=== PATIENT | male | born 1955 | race Caucasian/White ===

== ENCOUNTER 2023-02-03 10:12 | Outpatient (CLI) | payer MEDICARE, SELFPAY ==
[2023-02-03 12:16] LABS: Urine Cotinine NEGATIVE
== END 2023-02-03 10:13 | disposition home or self-care (01) ==
PROVIDERS: PCP Family Medicine; Visit Provider Neurological Surgery
DX: F17.200 Nicotine dependence, unspecified, uncomplicated (principal); Z79.899 Other long term (current) drug therapy
CPT/HCPCS: 80307

== ENCOUNTER 2023-02-27 10:11 | Outpatient (CLI) | payer MEDICARE, SELFPAY ==
[2023-02-27 12:30] LABS: Hematocrit 32.5 % (42.0-52.0); Hemoglobin 10.4 g/dL (14.0-18.0); Mean Corpuscular Volume 103.2 fl (80-100); Mean Platelet Volume 10.4 fl (7.4-10.4); Platelet Count Result 349 k/mm3 (150-375); Red Blood Count 3.15 M/mm3 (4.6-6.20); Red Cell Distribution Width 16.6 % (11.5-14.5); White Blood Count 8.5 K/mm3 (4.5-10.0)
[2023-02-27 12:37] LABS: Appearance Urine Clear (Clear); Bacteria Urine None Seen /hpf; Bilirubin Urine Negative (Negative); Blood Urine Trace (Negative); Color Urine Yellow (Yellow); Glucose Urine UA Negative (Negative); Ketones Urine Negative (Negative); Leukocyte Esterase Ur Negative LEU/UL (Negative); Nitrate Urine Negative (Negative); Non Pathogenic Casts 0-2; Protein Urine Negative (Negative); Specific Grav Ur 1.017 (1.001-1.035); Squamous Epithelial Cell Urine None seen /hpf (Few); Urobilinogen Urine 0.2 mg/dL (<2.0); WBC Urine 0-5 /hpf
[2023-02-27 12:42] LABS: Add Urine Microscopic? YES
[2023-02-27 12:44] LABS: Anion Gap 7 mmol/L (8-16); Blood Urea Nitrogen 10 mg/dL (9-20); Calcium 9.1 mg/dL (8.4-10.2); Carbon Dioxide 27 mmol/L (22-30); Chloride 102 mmol/L (98-107); Estimated Glomerular Filt Rate > 60; Glucose 97 mg/dL (65-110); Potassium 3.7 mmol/L (3.4-5.0); Sodium 136 mmol/L (137-145)
[2023-02-27 12:48] LABS: Prothrombin Time 13.1 Seconds (11.1-14.7)
[2023-02-27 12:50] LABS: Partial Thromboplastin Time 45.2 SECONDS (22.3-36.8)
== END 2023-02-27 10:12 | disposition home or self-care (01) ==
LOC: ANHSURGERY 10:19
PROVIDERS: PCP Family Medicine; Visit Provider Neurological Surgery
DX: G95.9 Disease of spinal cord, unspecified (principal); Z01.818 Encounter for other preprocedural examination
CPT/HCPCS: 36415; 80048; 81001; 85027; 85610; 85730; 86850; 86900; 86901

== ENCOUNTER 2023-03-01 10:20 | Inpatient (IN) | payer MEDICARE, SELFPAY ==
--- NOTE | 2023-02-24 14:07 | PC.NURSE ---
Report to the Outpatient Waiting Room, entrance under the green pavilion located off [facility], at [email or web address] on date __03/01/23 . Planned Procedure Time: _1030 . Time changes happen often and if your time is changed the preop area will call you the afternoon before. - You and your visitor will be asked to self-screen and do not enter if you have any COVID symptoms. - A mask is optional within the hospital at this time. Patients may have clear liquids (water, carbonated beverages, clear teas, apple juice) until 3 hours prior to surgery with a maximum of 20 ounces. - No food from midnight until time of surgery - Infants may have breast milk until 4 hours before surgery, formula 6 hours prior to surgery. - Children will be allowed to drink immediately following surgery. If applicable, please bring a bottle or sippy cup to assist with drinking. Juice, water, soda, and popsicles are readily available. For infants on formula, please bring formula the day of surgery. Pacifiers are allowed. Take the following medications with a SIP of water the morning of surgery: __GABAPENTIN DO NOT STOP ANY OF YOUR OTHER PRESCRIPTION MEDICATIONS PRIOR TO SURGERY ?EXCEPT THE FOLLOWING Medications to discontinue per physician _SPOUSE STATES HOLD ASPIRIN AND MELOXICAM LAST DOSE 02/21/[address] LAU Please no make-up, nail mongolian, hairspray, perfume, deodorant, or body powder the day of surgery. No jewelry (including any body piercings) or valuables the day of surgery, leave them at home. Please take a shower or bath the night before, or the morning of, surgery with an antibacterial soap. Wear comfortable, loose fitting clothing. Children are encouraged to wear pajamas. - Jewelry must be removed prior to entering the operating room. Rings and piercings that are not removed may be cut off. - The hospital will not accept responsibility for valuables. - Please leave all valuables, including medications, at home the day of surgery. If you are going home after surgery, a licensed class b truck driver must drive you home. - NO public transportation without another adult if you receive anesthesia. - We recommend that an adult stay with you for 24 hours following discharge. - We also recommend that you do not drive, make important decision, drink alcoholic beverages, or take any drugs that were not prescribed by your health care provider for at least 24 hours after your discharge time. For Pediatric surgeries, we recommend two adults accompany the child home. Follow any additional instructions given to you from your surgeon. If you or anyone in your household have experienced Covid symptoms in the past week, please notify your surgeon or the nurse liaison at the phone number below for possible testing. Telephone instructions given to _SPOUSE VICKI and asked if any additional questions and then verbalized understanding. Patient advised to call surgeon office or pre surgery nurse liaison [phone] if any additional questions.
[2023-02-24 14:17] VITALS: BMI 29.7
[2023-03-01] VITALS (24 sets, daily range): BP systolic 86–156; BP diastolic 45–95; PULSE 67–87; RESP 12–20; TEMP 35.6–37.3; O2SAT 94–100
--- NOTE | ~2023-03-01 | XR_ITS ---
EXAMINATION: XR fluoroscopy no charge DATE: 03/01/2023 11:34 INDICATION: Cervical decompression TECHNIQUE: 3 fluoroscopic images of the spine were obtained during procedure performed by Dr. Rea . Radiologist was not present for the imaging or procedure. The amount of fluoroscopy time used fili g this procedure was 0.4 minutes. COMPARISON: CT dated 01/27/2011 FINDINGS: Images demonstrate C3-C6 laminectomies and C3-T7 instrumented posterior spinal fusion with bilateral vertical marlin and lateral mass screw fixation. Endotracheal tube with distal tip below the level of th e thoracic inlet. IMPRESSION: 1. C3-C6 laminectomies and C3-C7 instrumented posterior spinal fusion. See procedure note for further detail. Reviewed, dictated and finalized at location A. SPECIALIST IMPRESSION: 1. C3-C6 laminectomies and C3-C7 instrumented posterior spinal fusion. See proc edure note for further detail.
[2023-03-01] MEDS: LACTATED RINGERS 1,000 ML 30 ML IV CONT ×3 (07:00→14:14)
--- NOTE | 2023-03-01 07:07 | WPDANESEPPF ---
Anes - Initial Pre Proc Eval Procedure: Operation Date: 03/01/23 07:30 Proposed Procedures p Posterior Cervical Decompression and Fusion C3-4, C6-7 - Coty Rea MD Date/Time: 03/01/23 07:07 Surgeon: Coty Rea MD Pre Op Diagnosis: Cerv Stenosis Patient Data Age: 67 Gender: M Height: 1.74 m Weight: 89.95 kg Allergies Allergy/AdvReac Type Severity Reaction Status Date / Time No Known Allergies Allergy Unknown Verified 02/24/23 13:45 Home Medications Medication Instructions Recorded Confirmed Type aspirin 81 mg tablet,delayed 81 mg PO DAILY 01/06/23 02/24/23 History release (Adult Low Dose Aspirin) cetirizine 10 mg capsule (Zyrtec) 10 mg PO DAILY PRN Allergy Symptoms 01/06/23 02/24/23 History citalopram 40 mg tablet 40 mg PO HS 01/06/23 02/24/23 History meloxicam 15 mg tablet 15 mg PO DAILY 01/06/23 02/24/23 History methocarbamol 750 mg tablet 750 mg PO TID 01/06/23 02/24/23 History rosuvastatin 5 mg tablet 5 mg PO HS 01/06/23 02/24/23 History albuterol sulfate 90 mcg/actuation 1 inh inhalation QID PRN Shortness 02/24/23 02/24/23 History aerosol inhaler Of Breath cimetidine 200 mg tablet 200 mg PO DAILY 02/24/23 02/24/23 History gabapentin 600 mg tablet 600 mg PO BID 02/24/23 02/24/23 History hydrocodone 7.5 mg-acetaminophen 1 tablet PO PRN PRN Pain 02/24/23 02/24/23 History 325 mg tablet lorazepam 0.5 mg tablet 0.5 mg PO HS 02/24/23 02/24/23 History Laboratory Tests 03/01/23 06:59 APTT Pending Patient hx anesthesia problems: none Family hx anesthesia problems: none Results Review: All pre-operative results and documents have been reviewed as part of the pre-operative evaluation. [facility] Past Medical History Medical History BMI 29.0-29.9,adult BMI 30.0-30.9,adult Hernia Surgical History Surgical History H/O rotator cuff surgery History of ankle surgery Family History Family History Father Heart disease Mother Sibling Hypertension Heart disease Breast cancer Brain tumor Social History Social History Smoking packs per day: 2 Smoking cigarettes per day: 40.0 Years smoked: 55 Smoking pack-years: 110.00 Smoking status: Former smoker Tobacco type: cigarettes Second hand tobacco smoke exposure: Yes Smoking end date: 01/27/23 Alcohol intake: current Drinks per week: 6 Substance use: never Substance use type: does not use Lack of Transportation: No Lack of Food: Never True Current Housing: I Have Housing Concerned About Future Housing: No Difficulty Paying Gas/Electric Bills: No Difficulty Paying for Meds: No Currently Unemployed: No Education: High School Diploma/GED Difficulty w/ Childcare or Family Care: No Living arrangements: with family Occupation/Education: retired Additional occupation/education comments: [employer] Gender identity (if verbalized by the patient): Male Spiritual care concerns: No Anes - Eval Final PreProcedure Day of Procedure 03/01/23 07:07 Patient weight: overweight Heart: regular rate and rhythm Lungs: decreased breath sounds Airway: Mallampati scale class II Neurological: alert and oriented Last oral intake: >/= 8 hours ASA classification: III Emergent: no Anesthetic plan: proceed Anesthesia type and monitoring: general ETT and standard monitoring Results Review: All pre-operative results and documents have been reviewed as part of the pre-operative evaluation. Informed Consent: The patient's anesthetic plan and its attendant risks and benefits were discussed with the patient/family/POA. Questions were solicited and answers provided to the satisfaction of the patient/family/POA.
--- NOTE | 2023-03-01 07:18 | WPDHPUPDATE1 ---
History and Physical Update Update Date/Time: 03/01/23 07:18 History and Physical has been reviewed, including an updated exam of the patient. There are NO changes in the patient's condition. Risks, benefits, and alternatives have been discussed and questions answered. Patient agrees to proceed with procedure.
[2023-03-01 07:29] LABS: Partial Thromboplastin Time 41.6 SECONDS (22.3-36.8)
--- NOTE | 2023-03-01 07:35 | SUR.PREOP ---
PTT WAS ELEVATED, DR LAU AWARE, ALSO SCRATCHES WERE FOUND ON HIS LEFT LEG. PT HAD SCRATCHED HIMSELF. DR LAU AWARE, OK TO PROCEDE.
[2023-03-01] MEDS: ceFAZolin 2 GM/D5W 50 ML 2 GM/50 ML BAG IVPB ×2 (07:39→16:42)
[2023-03-01] MEDS: CLINDAMYCIN 900 MG/D5W 50 ML 900 MG/50 ML PIGGYBACK 50 MG IVPB (08:51)
[2023-03-01] MEDS: VANCOMYCIN HCL 1,000 MG VIAL 1000 MG TOPICAL (09:15)
[2023-03-01] MEDS: BUPIVACAINE/EPINEPHRINE 0.5% 50 ML VIAL 20 ML INFILTRATE (09:18)
--- NOTE | 2023-03-01 12:21 | PM.OP ---
Procedure Note - Brief Procedure Note - Brief Date of procedure: 03/01/23 cervical myelopathy, cervical stenosis, cervical spondylolisthesis C4-5 Post-op diagnosis: Same Procedure performed: Posterior cervical instrumentation and arthrodesis C3-4, C4-5, C5-6, C6-7 Posterior cervical laminectomy C4, C5, and C6 Use of neuromonitoring Surgeon: Coty Rea MD Anesthesia: GETA Findings: Successful procedure without complication. Stable neuromonitoring throughout the case Estimated blood loss (mL): 500 Drains: Yes Packing: No Pathology: None sent Complications: None Condition: Stable Disposition: PACU
[2023-03-01] MEDS: hetaSTARCH 6%/NACL 500 ML IV CONT (12:40)
[2023-03-01 12:53] LABS: Hematocrit 27.3 % (42.0-52.0); Hemoglobin 8.6 g/dL (14.0-18.0)
[2023-03-01] MEDS: SODIUM CHLORIDE 0.9% IV 250 ML 30 ML IV CONT (13:20)
[2023-03-01] MEDS: fentaNYL CITRATE INJ (*CRX) 100 MCG/2 ML VIAL 25 MCG IV PUSH ×4 (13:55→14:28)
--- NOTE | 2023-03-01 14:10 | W.PM.PROC2 ---
Procedure Note - Detailed Date of Procedure 03/01/23 Pre-op Diagnosis Cervical myelopathy Cervical stenosis Cervical spondylolisthesis at C4-5 Post-op Diagnosis Same Procedure Performed 1. C3, C4, C5, C6, and C7 lateral mass instrumentation 2. C3-4, C4-5, C5-6, and C6-7 arthrodesis with autograft and allograft 3. C4, C5, and C6 laminectomies 4. Use of C-arm for fluoroscopy 5. Use of neuromonitoring including motors, SSEP, and EMG Surgeon Coty Rea MD Anesthesia General Description of Procedure The patient was brought to the operating room where endotracheal anesthesia was induced. Neuromonitoring leads were attached. The [place] headholder was applied, and the patient was transferred to the operating table in the prone position. The head was secured to the bed. All pressure points were padded. The C-arm was used to evaluate the planned incision. The planned surgical site was prepped and draped in usual sterile fashion. Time out was conducted, and local anesthesia was injected. A 10-blade scalpel was used to make the incision. The subcutaneous tissue was dissected with the bovie until the spinous processes were encountered. Self-retaining retractors were placed. A clamp was placed on a spinous process which was confirmed to be the C3 level with the C-arm. The incision was extended inferiorly to better expose down to the inferior level. The muscles were elevated in a subperiosteal fashion to expose the laminae and lateral masses of C3 through C7 bilaterally. The facet joints were exposed and defined with the bovie, and the fighter pilot holes for the lateral mass screws were created with the high-speed drill. On the right side, the hand drill was used to drill through the lateral mass to a depth of 12mm at C3. The trajectory was palpated with a ball-tip probe to ensure where were no breeches in the bone. The drill was then lengthened to 14mm. The 3.0mm tap was then passes. This was repeated at C4, C5, C6, and C7. Bone wax was placed over the screw holes. This was then repeated on the left side at C3, C4, C5, C6, and C7. No bone breaches were noted at the depth of 14mm. We then turned our attention to the laminectomies. The high-speed drill was used to create a trough through the laminae of C4, C5, and C6. The posterior elements were elevated with a Leksell and Kerrison rongeurs, and the bone was passed off to be morselized for autograft. The ligamentum flavum was elevated with the bone. Small residual pieces of ligamentum and bone were removed with the kerrison. The facet joints were decorticated with the drill.? We ensured hemostasis with the bipolar and Floseal. We next turned our attention to the lateral mass screws. The screw trajectories were palpated again with the balltip probe. 14 x 3.5mm screws were placed at each level bilaterally. 70mm rods were placed followed by set screws which were final tightened. The area was copiously irrigated. Autograft mixed with i-Factor was placed lateral to the screws bilaterally and into the facets. A hemovac drain was placed in the epidural space and tunneled inferiorly. Vancomycin powder was placed into the surgical field. A final motor was completed with no changes in monitoring throughout the procedure. The muscle was approximated with 0 vicryl. The fascia was closed with 0 vicryl as well. The dermis was closed with 2-0 and 3-0 vicryl. The skin was closed with running 3-0 nylon. The drain was secured with a nylon as well. Sterile dressings were placed. The patient was then removed from the [place] headholder and returned supine. The patient was extubated and transferred to the PACU in stable condition. Billing codes: 18252, 37228, 68973, 15874 x 3, 53332 Implants 1. 10 3.5 x 14mm Surgalign screws 2. Two 70m rods 3. 10 set screws 4. 5cc i-Factor Estimated Blood Loss -500.0 Drains Yes Packing No Pathology None sent Complications None Condition Stable Disposition PACU [facility] Billing Surgery - Charge Forward:
[2023-03-01] MEDS: oxyCODONE HCL (*CRX) 5 MG TAB IR PO (15:32)
[2023-03-01] MEDS: SODIUM CHLORIDE 0.9% IV 1,000 ML 100 ML IV CONT (15:35)
--- NOTE | 2023-03-01 15:44 | ADMGEN ---
This patient, Carlos Blue Jr., was admitted to 3 [facility] Surg Room 314-01. Patient/family oriented to hospital policies and general routines including ID bracelet, bed and alarms, visiting hours, pain management, procedures, bathroom and other care routines, personal items, smoking policy, room service/diet, and visiting hours. Information on how to activate the Rapid Response Team has been discussed. Patient/Family are encouraged to report perceived risks to care and to ask questions if they do not understand what they are told or what they should do. Report from Frances in pacu
[2023-03-01] MEDS: GABAPENTIN 300 MG CAPSULE 600 MG PO (16:43)
[2023-03-01] MEDS: ACETAMINOPHEN 500 MG TABLET 1000 MG PO (16:59)
[2023-03-01] MEDS: oxyCODONE HCL (*CRX) 5 MG TAB IR 10 MG PO ×2 (18:04→21:14)
[2023-03-01] MEDS: DOCUSATE SODIUM 100 MG CAPSULE PO (21:12)
[2023-03-01] MEDS: CYCLOBENZAPRINE HCL 10 MG TABLET PO (21:13)
[2023-03-01] MEDS: CITALOPRAM HYDROBROMIDE 20 MG TABLET 40 MG PO (21:13)
[2023-03-01] MEDS: ROSUVASTATIN 5 MG TABLET PO (21:13)
[2023-03-02] MEDS: ACETAMINOPHEN 500 MG TABLET 1000 MG PO ×4 (00:27→17:07)
[2023-03-02] MEDS: ceFAZolin 2 GM/D5W 50 ML 2 GM/50 ML BAG IVPB ×3 (00:27→17:07)
[2023-03-02 03:23] VITALS: BP 147/59; PULSE 73; RESP 16; TEMP 36.9; O2SAT 92
[2023-03-02] MEDS: oxyCODONE HCL (*CRX) 5 MG TAB IR 10 MG PO ×3 (03:54→15:46)
[2023-03-02] MEDS: CYCLOBENZAPRINE HCL 10 MG TABLET PO (03:56)
[2023-03-02 07:23] VITALS: BP 138/59; PULSE 73; RESP 20; TEMP 36.8; O2SAT 90
[2023-03-02] MEDS: FAMOTIDINE 20 MG TABLET PO (08:58)
[2023-03-02] MEDS: DOCUSATE SODIUM 100 MG CAPSULE PO ×2 (08:59→22:24)
[2023-03-02] MEDS: GABAPENTIN 300 MG CAPSULE 600 MG PO ×2 (08:59→17:07)
--- NOTE | 2023-03-02 09:15 | WPDANESPN ---
Anes - Prog Note Post-Op Date/Time: 03/02/23 09:15 Cardiovascular status: normal Respiratory status: normal Airway patency: baseline Mental status: baseline Post-Op hydration status: normal Vital Signs: Last Vital Signs Temp 36.8 C 03/02/23 07:23 Pulse 73 03/02/23 07:23 Resp 20 03/02/23 07:23 BP 138/59 L 03/02/23 07:23 Pulse Ox 90 03/02/23 07:23 O2 Del Method Room Air 03/01/23 20:00 O2 Flow Rate 3 03/01/23 15:00 Pain Score (VAS): 10 I/O: Intake & Output 03/01/23 03/02/23 03/02/23 23:59 07:59 15:59 Intake Total 290 350 Output Total 70 130 25 Balance 220 220 -25 Laboratory Tests 03/01/23 12:42 03/01/23 03/01/23 12:42 12:45 Hgb 8.6 L Hct 27.3 L Blood Type Cancelled Rho(D) Type Cancelled Antibody Screen Cancelled Crossmatch See Detail Post-procedural complaints: none Patient Feedback: Patient satisfied with anesthetic care.
[2023-03-02 11:23] VITALS: BP 125/53; PULSE 71; RESP 18; TEMP 36.7; O2SAT 93
[2023-03-02 15:23] VITALS: BP 159/66; PULSE 80; RESP 20; TEMP 36.7; O2SAT 98
--- NOTE | 2023-03-02 17:30 | WPDNEUROSGPN ---
Progress Note: A&P Assessment and Plan (1) Cervical myelopathy: Code(s): G95.9 - Disease of spinal cord, unspecified Status: Acute (2) Status post cervical arthrodesis: Code(s): Z98.1 - Arthrodesis status Status: Acute Plan s/p PCF C3-7, laminectomy C4, C5, and C6 on 03/01 Plan: -Increase oxycodone to q4 hours -Change flexeril to robaxin -Hemovac drain removed -Continue to ambulate with PT/OT who is currently recommending discharge home with outpatient therapy Subjective Date/time seen: 03/02/23 17:30 Interval history: Overall doing well with expected neck pain which is not adequately being controlled with medication. Thinks his hands feel stronger today. Was able to ambulate with therapy and felt steady on his feet. Arvin dizzy this morning when eating breakfast but has been otherwise feeling well. Voiding independently and tolerating PO. 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, otherwise stable motor exam Sensation intact to light touch Objective Data Vital Signs Vital Signs: Vital Signs - 24 hr 03/01/23 17:42 03/01/23 17:57 03/01/23 19:23 Temperature 96.1 F L 99.1 F Pulse Rate 81 86 Respiratory Rate 20 16 Blood Pressure 137/72 140/63 Pulse Oximetry 97 97 94 Oxygen Delivery Room Air 03/01/23 23:23 03/01/23 20:00 03/02/23 03:23 Temperature 98.9 F 98.5 F Pulse Rate 87 87 73 Respiratory Rate 16 16 16 Blood Pressure 138/68 147/59 H Pulse Oximetry 95 95 92 Oxygen Delivery Room Air 03/02/23 07:23 03/02/23 08:47 03/02/23 11:23 Temperature 98.3 F 98.0 F Pulse Rate 73 71 Respiratory Rate 20 18 Blood Pressure 138/59 L 125/53 L Pulse Oximetry 90 93 Oxygen Delivery Room Air 03/02/23 08:00 03/02/23 15:23 Temperature 98.1 F Pulse Rate 80 Respiratory Rate 20 Blood Pressure 159/66 H Pulse Oximetry 98 Oxygen Delivery Room Air Intake/Output Intake/Output: Intake & Output 02/27/23 02/28/23 03/01/23 03/02/23 23:59 23:59 23:59 23:59 Intake Total 1590 640 Output Total 100 155 Balance 1490 485 Meds/Results Medications: Active Medications Generic Name Dose Route Start Last Admin Trade Name Freq PRN Reason Stop Dose Admin Acetaminophen 1,000 mg 03/01/23 18:00 03/02/23 17:07 Acetaminophen 500 Mg Tablet PO 1,000 mg Q6H BABAK Administration Al Hydrox/Mg Hydrox/Simethicone 20 ml 03/01/23 12:23 Mag Hydrox/Al Hydrox/Simeth 30 Ml Udc PO Q4H PRN Indigestion/Heartburn Albuterol 1 puff 03/01/23 12:26 Albuterol Sulfate (*Sp) Aerosol 1 Puff INHALATION QID PRN Shortness Of Breath Bisacodyl 10 mg 03/01/23 12:23 Bisacodyl 10 Mg Suppository RECTAL DAILY PRN Constipation Citalopram Hydrobromide 40 mg 03/01/23 21:00 03/01/23 21:13 Citalopram Hydrobromide 20 Mg Tablet PO 40 mg HS BABAK Administration Cyclobenzaprine HCl 10 mg 03/01/23 12:23 03/02/23 03:56 Cyclobenzaprine Hcl 10 Mg Tablet PO 10 mg TID PRN Administration Muscle Spasms Docusate Sodium 100 mg 03/01/23 21:00 03/02/23 08:59 Docusate Sodium 100 Mg Capsule PO 100 mg Q12HR BABAK Administration Famotidine 20 mg 03/02/23 09:00 03/02/23 08:58 Famotidine 20 Mg Tablet PO 20 mg DAILY BABAK Administration Gabapentin 600 mg 03/01/23 17:00 03/02/23 17:07 Gabapentin 300 Mg Capsule PO 600 mg BID BABAK Administration Cefazolin Sodium 2 gm in 50 mls @ 100 mls/hr 03/01/23 16:00 03/02/23 17:07 Ancef 2 Gm/D5w 50 Ml IVPB 100 mls/hr Q8H BABAK Administration Loratadine 10 mg 03/02/23 09:00 Loratadine 10 Mg Tablet PO QAM PRN Allergic Symptoms Ondansetron HCl 4 mg 03/01/23 12:23 Ondansetron Inj 4 Mg/2 Ml Vial IV PUSH Q8H PRN Nausea And Vomiting Oxycodone HCl 5 mg 03/01/23 12:23 11
[2023-03-02 20:00] VITALS: PULSE 83; RESP 16; O2SAT 92
[2023-03-02 22:00] VITALS: BP 134/62; PULSE 83; RESP 16; TEMP 36.7; O2SAT 92
[2023-03-02] MEDS: CITALOPRAM HYDROBROMIDE 20 MG TABLET 40 MG PO (22:25)
[2023-03-02] MEDS: methocarbamoL 750 MG TABLET PO (22:25)
[2023-03-02] MEDS: ROSUVASTATIN 5 MG TABLET PO (22:25)
[2023-03-03] MEDS: ACETAMINOPHEN 500 MG TABLET 1000 MG PO ×5 (00:27→23:00)
[2023-03-03] MEDS: ceFAZolin 2 GM/D5W 50 ML 2 GM/50 ML BAG IVPB ×4 (00:27→23:00)
[2023-03-03] MEDS: oxyCODONE HCL (*CRX) 5 MG TAB IR 10 MG PO ×6 (02:09→22:05)
[2023-03-03 06:00] VITALS: BP 150/66; PULSE 81; RESP 16; TEMP 36.5; O2SAT 90
[2023-03-03] MEDS: methocarbamoL 750 MG TABLET PO ×2 (06:12→11:22)
[2023-03-03] MEDS: FAMOTIDINE 20 MG TABLET PO (09:32)
[2023-03-03] MEDS: GABAPENTIN 300 MG CAPSULE 600 MG PO ×2 (09:32→18:08)
--- NOTE | 2023-03-03 12:22 | WPDNEUROSGPN ---
Progress Note: A&P Assessment and Plan (1) Status post cervical arthrodesis: Code(s): Z98.1 - Arthrodesis status Status: Acute Plan s/p PCF C3-7, laminectomy C4, C5, and C6 on 03/01 Plan: -Continue oxycodone and robaxin (this was switched from flexeril yesterday) -Continue to ambulate with PT/OT who is currently recommending discharge home with outpatient therapy. Planning for discharge tomorrow. Time Spent With Patient Time with patient: less than 15 minutes Subjective Date/time seen: 03/03/23 12:22 Interval history: Patient complains of ongoing neck soreness. Says the soft collar is bothering him and wants to remove it this am. Does not report any new symptoms. Exam Narrative: AOx4 Soft collar removed Dressing also removed, incision is c/d/i with sutures present Improving strength in hand groover and turner from pre-op, otherwise stable motor exam Sensation intact to light touch Objective Data Vital Signs Vital Signs: Vital Signs - 24 hr 03/02/23 15:23 03/02/23 22:00 03/02/23 20:00 Temperature 98.1 F 98.1 F Pulse Rate 80 83 83 Respiratory Rate 20 16 16 Blood Pressure 159/66 H 134/62 Pulse Oximetry 98 92 92 Oxygen Delivery Room Air 03/03/23 06:00 Temperature 97.7 F Pulse Rate 81 Respiratory Rate 16 Blood Pressure 150/66 H Pulse Oximetry 90 Oxygen Delivery Intake/Output Intake/Output: Intake & Output 02/28/23 03/01/23 03/02/23 03/03/23 23:59 23:59 23:59 23:59 Intake Total 1590 1090 600 Output Total 100 155 Balance 1490 935 600 Meds/Results Medications: Active Medications Generic Name Dose Route Start Last Admin Trade Name Freq PRN Reason Stop Dose Admin Acetaminophen 1,000 mg 03/01/23 18:00 03/03/23 06:11 Acetaminophen 500 Mg Tablet PO 1,000 mg Q6H BABAK Administration Al Hydrox/Mg Hydrox/Simethicone 20 ml 03/01/23 12:23 Mag Hydrox/Al Hydrox/Simeth 30 Ml Udc PO Q4H PRN Indigestion/Heartburn Albuterol 1 puff 03/01/23 12:26 Albuterol Sulfate (*Sp) Aerosol 1 Puff INHALATION QID PRN Shortness Of Breath Bisacodyl 10 mg 03/01/23 12:23 Bisacodyl 10 Mg Suppository RECTAL DAILY PRN Constipation Citalopram Hydrobromide 40 mg 03/01/23 21:00 03/02/23 22:25 Citalopram Hydrobromide 20 Mg Tablet PO 40 mg HS BABAK Administration Docusate Sodium 100 mg 03/01/23 21:00 03/03/23 09:32 Docusate Sodium 100 Mg Capsule PO Not Given Q12HR BABAK Famotidine 20 mg 03/02/23 09:00 03/03/23 09:32 Famotidine 20 Mg Tablet PO 20 mg DAILY BABAK Administration Gabapentin 600 mg 03/01/23 17:00 03/03/23 09:32 Gabapentin 300 Mg Capsule PO 600 mg BID BABAK Administration Cefazolin Sodium 2 gm in 50 mls @ 100 mls/hr 03/01/23 16:00 03/03/23 11:05 Ancef 2 Gm/D5w 50 Ml IVPB Infused Q8H BABAK Infusion Loratadine 10 mg 03/02/23 09:00 Loratadine 10 Mg Tablet PO QAM PRN Allergic Symptoms Methocarbamol 750 mg 03/02/23 17:34 03/03/23 11:22 Methocarbamol 750 Mg Tablet PO 750 mg QID PRN Administration Muscle Spasm Ondansetron HCl 4 mg 03/01/23 12:23 Ondansetron Inj 4 Mg/2 Ml Vial IV PUSH Q8H PRN Nausea And Vomiting Oxycodone HCl 5 mg 03/02/23 17:35 Oxycodone Hcl (*Crx) 5 Mg Tab Ir PO Q4H PRN Pain Rated 4-6 Oxycodone HCl 10 mg 03/02/23 17:35 03/03/23 09:35 Oxycodone Hcl (*Crx) 5 Mg Tab Ir PO 10 mg Q4H PRN Administration Pain Rated 7-10 Rosuvastatin Calcium 5 mg 03/01/23 21:00 03/02/23 22:25 Rosuvastatin 5 Mg Tablet PO 5 mg HS BABAK Administration Senna/Docusate Sodium 1 tab 03/01/23 12:23 Senna/Docusate Sodium Tablet PO HS PRN Constipation Radiology Results: ITS Impressions Fluoroscopy 03/01/23 15:46 IMPRESSION: 1. C3-C6 laminectomies and C3-C7 instrumented posterior spinal fusion. See procedure note for further detail.
--- NOTE | 2023-03-03 12:31 | PCPTNOTE ---
PT attempted to see patient 2x this morning. First attempt patient refused stating neck pain was 10/10 and he had not had pain meds or breakfast this morning. Returned at 11:30 and patient reports 9 out of 10 after receiving pain medication. Patient states he performed bed mobility and OT prior to PT and continues to have pain. PT will follow up later today.
[2023-03-03 14:00] VITALS: BP 142/63; PULSE 91; RESP 18; TEMP 36.8; O2SAT 94
[2023-03-03 20:00] VITALS: O2SAT 94
[2023-03-03] MEDS: DOCUSATE SODIUM 100 MG CAPSULE PO (20:32)
[2023-03-03] MEDS: ROSUVASTATIN 5 MG TABLET PO (20:32)
[2023-03-03] MEDS: CITALOPRAM HYDROBROMIDE 20 MG TABLET 40 MG PO (20:32)
[2023-03-03 22:00] VITALS: BP 131/69; PULSE 74; RESP 16; TEMP 36.8; O2SAT 90
[2023-03-04] MEDS: methocarbamoL 750 MG TABLET PO ×2 (00:48→09:22)
--- NOTE | 2023-03-04 01:17 | PC.NURSE ---
pt having little output and difficulty with voiding, bladder scanning and will straight cath if indicated by bladder scanner results.
[2023-03-04] MEDS: oxyCODONE HCL (*CRX) 5 MG TAB IR 10 MG PO ×2 (02:05→05:41)
[2023-03-04] MEDS: ACETAMINOPHEN 500 MG TABLET 1000 MG PO ×3 (05:26→18:20)
[2023-03-04 05:38] VITALS: BP 121/56; PULSE 69; RESP 16; TEMP 37.1; O2SAT 91
[2023-03-04] MEDS: FAMOTIDINE 20 MG TABLET PO (09:21)
[2023-03-04] MEDS: GABAPENTIN 300 MG CAPSULE 600 MG PO ×2 (09:21→16:28)
[2023-03-04] MEDS: ceFAZolin 2 GM/D5W 50 ML 2 GM/50 ML BAG IVPB ×2 (09:21→16:27)
[2023-03-04] MEDS: DOCUSATE SODIUM 100 MG CAPSULE PO ×2 (09:22→20:44)
--- NOTE | 2023-03-04 09:42 | PCOTNOTE ---
Attempted to see pt for Occupational Therapy treatment. Per RN, pt is not appropriate at this time due to severe pain despite recent pain medication. RN states that a call has been placed to Dr for further pain relief. Will attempt at a later time today if pt is able.
--- NOTE | 2023-03-04 09:50 | PCPTNOTE ---
Attempted treatment at 9:50 but per RN, hold until later on when he able to get more pain meds.
[2023-03-04] MEDS: HYDROmorphone HCL INJ (*CRX) 1 MG/ML SYR 0.25 MG IV PUSH (11:39)
[2023-03-04] MEDS: HYDROmorphone HCL INJ (*CRX) 1 MG/ML SYR IV PUSH ×3 (12:56→16:35)
--- NOTE | 2023-03-04 13:50 | PCOTNOTE ---
Per RN, pt continues to not be appropriate for Occupational therapy treatment this afternoon. Pt is experiencing significant pain and is unable to complete any mobility in/out of bed or eat today per RN. Will continue per poc duration/frequency tomorrow.
[2023-03-04 14:13] VITALS: BP 141/73; PULSE 77; RESP 20; TEMP 36.3; O2SAT 91
[2023-03-04] MEDS: oxyCODONE HCL (*CRX) 5 MG TAB IR PO (15:05)
[2023-03-04] MEDS: oxyCODONE HCL (*CRX) 10 MG TAB SR 12HR PO ×2 (15:06→20:44)
[2023-03-04 16:19] VITALS: BP 141/77; PULSE 77; RESP 20; TEMP 36.1; O2SAT 93
[2023-03-04 20:00] VITALS: PULSE 76; RESP 20; O2SAT 93
[2023-03-04] MEDS: CITALOPRAM HYDROBROMIDE 20 MG TABLET 40 MG PO (20:44)
[2023-03-04] MEDS: ROSUVASTATIN 5 MG TABLET PO (20:44)
[2023-03-04 21:52] VITALS: BP 127/59; PULSE 76; RESP 20; TEMP 36.3; O2SAT 93
[2023-03-05] VITALS (7 sets, daily range): BP systolic 114–130; BP diastolic 55–83; PULSE 65–110; RESP 16–20; TEMP 36.1–36.8; O2SAT 92–96
[2023-03-05] MEDS: methocarbamoL 750 MG TABLET PO (00:44)
[2023-03-05] MEDS: ACETAMINOPHEN 500 MG TABLET 1000 MG PO ×4 (00:44→17:34)
[2023-03-05] MEDS: ceFAZolin 2 GM/D5W 50 ML 2 GM/50 ML BAG IVPB ×2 (00:45→09:02)
[2023-03-05] MEDS: oxyCODONE HCL (*CRX) 5 MG TAB IR 10 MG PO ×2 (01:25→06:37)
[2023-03-05] MEDS: HYDROmorphone HCL INJ (*CRX) 1 MG/ML SYR IV PUSH (09:02)
[2023-03-05] MEDS: FAMOTIDINE 20 MG TABLET PO (09:03)
[2023-03-05] MEDS: DOCUSATE SODIUM 100 MG CAPSULE PO ×2 (09:03→21:00)
[2023-03-05] MEDS: oxyCODONE HCL (*CRX) 10 MG TAB SR 12HR PO ×2 (09:03→21:00)
--- NOTE | 2023-03-05 10:35 | WPDNEUROSGPN ---
Progress Note: A&P Assessment and Plan (1) Status post cervical arthrodesis: Code(s): Z98.1 - Arthrodesis status Status: Acute Plan I recommend he stay on bedrest this afternoon and forgo physical therapy today as he is in too much pain despite a long acting and short acting oxycodone with prn IV dilaudid. He did no require the IV dilaudid last night, but may require some today due to the increase in pain. Once his pain is more well controlled and he is able to move from bed he should work with physical therapy and having a bowel movement. He is not ready for discharge today. Time Spent With Patient Time: 15 minutes Subjective Date/time seen: 03/05/23 10:35 Interval history: Pain poorly controlled. PAtient was previously on scheduled tylenol, prn robaxin, prn oxycodone with 10/10 pain. over the past 24 hours I have added mscontin 10mg BID, as well as 1mg IV dilaudid q1hour prn pain. He has also had some serous drainage from the superior aspect of his wound. This stops with pressure. I have placed a pressure dressing over his wound and instructed his nurse to change if it becomes saturated. His pain came down to a 4/10, however his pain is up to a 9/10 again. Patient has had flatus but has not had a bowel movement. He has not worked with physical therapy yet. Exam Narrative: awake in moderate distress due to pain MOves BUE well 5/5 including deltoids, biceps, triceps, machine featheredger and reducer, wrist extensors. He does have brisk + brown's bilaterally incision is c/d/i except for a small area superficially with a small amount of drainage. There is no opening of the wound in this area. Objective Data Vital Signs Vital Signs: Vital Signs - 24 hr 03/04/23 14:13 03/04/23 16:19 03/04/23 21:52 Temperature 36.3 C L 36.1 C L 36.3 C L Pulse Rate 77 77 76 Respiratory Rate 20 20 20 Blood Pressure 141/73 H 141/77 H 127/59 L Pulse Oximetry 91 93 93 Oxygen Delivery 03/04/23 20:00 03/05/23 06:20 Temperature 36.1 C L Pulse Rate 76 71 Respiratory Rate 20 18 Blood Pressure 125/83 Pulse Oximetry 93 96 Oxygen Delivery Room Air Intake/Output Intake/Output: Intake & Output 03/02/23 03/03/23 03/04/23 03/05/23 23:59 23:59 23:59 23:59 Intake Total 1090 2110 1740 720 Output Total 155 2200 1375 Balance 935 5936 -841 -110 Meds/Results Medications: Active Medications Generic Name Dose Route Start Last Admin Trade Name Freq PRN Reason Stop Dose Admin Acetaminophen 1,000 mg 03/01/23 18:00 03/05/23 06:17 Acetaminophen 500 Mg Tablet PO 1,000 mg Q6H BABAK Administration Al Hydrox/Mg Hydrox/Simethicone 20 ml 03/01/23 12:23 Mag Hydrox/Al Hydrox/Simeth 30 Ml Udc PO Q4H PRN Indigestion/Heartburn Albuterol 1 puff 03/01/23 12:26 Albuterol Sulfate (*Sp) Aerosol 1 Puff INHALATION QID PRN Shortness Of Breath Bisacodyl 10 mg 03/01/23 12:23 Bisacodyl 10 Mg Suppository RECTAL DAILY PRN Constipation Citalopram Hydrobromide 40 mg 03/01/23 21:00 03/04/23 20:44 Citalopram Hydrobromide 20 Mg Tablet PO 40 mg HS BABAK Administration Docusate Sodium 100 mg 03/01/23 21:00 03/05/23 09:03 Docusate Sodium 100 Mg Capsule PO 100 mg Q12HR BABAK Administration Famotidine 20 mg 03/02/23 09:00 03/05/23 09:03 Famotidine 20 Mg Tablet PO 20 mg DAILY BABAK Administration Gabapentin 600 mg 03/01/23 17:00 03/04/23 16:28 Gabapentin 300 Mg Capsule PO 600 mg BID BABAK Administration Hydromorphone HCl 1 mg 03/04/23 12:51 03/05/23 09:02 Hydromorphone Hcl Inj (*Crx) 1 Mg/Ml Syr IV PUSH 1 mg Q1HR PRN Administration Breakthrough Pain Cefazolin Sodium 2 gm in 50 mls @ 100 mls/hr 03/01/23 16:00 03/05/23 09:02 Ancef 2 Gm/D5w 50 Ml IVPB 100 mls/hr Q8H BABAK Administration Loratadine 10 mg 03/02/23 09:00 Loratadine 10 Mg Tablet PO QAM PRN Allergic Symptoms Magnesium Hydroxide 30 ml 03/04/23 11:25 Magnesium
--- NOTE | 2023-03-05 11:37 | PCPTNOTE ---
PT held on 03/05/23 per MD. Pain is still elevated and therapy to be held at this time.
[2023-03-05] MEDS: oxyCODONE HCL (*CRX) 5 MG TAB IR PO (11:43)
[2023-03-05] MEDS: GABAPENTIN 300 MG CAPSULE 600 MG PO ×2 (11:43→17:40)
[2023-03-05] MEDS: HYDROmorphon 0.2MG/ML PCA(*CRX 6 MG/30 ML PCA.VIAL IV CONT ×2 (12:56→20:22)
--- NOTE | 2023-03-05 16:30 | PC.NURSE ---
During morning bedside shift report, night RN shared with this RN 11 AM that pt had just received pain meds. Pt still appearing uncomfortable. MD called to inquire if pt was ready to D/C. Shared pain control issues with MD who ordered decadron. Called MD again as pain still uncontrolled. Received order for 1g robaxin, before I could place order. Taye BENTON called this RN to ask all orders/communication go through him. Spoke with MD at length. Developed pain plans with hourly reassessments and return calls to MD to continue to develop new plans. At 1800, pt seemed irritated but pain controlled. MD aware. Over night RN, states able to avoid use of dilaudid IVP with use of all other PO meds. At time of bedside report this AM, pt states that pain a 4. Within 30 minutes, pt states pain an 8. Gave 1 mg dilaudid. Pt states pain increased to a 9 on reassessment. call center support representative MD to pt bedside. Pt have moderate drainage from proximal incision site. MD created pressure dressing and order to change PRN. Requested HUMAN RESOURCES SPECIALIST pump as pt again needing hourly pain interventions, similar to yesterday. Received order and HUMAN RESOURCES SPECIALIST set up. Pt resting comfortably throughout the afternoon.
--- NOTE | 2023-03-05 16:49 | PC.NURSE ---
Pt had 1 mg dilaudid IVP additional dose that had been pulled at 1031 that this RN gave emergently bedside r/t pt being examined by neurosurgeon, draining occuring requiring dressing, and returning to be from OT. The order had been d/c'ed to allow for MAIL CLERKS SUPERVISOR orders to be placed without this RN documenting against 1034 dose. I called to pharmacy and spoke with Darrius who was uncertain on how to allow me to chart against that order; utilizing this note as documentation.
[2023-03-05] MEDS: CYCLOBENZAPRINE HCL 5 MG TABLET PO ×2 (17:34→21:00)
[2023-03-05] MEDS: ROSUVASTATIN 5 MG TABLET PO (21:00)
[2023-03-05] MEDS: CITALOPRAM HYDROBROMIDE 20 MG TABLET 40 MG PO (21:00)
[2023-03-06] MEDS: ACETAMINOPHEN 500 MG TABLET 1000 MG PO ×4 (00:18→18:24)
[2023-03-06 05:18] VITALS: BP 98/75; PULSE 72; RESP 18; O2SAT 92
[2023-03-06] MEDS: CYCLOBENZAPRINE HCL 5 MG TABLET PO (05:36)
[2023-03-06] MEDS: MAGNESIUM HYDROXIDE SUSP 30 ML UDC PO (05:37)
[2023-03-06] MEDS: SENNA/DOCUSATE SODIUM TABLET 1 TAB PO (05:37)
--- NOTE | 2023-03-06 05:45 | PC.NURSE ---
pt is itching requesting Benadryl, called MD Mcarthur
--- NOTE | 2023-03-06 05:47 | PC.NURSE ---
neurosurgery exchange called, awaiting call back
[2023-03-06 06:06] VITALS: TEMP 36.4
--- NOTE | 2023-03-06 06:07 | PC.NURSE ---
MD Mcarthur suggest to tell patient to limit the usage of the BAR HELPER pump.
[2023-03-06 08:08] VITALS: RESP 18; O2SAT 92
[2023-03-06] MEDS: HYDROmorphon 0.2MG/ML PCA(*CRX 6 MG/30 ML PCA.VIAL IV CONT (08:08)
[2023-03-06] MEDS: DOCUSATE SODIUM 100 MG CAPSULE PO ×2 (08:10→20:01)
[2023-03-06] MEDS: GABAPENTIN 300 MG CAPSULE 600 MG PO ×2 (08:10→18:23)
[2023-03-06] MEDS: FAMOTIDINE 20 MG TABLET PO (08:10)
[2023-03-06] MEDS: oxyCODONE HCL (*CRX) 10 MG TAB SR 12HR PO ×2 (08:11→20:00)
--- NOTE | 2023-03-06 11:24 | WPDNEUROSGPN ---
Progress Note: A&P Assessment and Plan (1) Status post cervical arthrodesis: Code(s): Z98.1 - Arthrodesis status Status: Acute Plan s/p PCDF C3-7 on 03/01 Plan: -Stop DISABILITY SPECIALIST today -Increase flexeril to 10mg TID -Restart antibiotics given incisional drainage -Start lovenox -Will have him fitted for a Garfield J cervical collar to see if that helps with pain control -Out of bed to chair, mobilize today Subjective Date/time seen: 03/06/23 11:24 Interval history: Still having issues with pain which is limited to the back of the neck and can radiate to the mid back with mobilization. Denies radicular pain or paresthesias into arms. States that the sensation in his hands has returned almost to normal and that the strength is somewhat improved. Ambulated in the room this morning. Has not had a BM yet Review of Systems Review of Systems: All systems reviewed & are unremarkable except as noted in HPI and below Exam Narrative: AOx4 Improved strength in hand ssas developer, otherwise stable Sensation intact to light touch Incision with small amount of serous drainage on dressing. No active drainage. No erythema or edema Objective Data Vital Signs Vital Signs: Vital Signs - 24 hr 03/05/23 12:56 03/05/23 14:22 03/05/23 20:00 Temperature 98.2 F Pulse Rate 65 Respiratory Rate 16 20 Blood Pressure 114/55 L Pulse Oximetry 96 93 93 Oxygen Delivery Room Air 03/05/23 20:19 03/05/23 20:22 03/05/23 20:38 Temperature 96.9 F L Pulse Rate 110 H Respiratory Rate 18 18 18 Blood Pressure 130/64 Pulse Oximetry 92 92 92 Oxygen Delivery 03/06/23 05:18 03/06/23 06:06 03/06/23 08:08 Temperature 97.6 F Pulse Rate 72 Respiratory Rate 18 18 Blood Pressure 98/75 L Pulse Oximetry 92 92 Oxygen Delivery Intake/Output Intake/Output: Intake & Output 03/03/23 03/04/23 03/05/23 03/06/23 23:59 23:59 23:59 23:59 Intake Total 2110 1740 1280 1430 Output Total 2200 1975 300 Balance 0400 -803 -557 1130 Meds/Results Medications: Active Medications Generic Name Dose Route Start Last Admin Trade Name Freq PRN Reason Stop Dose Admin Acetaminophen 1,000 mg 03/01/23 18:00 03/06/23 05:36 Acetaminophen 500 Mg Tablet PO 1,000 mg Q6H BABAK Administration Al Hydrox/Mg Hydrox/Simethicone 20 ml 03/01/23 12:23 Mag Hydrox/Al Hydrox/Simeth 30 Ml Udc PO Q4H PRN Indigestion/Heartburn Albuterol 1 puff 03/01/23 12:26 Albuterol Sulfate (*Sp) Aerosol 1 Puff INHALATION QID PRN Shortness Of Breath Bisacodyl 10 mg 03/01/23 12:23 Bisacodyl 10 Mg Suppository RECTAL DAILY PRN Constipation Citalopram Hydrobromide 40 mg 03/01/23 21:00 03/05/23 21:00 Citalopram Hydrobromide 20 Mg Tablet PO 40 mg HS BABAK Administration Cyclobenzaprine HCl 10 mg 03/06/23 14:00 Cyclobenzaprine Hcl 10 Mg Tablet PO Q8HR [facility] Docusate Sodium 100 mg 03/01/23 21:00 03/06/23 08:10 Docusate Sodium 100 Mg Capsule PO 100 mg Q12HR BABAK Administration Enoxaparin Sodium 40 mg 03/06/23 12:00 Enoxaparin 40 Mg/0.4 Ml Syringe SUB-Q DAILY [facility] Famotidine 20 mg 03/02/23 09:00 03/06/23 08:10 Famotidine 20 Mg Tablet PO 20 mg DAILY BABAK Administration Gabapentin 600 mg 03/01/23 17:00 03/06/23 08:10 Gabapentin 300 Mg Capsule PO 600 mg BID BABAK Administration Cefazolin Sodium 2 gm in 50 mls @ 100 mls/hr 03/06/23 11:20 Ancef 2 Gm/D5w 50 Ml IVPB Q8H BABAK Loratadine 10 mg 03/02/23 09:00 Loratadine 10 Mg Tablet PO QAM PRN Allergic Symptoms Magnesium Hydroxide 30 ml 03/04/23 11:25 03/06/23 05:37 Magnesium Hydroxide Susp 30 Ml Udc PO 30 ml QAM PRN Administration Constipation Ondansetron HCl 4 mg 03/01/23 12:23 Ondansetron Inj 4 Mg/2 Ml Vial IV PUSH Q8H PRN Nausea And Vomiting Oxycodone HCl 10 mg 03/04/23 14:00 03/06/23 08:11 Oxycodone Hcl (*Crx) 10 Mg Tab Sr 12hr PO
[2023-03-06 11:58] LABS: Estimated CRCL calculation 86 ml/min; Estimated Glomerular Filt Rate > 60
[2023-03-06 12:00] VITALS: BP 112/55; PULSE 65; RESP 18; TEMP 36.7; O2SAT 96
[2023-03-06] MEDS: ENOXAPARIN 40 MG/0.4 ML SYRINGE SUB-Q (12:53)
[2023-03-06 14:00] VITALS: BP 111/40; PULSE 74; RESP 18; TEMP 36.6; O2SAT 93
[2023-03-06] MEDS: oxyCODONE HCL (*CRX) 5 MG TAB IR PO (14:20)
[2023-03-06] MEDS: CYCLOBENZAPRINE HCL 10 MG TABLET PO ×2 (14:21→21:14)
[2023-03-06] MEDS: oxyCODONE HCL (*CRX) 5 MG TAB IR 10 MG PO ×2 (18:24→22:27)
[2023-03-06] MEDS: ceFAZolin 2 GM/D5W 50 ML 2 GM/50 ML BAG IVPB (18:24)
[2023-03-06] MEDS: CITALOPRAM HYDROBROMIDE 20 MG TABLET 40 MG PO (20:00)
[2023-03-06] MEDS: ROSUVASTATIN 5 MG TABLET PO (20:01)
[2023-03-06 20:27] VITALS: BP 120/49; PULSE 68; RESP 16; TEMP 36.2; O2SAT 100
[2023-03-07] MEDS: ceFAZolin 2 GM/D5W 50 ML 2 GM/50 ML BAG IVPB ×3 (03:40→16:28)
[2023-03-07] MEDS: ACETAMINOPHEN 500 MG TABLET 1000 MG PO ×4 (03:40→17:14)
[2023-03-07] MEDS: oxyCODONE HCL (*CRX) 5 MG TAB IR 10 MG PO ×2 (03:40→11:54)
[2023-03-07 05:05] VITALS: BP 139/53; PULSE 64; RESP 16; TEMP 36.2; O2SAT 96
[2023-03-07] MEDS: CYCLOBENZAPRINE HCL 10 MG TABLET PO ×3 (06:16→21:14)
[2023-03-07] MEDS: FAMOTIDINE 20 MG TABLET PO (08:17)
[2023-03-07] MEDS: ENOXAPARIN 40 MG/0.4 ML SYRINGE SUB-Q (08:17)
[2023-03-07] MEDS: oxyCODONE HCL (*CRX) 10 MG TAB SR 12HR PO ×2 (08:17→20:50)
[2023-03-07] MEDS: DOCUSATE SODIUM 100 MG CAPSULE PO ×2 (08:17→20:51)
[2023-03-07] MEDS: GABAPENTIN 300 MG CAPSULE 600 MG PO ×2 (08:17→16:27)
--- NOTE | 2023-03-07 10:25 | PCOTNOTE ---
Attempted OT treatment this A.M. Patient refused any activity, stating he is in too much pain. He verbalized he attempted PT and it didn't work . Will try back this afternoon.
--- NOTE | 2023-03-07 13:50 | PCOTNOTE ---
Attempted this afternoon. Patient verbalized, in severe, intolerable pain'. Patient also refuses to re-position in bed
[2023-03-07 14:00] VITALS: BP 111/47; PULSE 68; RESP 14; TEMP 35.8; O2SAT 94
--- NOTE | 2023-03-07 15:55 | PCCCNOTE ---
On 03/07/23, the student, [Nadja Wilburn], provided care and completed [facility] documentation on this patient. I have reviewed the student's documentation and agree with the findings.
[2023-03-07] MEDS: oxyCODONE HCL (*CRX) 5 MG TAB IR PO (16:28)
[2023-03-07] MEDS: CITALOPRAM HYDROBROMIDE 20 MG TABLET 40 MG PO (20:50)
[2023-03-07] MEDS: ROSUVASTATIN 5 MG TABLET PO (20:51)
[2023-03-07 21:12] VITALS: BP 124/58; PULSE 64; RESP 14; TEMP 36.6; O2SAT 93
[2023-03-08] MEDS: ceFAZolin 2 GM/D5W 50 ML 2 GM/50 ML BAG IVPB ×2 (01:54→08:58)
[2023-03-08] MEDS: ACETAMINOPHEN 500 MG TABLET 1000 MG PO ×3 (01:54→13:09)
[2023-03-08 06:00] VITALS: BP 118/71; PULSE 87; RESP 14; TEMP 36.4; O2SAT 96
[2023-03-08] MEDS: CYCLOBENZAPRINE HCL 10 MG TABLET PO ×2 (06:15→13:08)
--- NOTE | 2023-03-08 08:10 | WPDNEUROSGPN ---
Progress Note: A&P Assessment and Plan (1) Status post cervical arthrodesis: Code(s): Z98.1 - Arthrodesis status Status: Acute (2) Cervical myelopathy: Code(s): G95.9 - Disease of spinal cord, unspecified Status: Acute Plan Carlos is making progress and hopefully will be able to be discharged soon. He is on antibiotics and is weaning off of his IV pain medication. Subjective Date/time seen: 03/07/23 08:10 Interval history: Carlos is postop day 2 status post posterior cervical laminectomy and fusion. He continues to improve slightly. This is both with his pain control and activity. He is not having new bowel or bladder other constitutional problems. He does not have new neurologic issues in his extremities. Exam Narrative: Patient has reduced taco maker strength right greater than left otherwise normal strength in the bilateral upper extremities. Sensation is intact to light touch throughout the upper extremities. The wound is clean and appears dry today. Objective Data Vital Signs Vital Signs: Vital Signs - 24 hr 03/07/23 14:00 03/07/23 21:12 03/07/23 20:00 Temperature 96.5 F L 97.8 F Pulse Rate 68 64 Respiratory Rate 14 14 Blood Pressure 111/47 L 124/58 L Pulse Oximetry 94 93 Oxygen Delivery Room Air 03/08/23 06:00 Temperature 97.5 F L Pulse Rate 87 Respiratory Rate 14 Blood Pressure 118/71 Pulse Oximetry 96 Oxygen Delivery Intake/Output Intake/Output: Intake & Output 03/05/23 03/06/23 03/07/23 03/08/23 23:59 23:59 23:59 23:59 Intake Total 1280 1970 750 750 Output Total 1975 1600 2900 1900 Balance -695 370 -2150 -1150 Meds/Results Medications: Active Medications Generic Name Dose Route Start Last Admin Trade Name Freq PRN Reason Stop Dose Admin Acetaminophen 1,000 mg 03/01/23 18:00 03/08/23 06:15 Acetaminophen 500 Mg Tablet PO 1,000 mg Q6H BABAK Administration Al Hydrox/Mg Hydrox/Simethicone 20 ml 03/01/23 12:23 Mag Hydrox/Al Hydrox/Simeth 30 Ml Udc PO Q4H PRN Indigestion/Heartburn Albuterol 1 puff 03/01/23 12:26 Albuterol Sulfate (*Sp) Aerosol 1 Puff INHALATION QID PRN Shortness Of Breath Bisacodyl 10 mg 03/01/23 12:23 Bisacodyl 10 Mg Suppository RECTAL DAILY PRN Constipation Citalopram Hydrobromide 40 mg 03/01/23 21:00 03/07/23 20:50 Citalopram Hydrobromide 20 Mg Tablet PO 40 mg HS BABAK Administration Cyclobenzaprine HCl 10 mg 03/06/23 14:00 03/08/23 06:15 Cyclobenzaprine Hcl 10 Mg Tablet PO 10 mg Q8HR BABAK Administration Docusate Sodium 100 mg 03/01/23 21:00 03/07/23 20:51 Docusate Sodium 100 Mg Capsule PO 100 mg Q12HR BABAK Administration Enoxaparin Sodium 40 mg 03/06/23 12:00 03/07/23 08:17 Enoxaparin 40 Mg/0.4 Ml Syringe SUB-Q 40 mg DAILY BABAK Administration Famotidine 20 mg 03/02/23 09:00 03/07/23 08:17 Famotidine 20 Mg Tablet PO 20 mg DAILY BABAK Administration Gabapentin 600 mg 03/01/23 17:00 03/07/23 16:27 Gabapentin 300 Mg Capsule PO 600 mg BID BABAK Administration Cefazolin Sodium 2 gm in 50 mls @ 100 mls/hr 03/06/23 17:00 03/08/23 01:54 Ancef 2 Gm/D5w 50 Ml IVPB 100 mls/hr Q8H BABAK Administration Loratadine 10 mg 03/02/23 09:00 Loratadine 10 Mg Tablet PO QAM PRN Allergic Symptoms Magnesium Hydroxide 30 ml 03/04/23 11:25 03/06/23 05:37 Magnesium Hydroxide Susp 30 Ml Udc PO 30 ml QAM PRN Administration Constipation Ondansetron HCl 4 mg 03/01/23 12:23 Ondansetron Inj 4 Mg/2 Ml Vial IV PUSH Q8H PRN Nausea And Vomiting Oxycodone HCl 10 mg 03/04/23 14:00 03/07/23 20:50 Oxycodone Hcl (*Crx) 10 Mg Tab Sr 12hr PO 10 mg Q12HR BABAK Administration Oxycodone HCl 5 mg 03/05/23 11:06 03/07/23 16:28 Oxycodone Hcl (*Crx) 5 Mg Tab Ir PO 5 mg Q4H PRN Administration Pain Rated 4-6 Oxycodone HCl 10 mg 03/06/23 16:14 02/22
[2023-03-08] MEDS: FAMOTIDINE 20 MG TABLET PO (08:59)
[2023-03-08] MEDS: BISACODYL 10 MG SUPPOSITORY RECTAL (08:59)
[2023-03-08] MEDS: oxyCODONE HCL (*CRX) 5 MG TAB IR 10 MG PO ×2 (08:59→13:07)
[2023-03-08] MEDS: DOCUSATE SODIUM 100 MG CAPSULE PO (08:59)
[2023-03-08] MEDS: GABAPENTIN 300 MG CAPSULE 600 MG PO (08:59)
[2023-03-08] MEDS: ENOXAPARIN 40 MG/0.4 ML SYRINGE SUB-Q (08:59)
[2023-03-08] MEDS: oxyCODONE HCL (*CRX) 10 MG TAB SR 12HR PO (09:00)
--- NOTE | 2023-03-08 10:31 | WPDNEUROSGPN ---
Progress Note: A&P Assessment and Plan (1) Status post cervical arthrodesis: Code(s): Z98.1 - Arthrodesis status Status: Acute (2) Cervical myelopathy: Code(s): G95.9 - Disease of spinal cord, unspecified Status: Acute Plan s/p PCDF C3-7 on 03/01 Plan: -I have encouraged him again to be sitting up in a chair and working with therapy more aggressively -He will work with therapy on stairs today -Anticipate discharge home later today Subjective Date/time seen: 03/08/23 10:31 Interval history: More comfortable today. Has not had a BM but is passing gas. Denies nausea/vomiting. Hand sensation and strength is improving. Per therapy, he is requiring minimal assistance to ambulate but refuses to ambulate past the door. Refusing to get up to restroom to void or to sit in chair Review of Systems Review of Systems: All systems reviewed & are unremarkable except as noted in HPI and below Exam Narrative: AOx4 Improving strength in bilateral hand non destructive testing technician, slightly weaker on right Sensation intact to light touch Otherwise good strength in arms and legs Incision c/d/i without drainage Objective Data Vital Signs Vital Signs: Vital Signs - 24 hr 03/07/23 14:00 03/07/23 21:12 03/07/23 20:00 Temperature 96.5 F L 97.8 F Pulse Rate 68 64 Respiratory Rate 14 14 Blood Pressure 111/47 L 124/58 L Pulse Oximetry 94 93 Oxygen Delivery Room Air 03/08/23 06:00 Temperature 97.5 F L Pulse Rate 87 Respiratory Rate 14 Blood Pressure 118/71 Pulse Oximetry 96 Oxygen Delivery Intake/Output Intake/Output: Intake & Output 03/05/23 03/06/23 03/07/23 03/08/23 23:59 23:59 23:59 23:59 Intake Total 1280 1970 750 920 Output Total 1974 1600 2900 3000 Balance -695 953 -3496 -1787 Meds/Results Medications: Active Medications Generic Name Dose Route Start Last Admin Trade Name Freq PRN Reason Stop Dose Admin Acetaminophen 1,000 mg 03/01/23 18:00 03/08/23 06:15 Acetaminophen 500 Mg Tablet PO 1,000 mg Q6H BABAK Administration Al Hydrox/Mg Hydrox/Simethicone 20 ml 11/08/23 12:23 Mag Hydrox/Al Hydrox/Simeth 30 Ml Udc PO Q4H PRN Indigestion/Heartburn Albuterol 1 puff 03/01/23 12:26 Albuterol Sulfate (*Sp) Aerosol 1 Puff INHALATION QID PRN Shortness Of Breath Bisacodyl 10 mg 03/01/23 12:23 03/08/23 08:59 Bisacodyl 10 Mg Suppository RECTAL 10 mg DAILY PRN Administration Constipation Citalopram Hydrobromide 40 mg 03/01/23 21:00 03/07/23 20:50 Citalopram Hydrobromide 20 Mg Tablet PO 40 mg HS BABAK Administration Cyclobenzaprine HCl 10 mg 03/06/23 14:00 03/08/23 06:15 Cyclobenzaprine Hcl 10 Mg Tablet PO 10 mg Q8HR BABAK Administration Docusate Sodium 100 mg 03/01/23 21:00 03/08/23 08:59 Docusate Sodium 100 Mg Capsule PO 100 mg Q12HR BABAK Administration Enoxaparin Sodium 40 mg 03/06/23 12:00 03/08/23 08:59 Enoxaparin 40 Mg/0.4 Ml Syringe SUB-Q 40 mg DAILY BABAK Administration Famotidine 20 mg 03/02/23 09:00 03/08/23 08:59 Famotidine 20 Mg Tablet PO 20 mg DAILY BABAK Administration Gabapentin 600 mg 03/01/23 17:00 03/08/23 08:59 Gabapentin 300 Mg Capsule PO 600 mg BID BABAK Administration Cefazolin Sodium 2 gm in 50 mls @ 100 mls/hr 03/06/23 17:00 03/08/23 08:58 Ancef 2 Gm/D5w 50 Ml IVPB 100 mls/hr Q8H BABAK Administration Loratadine 10 mg 03/02/23 09:00 Loratadine 10 Mg Tablet PO QAM PRN Allergic Symptoms Magnesium Hydroxide 30 ml 03/04/23 11:25 03/06/23 05:37 Magnesium Hydroxide Susp 30 Ml Udc PO 30 ml QAM PRN Administration Constipation Ondansetron HCl 4 mg 03/01/23 12:23 Ondansetron Inj 4 Mg/2 Ml Vial IV PUSH Q8H PRN Nausea And Vomiting Oxycodone HCl 10 mg 03/04/23 14:00 03/08/23 09:00 Oxycodone Hcl (*Crx) 10 Mg Tab Sr 12hr PO 10 mg Q12HR BABAK Administration Oxycodone HCl 5 mg 03/05/23 11:06 03/07/
--- NOTE | 2023-03-08 11:28 | PCNWS ---
Weekly nutritional screen. Patient is tolerating current diet with adequate intake. No weight loss reported. No nutritional needs at this time. Pt says he is going home today.
[2023-03-08 13:53] VITALS: BP 121/64; PULSE 82; RESP 18; TEMP 36.2; O2SAT 95
--- NOTE | 2023-03-11 10:38 | PM.DS ---
DS: Admitting Diagnosis Discharge Date 03/08/23 Admitting Diagnosis Cervical myelopathy DS: Discharge Diagnosis Discharge Diagnosis (1) Status post cervical arthrodesis: Code(s): Z98.1 - Arthrodesis status Status: Acute (2) Cervical myelopathy: Code(s): G95.9 - Disease of spinal cord, unspecified Status: Acute DS: Summary Hospital Course Hospital Course: Mr. Blue presented for surgery on March 01; please see the op note for more details. He was transferred to the floor after surgery. His hemovac drain was removed on POD1. He worked with therapy who cleared him for discharge. He had fairly significant pain issues for which we made multiple medication adjustments including a ROSE GRADER temporarily. He was fitted for a hard cervical collar to assist with comfort. The therapists and nursing staff had difficulty motivating him to mobilize to a chair, the restroom, or to walk in the halls due to pain. By POD7, his pain was controlled enough to discharge home. 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, slightly weaker on right Sensation intact to light touch Otherwise good strength in arms and legs Incision c/d/i without drainage Discharge Plan Discharge Attending physician on discharge: Coty Rea Consulting providers: Sally David; Ramos Mcarthur; Rafael Stearns; Gualberto Aceves; Jimmy Bishop; Florentino Gregg Discharging Clinician: Coty Rea Patient Disposition: Home, Self-Care Activity: other - see discharge instructions Diet: as tolerated Wound Care Instructions: follow printed instructions Discharge Instructions: Discharge Instructions Procedure: Posterior cervical decompression and fusion Your doctor removed bone and ligament to decompress your spinal cord and nerve roots, and then placed hardware to stabilize the spine. Here are some instructions to follow upon discharge from the hospital to help in your recovery. Activity: You must be sitting up in a chair during the day and walking on an hourly basis at home. Do not sit or lie in bed longer than an hour during the day. This is very important in your neurologic recovery but also to prevent complications like pneumonia and blood clots. Unless released by your doctor, you should not return to work. You should rest at home and let your body heal. Taking short walks is encouraged, but avoid strenuous exercise. Do not jog, run, lift weights, bicycle, or participate in other exercises unless specifically allowed by your doctor. Most importantly, avoid lifting objects heavier than a telephone book or a carton of milk as this places a strain on your neck. If possible, avoid household activities that involve lifting such as laundry, grocery shopping, or childcare. Try to arrange for help from friends and family for these activities while your neck heals. You should not drive for 7-10 days, until you are both off of narcotics and your neck has loosened up enough to safely check your blind spots. You may shower starting on post-operative day 2 (Monday, March 03). After showering, lightly dab your wound dry. Do not take baths or sit in a hot tub or pool until approved by your doctor. You may get your incision wet with soap and water, but do not submerge the incision under water. DO NOT SMOKE TOBACCO. Smoking has been proven to interfere with the normal healing of the bones in your neck. Smoking will dramatically reduce the success rate of your surgery. Diet: You can return to your usual diet, unless instructed otherwise by your doctor. Medications: You should resume taking all of your normal medications unless instructed otherwise by your doctor. You may take Tylenol 1000mg every 6 hours as needed for pain. If your pain is still uncontrolled after Tylenol, then take oxycodo
== END 2023-03-08 15:45 | disposition home or self-care (01) | DRG 30 ==
LOC: ANH3MEDSUR 03-02 17:40
PROVIDERS: Anesthesiology; Admitting Provider Neurological Surgery; PCP Family Medicine; Visit Provider Neurological Surgery
PROC: 0RG2071 Fusion of 2 or more Cervical Vertebral Joints with Autologous Tissue Substitute, Posterior Approach, Posterior Column, Open Approach (ICD-10-PCS; principal; 2023-03-01 07:30)
DX: G95.9 Disease of spinal cord, unspecified (principal); M48.02 Spinal stenosis, cervical region; M43.12 Spondylolisthesis, cervical region; E78.5 Hyperlipidemia, unspecified; Z87.891 Personal history of nicotine dependence; Z79.82 Long term (current) use of aspirin
CPT/HCPCS: 36415; 36430; 80048; 81001; 82565; 85014; 85018; 85027; 85610; 85730; 86850; 86900; 86901; 86923; 97116; 97161; 97165; 97530; 97535; 99199; A9270; C1713; J0690; J1100; J1170; J1650; J2250; J2371; J2704; J3010; J3370; J7030; J7050; J7120; P9016

== ENCOUNTER 2023-04-11 12:13 | Outpatient (CLI) | payer MEDICARE, SELFPAY ==
--- NOTE | ~2023-04-11 | XR_ITS ---
Cervical Spine: AP, lateral, open-mouth views Clinical History: Arthrodesis Findings: The normal lordotic curve is maintained. There is posterior fusion hardware extending from C3 through C7, with bilateral rods and transpedicular screws present. There is moderate degenerative disc narrowing at C2-C3, C5-C6, and C6-C7. No fracture or sublocation evident. Pre-vertebral soft tis sues are unremarkable. Impression: Posterior fusion changes from C3 through C7, as detailed above. Degenerative changes, as above. Reviewed, dictated and finalized at location [facility] Impression: Posterior fusion changes from C3 through C7, as detailed above. Degenerative changes, as above.
== END 2023-04-11 12:14 | disposition home or self-care (01) ==
PROVIDERS: PCP Family Medicine; Visit Provider Physician Assistant
DX: Z98.1 Arthrodesis status (principal)
CPT/HCPCS: 72040

== ENCOUNTER 2023-07-12 10:20 | Outpatient (CLI) | payer MEDICARE, SELFPAY ==
--- NOTE | ~2023-07-12 | XR_ITS ---
Cervical Spine: AP, lateral, open-mouth views Clinical History: Arthrodesis COMPARISON: 04/11/2023 Findings: Stable posterior fusion from C3 through C7. Stable degenerative disc changes, most notably at C5-C6 and C6-C7. No fracture or subluxation evident. Pre-vertebral soft tissues are unremarkable. Impression: Stable posterior fusion changes from C3 through C7. Reviewed, dictated and finalized at [facility]. Impression: Stable posterior fusion changes from C3 through C7.
== END 2023-07-12 10:21 | disposition home or self-care (01) ==
LOC: ANHIMG 10:23
PROVIDERS: PCP Family Medicine; Visit Provider Neurological Surgery
DX: Z98.1 Arthrodesis status (principal)
CPT/HCPCS: 72040

== ENCOUNTER 2023-12-01 10:12 | Outpatient (CLI) | payer MEDICARE, SELFPAY ==
[2023-12-01 13:50] LABS: Basophils Absolute Auto 0.1 K/mm3 (0.0-0.1); Basophils Percent Auto 1.3 % (0.2-1.2); Eosinophils Absolute Auto 0.2 K/mm3 (0-0.3); Eosinophils Percent Auto 3.5 % (0-4.4); Immature Granulocyte Absolute 0.05 K/mm3 (0.00-0.031); Immature Granulocyte Percent A 0.8 % (0-0.5); Lymphocytes Absolute Auto 2.18 K/mm3 (0.9-3.2); Lymphocytes Percent Auto 36.5 % (18.3-44.2); Mean Corpuscular HGB Conc 33.3 g/dl (32-36); Mean Corpuscular Hemoglobin 35.5 pg (26-34); Mean Corpuscular Volume 106.5 fl (80-100); Mean Platelet Volume 10.8 fl (7.4-10.4); Monocytes Absolute Auto 0.9 K/mm3 (0.1-0.6); Monocytes Percent Auto 15.4 % (2.6-8.5); Neutrophils Absolute Auto 2.5 K/mm3 (1.3-6.7); Neutrophils Percent Auto 42.5 % (45.5-73.1); Platelet Count Result 281 k/mm3 (150-375); Red Blood Count 3.38 M/mm3 (4.6-6.20); Red Cell Distribution Width 15.7 % (11.5-14.5)
[2023-12-01 21:38] LABS: Alanine Aminotransferase 9 U/L (6-50); Albumin Level 4.1 g/dL (3.5-5.1); Alkaline Phosphatase 61 U/L (38-126); Anion Gap 7 mmol/L (4-12); Aspartate Amino Transferase 46 U/L (17-59); Bilirubin,Total 0.6 mg/dL (0.2-1.3); Blood Urea Nitrogen 16 mg/dL (9-20); Calcium 9.2 mg/dL (8.4-10.2); Carbon Dioxide 28 mmol/L (22-30); Chloride 97 mmol/L (98-107); Cholesterol 204 mg/dL (0-200); Estimated Glomerular Filt Rate > 60; Glucose 93 mg/dL (65-110); HDL Direct 37 mg/dL; Potassium 4.5 mmol/L (3.4-5.0); Sodium 132 mmol/L (137-145); Triglycerides 164 mg/dL (<150)
[2023-12-01 22:14] LABS: LDL Cholesterol Direct 119 mg/dL
[2023-12-01 23:05] LABS: Prostate Specific Antigen 1.2 ng/mL (< OR = 4.0)
== END 2023-12-01 10:13 | disposition home or self-care (01) ==
LOC: ANHGOSHLAB 10:13
PROVIDERS: PCP Internal Medicine; Visit Provider Nurse Practitioner
DX: Z12.5 Encounter for screening for malignant neoplasm of prostate (principal); E78.5 Hyperlipidemia, unspecified; Z68.29 Body mass index [BMI] 29.0-29.9, adult; Z13.220 Encounter for screening for lipoid disorders; Z13.29 Encounter for screening for other suspected endocrine disorder
CPT/HCPCS: 36415; 80053; 80061; 84153; 85025; G0103

== ENCOUNTER 2024-01-10 12:12 | Outpatient (CLI) | payer MEDICARE, SELFPAY ==
--- NOTE | ~2024-01-10 | XR_ITS ---
[id number] Ordering provider: Coty Rea MD History: . Z98.1 - Arthrodesis status . Comparison: None. FINDINGS: VERTEBRAL BODIES: Normal height and alignment. No visible fracture or subluxation. The dens is intact . Postoperative changes extending from C3 down to C7. DISK SPACES: Narrowing of the disc spaces C5-C6 and C6-C7. Multilevel uncovertebral joint osteoarthri tic changes. PARASPINOUS SOFT TISSUES: No prevertebral soft tissue swelling. IMPRESSION: No acute osseous abnormality cervical spine. Postoperative changes. Multilevel degenerative disc disease. Reviewed, dictated and finalized at location A.
== END 2024-01-10 12:13 | disposition home or self-care (01) ==
PROVIDERS: PCP Nurse Practitioner; Visit Provider Neurological Surgery
DX: Z98.1 Arthrodesis status (principal); M50.30 Other cervical disc degeneration, unspecified cervical region
CPT/HCPCS: 72040

== ENCOUNTER 2024-01-18 07:00 | Outpatient (NON) | payer MEDICARE, SELFPAY | END 2024-01-18 07:01 | disposition home or self-care (01) | LOC: ANHLAB 01-19 09:54 | PROVIDERS: PCP Nurse Practitioner; Visit Provider Internal Medicine Gastroenterology | DX: K63.5 Polyp of colon (principal) | CPT/HCPCS: 88305 ==

== ENCOUNTER 2024-01-18 08:23 | Day surgery (SDC) | payer MEDICARE, SELFPAY ==
[2023-10-25 14:34] VITALS: BMI 29.2
[2023-10-30 10:52] VITALS: BMI 29.4
--- NOTE | 2024-01-18 08:37 | PM.HPGS ---
History of Present Illness History of Present Illness Consent: Risks, benefits, and alternatives have been discussed and questions answered. Patient agrees to proceed with procedure. Chief complaint: Neoplasm Screening Narrative: Carlos Blue Jr. is a 68 year old male presents for screening colonoscopy. Patient has current weight appetite is normal. Patient denies abdominal pain. He has had no bleeding. Family history is noncontributory Review of Systems Review of Systems: All systems reviewed & are unremarkable except as noted in HPI and below PMFSH Past Medical History Medical History BMI 29.0-29.9,adult BMI 30.0-30.9,adult Hernia Surgical History Surgical History H/O rotator cuff surgery History of ankle surgery Family History Family History Father Heart disease Mother Sibling Hypertension Heart disease Breast cancer Brain tumor Social History Social History (Updated 01/11/24 @ 09:33 by Carmen Abarca CMA) Smoking packs per day: 1.5 Smoking cigarettes per day: 30.0 Years smoked: 50 Smoking pack-years: 75.00 Smoking status: Current every day smoker Tobacco type: cigarettes Second hand tobacco smoke exposure: Yes Alcohol intake: current Drinks per week: 10 Alcohol use details: beer Substance use: never Substance use type: does not use Do You Feel Safe in your Home?: Yes Lack of Transportation: No Lack of Food: Never True Current Housing: I Have Housing Concerned About Future Housing: No Difficulty Paying Gas/Electric Bills: No Difficulty Paying for Meds: No Currently Unemployed: No Education: High School Diploma/GED Difficulty w/ Childcare or Family Care: No Living arrangements: alone Occupation/Education: retired Additional occupation/education comments: [employer] Gender identity (if verbalized by the patient): Male Spiritual care concerns: No Meds Home Medications and Allergies Home Medications Medication Instructions Recorded Confirmed Type aspirin 81 mg tablet,delayed 81 mg PO DAILY 01/06/23 01/03/24 History release (Adult Low Dose Aspirin) albuterol sulfate 90 mcg/actuation 1 inh inhalation QID PRN Shortness 02/24/23 01/03/24 History aerosol inhaler Of Breath gabapentin 600 mg tablet 600 mg PO BID 02/24/23 01/03/24 History clonazepam 0.5 mg tablet 0.5 mg PO BID PRN anxiety #60 tabs 10/23/23 01/03/24 Rx sodium,potassium,mag sulfates 17.5 See Rx Instructions PO .COMPLEX 10/25/23 12/01/23 Rx gram-3.13 gram-1.6 gram oral soln #354 mL (Suprep Bowel Prep Kit) citalopram 40 mg tablet 40 mg PO HS #90 tabs 12/11/23 01/03/24 Rx triamcinolone acetonide 0.1 % 1 applic topical BID PRN rash #80 12/26/23 01/03/24 Rx topical cream grams Allergies Allergy/AdvReac Type Severity Reaction Status Date / Time No Known Allergies Allergy Unknown Verified 01/11/24 09:30 Exam Narrative: Physical exam reveals patient to be alert. Vital signs stable. HEENT unremarkable. Patient is anicteric. Lungs are clear to auscultation and percussion. Heart is without murmur or extra sounds. Abdomen bowel sounds are present soft nontender with no organomegaly. Digital external rectal exam normal. Assessment and Plan Assessment and plan (1) Screening for colon cancer: Code(s): Z12.11 - Encounter for screening for malignant neoplasm of colon Status: Acute Assessment and Plan: Presents today for screening colonoscopy. Further recommendations may be given after endoscopy.
[2024-01-18 08:43] VITALS: BP 125/75; PULSE 71; RESP 18; TEMP 36.7; O2SAT 100; BMI 28.9
--- NOTE | 2024-01-18 08:51 | WPDANESEPPF ---
Anes - Initial Pre Proc Eval Procedure: Operation Date: 01/18/24 09:30 Proposed Procedures p Screening Colonoscopy - Emigdio Diaz MD Date/Time: 01/18/24 08:51 Surgeon: Emigdio Diaz MD Pre Op Diagnosis: Neoplasm Screening Patient Data Age: 68 Gender: M Height: 1.73 m Weight: 87.8 kg Allergies Allergy/AdvReac Type Severity Reaction Status Date / Time No Known Allergies Allergy Unknown Verified 01/18/24 08:41 Home Medications Medication Instructions Recorded Confirmed Type aspirin 81 mg tablet,delayed 81 mg PO DAILY 01/06/23 01/18/24 History release (Adult Low Dose Aspirin) albuterol sulfate 90 mcg/actuation 1 inh inhalation QID PRN Shortness 02/24/23 01/18/24 History aerosol inhaler Of Breath gabapentin 600 mg tablet 600 mg PO BID 02/24/23 01/18/24 History clonazepam 0.5 mg tablet 0.5 mg PO BID PRN anxiety #60 tabs 10/23/23 01/18/24 Rx sodium,potassium,mag sulfates 17.5 See Rx Instructions PO .COMPLEX 10/25/23 01/18/24 Rx gram-3.13 gram-1.6 gram oral soln #354 mL (Suprep Bowel Prep Kit) citalopram 40 mg tablet 40 mg PO HS #90 tabs 12/11/23 01/18/24 Rx triamcinolone acetonide 0.1 % 1 applic topical BID PRN rash #80 12/26/23 01/18/24 Rx topical cream grams Patient hx anesthesia problems: none Family hx anesthesia problems: none Results Review: All pre-operative results and documents have been reviewed as part of the pre-operative evaluation. [facility] Past Medical History Medical History (Updated 01/18/24 @ 08:52 by Blanco Nieto MD) BMI 29.0-29.9,adult BMI 30.0-30.9,adult COPD (chronic obstructive pulmonary disease) Hernia Hyperlipidemia Surgical History Surgical History (Updated 01/18/24 @ 08:52 by Blanco Nieto MD) H/O rotator cuff surgery History of ankle surgery Status post cervical arthrodesis Family History Family History Father Heart disease Mother Sibling Hypertension Heart disease Breast cancer Brain tumor Social History Social History Smoking packs per day: 1.5 Smoking cigarettes per day: 30.0 Years smoked: 50 Smoking pack-years: 75.00 Smoking status: Current every day smoker Tobacco type: cigarettes Second hand tobacco smoke exposure: Yes Alcohol intake: current Drinks per week: 10 Alcohol use details: beer Substance use: never Substance use type: does not use Do You Feel Safe in your Home?: Yes Lack of Transportation: No Lack of Food: Never True Current Housing: I Have Housing Concerned About Future Housing: No Difficulty Paying Gas/Electric Bills: No Difficulty Paying for Meds: No Currently Unemployed: No Education: High School Diploma/GED Difficulty w/ Childcare or Family Care: No Living arrangements: alone Occupation/Education: retired Additional occupation/education comments: [employer] Gender identity (if verbalized by the patient): Male Spiritual care concerns: No Anes - Eval Final PreProcedure Day of Procedure 01/18/24 08:51 Patient weight: obese Heart: regular rate and rhythm Lungs: decreased breath sounds Airway: Mallampati scale class II and special considerations poor extension Neurological: alert and oriented Last oral intake: >/= 8 hours ASA classification: III Emergent: no Anesthetic plan: proceed Anesthesia type and monitoring: general GIVS and standard monitoring Results Review: All pre-operative results and documents have been reviewed as part of the pre-operative evaluation. Informed Consent: The patient's anesthetic plan and its attendant risks and benefits were discussed with the patient/family/POA. Questions were solicited and answers provided to the satisfaction of the patient/family/POA.
[2024-01-18] MEDS: LACTATED RINGERS 1,000 ML 150 ML IV CONT (08:54)
[2024-01-18 09:36] VITALS: BP 85/62; PULSE 69; RESP 20; O2SAT 97
[2024-01-18 09:46] VITALS: BP 104/51; PULSE 62; RESP 16; O2SAT 95
[2024-01-18 09:56] VITALS: BP 111/77; PULSE 65; RESP 16; O2SAT 100
[2024-01-18 10:06] VITALS: BP 130/79; PULSE 63; RESP 15; O2SAT 100
--- NOTE | 2024-01-18 13:02 | WPDANESPN ---
Anes - Prog Note Post-Op Date/Time: 01/18/24 13:02 Cardiovascular status: normal Respiratory status: normal Airway patency: baseline Mental status: baseline Post-Op hydration status: normal Vital Signs: Last Vital Signs Temp 36.7 C 01/18/24 08:43 Pulse 63 01/18/24 10:06 Resp 15 01/18/24 10:06 BP 130/79 01/18/24 10:06 Pulse Ox 100 01/18/24 10:06 O2 Del Method Room Air 01/18/24 10:06 Pain Score (VAS): 0 I/O: Intake & Output 01/17/24 01/18/24 01/18/24 23:59 07:59 15:59 Intake Total 600 Balance 600 Patient Feedback: Patient satisfied with anesthetic care.
== END 2024-01-18 10:31 | disposition home or self-care (01) ==
PROVIDERS: PCP Nurse Practitioner; Visit Provider Internal Medicine Gastroenterology
PROC: 0DJD8ZZ Inspection of Lower Intestinal Tract, Via Natural or Artificial Opening Endoscopic (ICD-10-PCS; CPT 45378; principal; 2024-01-18 09:30)
DX: Z12.11 Encounter for screening for malignant neoplasm of colon (principal); D12.2 Benign neoplasm of ascending colon; D12.4 Benign neoplasm of descending colon; D12.5 Benign neoplasm of sigmoid colon; D12.8 Benign neoplasm of rectum
CPT/HCPCS: 45385

== ENCOUNTER 2024-01-22 10:10 | Outpatient (CLI) | payer MEDICARE, SELFPAY ==
--- NOTE | ~2024-01-22 | XR_ITS ---
AP and lateral views of the bilateral hips Clinical history: Pain Findings: No acute fracture or dislocation is seen. Osseous alignment is anatomic. Bilateral hip and SI joint spaces are preserved. Soft tissues are unremarkable. Impression: No significant abnormality is seen. Reviewed, dictated and finalized at location . Impression: No significant abnormality is seen.
--- NOTE | ~2024-01-22 | XR_ITS ---
Lumbosacral Spine: AP and lateral views Clinical History: Pain Findings: The normal lordotic curve is maintained. There is a 3 mm retrolisthesis of L3 over L4. Ther e is minimal grade 1 mm retrolisthesis of L1 over L2. There is severe degenerative change from L3 thr ough S1. There is severe facet arthropathy throughout the lumbar spine, especially at L4-L5 and L5-S1 . No instability evident on flexion or extension.. The sacroiliac joints are normally outlined. Impression: 3 mm retrolisthesis of L3 over L4. Minimal grade 1 retrolisthesis of L1 over L2. No instability evident. Severe degenerative spondylosis. Reviewed, dictated and finalized at location M. Impression: 3 mm retrolisthesis of L3 over L4. Minimal grade 1 retrolisthesis of L1 over L2. No instability evident. Severe degenerative spondylosis.
--- NOTE | ~2024-01-22 | CT_ITS ---
CT cervical spine wo con Ordering provider: Coty Rea MD History: . Disease of spinal cord, unspecified . Comparison: None. Technique: CT of the cervical spine was performed without contrast. Sagittal and coronal reformatted images were also obtained and reviewed. Automated exposure control and iterative reconstruction tim hnique were employed. The dose-length product was 303.47 mGy-cm. FINDINGS: VERTEBRAE: No subluxation or acute fracture. The occipital condyles are intact. Postoperative change s are seen at the levels from C3 to C7. No hardware failure seen. Fusion of the occipital condyles wi th C1 is noted bilaterally. Posterior disc area fusion is seen at the level of C2-C3. DISC SPACES: Narrowing of the disc C2-C3, C5-C6 and C6-C7. Multilevel facet joint disease. Multilevel uncovertebral joint osteoarthritic changes. Narrowing of the left foramina at the level of C2-C3, C3-C4. Narrowing of the right foramen at the level of the fourth C5. Bilateral narrowing of the foramina at the level of C5-C6 and C6-C7. PARASPINOUS SOFT TISSUES: Bilateral carotid calcification. IMPRESSION: No acute osseous abnormality cervical spine. Multilevel degenerative disc disease. Reviewed, dictated and finalized at location A.
== END 2024-01-22 10:11 | disposition home or self-care (01) ==
LOC: MICIMG 10:12
PROVIDERS: PCP Nurse Practitioner; Visit Provider Neurological Surgery
DX: M25.551 Pain in right hip (principal); G95.9 Disease of spinal cord, unspecified; M50.30 Other cervical disc degeneration, unspecified cervical region; M47.896 Other spondylosis, lumbar region
CPT/HCPCS: 72110; 72125; 73521

== ENCOUNTER 2024-01-31 07:06 | Outpatient (CLI) | payer MEDICARE, SELFPAY ==
--- NOTE | ~2024-01-31 | MR_ITS ---
MRI of the lumbar spine Clinical History: Back pain Technique: Axial T2-weighted images, and sagittal T1-weighted, T2-weighted, and T2 fat-sat images wer e acquired. Findings: There is no fracture the lumbar spine. There is 3 mm retrolisthesis of L3 over L4. No suspi cious bone marrow signal abnormality seen. At L1-L2, there is mild diffuse disc bulge with moderate facet arthropathy. No central canal stenosis . There is moderate left neural foraminal narrowing. Right neural foramen preserved. At L2-L3, there is mild degenerative disc narrowing. There is mild diffuse disc bulge with moderate f acet arthropathy. No central canal stenosis. There is moderate bilateral neural foraminal narrowing. At L3-L4, there is severe degenerative disc narrowing. Diffuse disc bulge and severe facet arthropath y result in severe spinal canal stenosis/thecal sac compression. There is severe bilateral neural for aminal compromise. At L4-L5, there is severe degenerative disc narrowing. There is mild diffuse disc bulge with moderate facet arthropathy. No marisela central canal stenosis. There is severe bilateral neural foraminal calib er otherwise. At L5-S1, there is severe degenerative disc narrowing, with moderate facet arthropathy. No central ca nal stenosis or neural foraminal narrowing. Paravertebral soft tissues are unremarkable. Impression: Severe degenerative spondylosis, especially at L3-L4 and L4-L5, as detailed above. 3 mm retrolisthesis of L3 over L4. Reviewed, dictated and finalized at [facility]. Impression: Severe degenerative spondylosis, especially at L3-L4 and L4-L5, as detailed abo ve. 3 mm retrolisthesis of L3 over L4.
== END 2024-01-31 07:07 | disposition home or self-care (01) ==
LOC: MICIMG 07:07
PROVIDERS: PCP Nurse Practitioner; Visit Provider Neurological Surgery
DX: M47.896 Other spondylosis, lumbar region (principal); M43.16 Spondylolisthesis, lumbar region
CPT/HCPCS: 72148

== ENCOUNTER 2024-05-06 10:07 | Outpatient (CLI) | payer MEDICARE, SELFPAY ==
--- NOTE | ~2024-05-06 | XR_ITS ---
Clinical Indication: Cough PA and lateral views of the chest: Comparison: None Findings: The lungs are clear, without evidence of focal consolidation or pleural effusion. Cardiome diastinal silhouette is within normal limits. Bones and soft tissues are unremarkable. Impression: Normal chest. Reviewed, dictated and finalized at location . [employer] Impression: Normal chest.
== END 2024-05-06 10:08 | disposition home or self-care (01) ==
LOC: GOSHIMG 10:07
PROVIDERS: PCP Clinical Nurse Specialist; Visit Provider Clinical Nurse Specialist
DX: R05.9 Cough, unspecified (principal); J44.9 Chronic obstructive pulmonary disease, unspecified
CPT/HCPCS: 71046

== ENCOUNTER 2024-05-13 09:38 | Outpatient (CLI) | payer MEDICARE, SELFPAY ==
--- NOTE | ~2024-05-13 | CT_ITS ---
EXAMINATION:CT lung screening DATE: 05/13/2024 09:49 INDICATION: Nicotine dependence, unspecified. Current smoker with 40 pack year history. TECHNIQUE: Computed tomography (CT) of the chest was performed without intravenous contrast. Automate d exposure control and iterative reconstruction technique were employed. The dose-length product (DLP ) was 182.61 mGy-cm. COMPARISON: None. FINDINGS: There is mild emphysema. A calcified right lung nodule and calcified mediastinal lymph node are consistent with old granulomatous disease. There is a 3 mm nodule in right middle lobe. There ar e 5 mm and 4 mm nodules at right major fissure. There is a 4 mm nodule in left lower lobe. No pleural effusion. The heart size is normal. There are coronary artery calcifications. No pericardial effusio n. There is mild bilateral gynecomastia. There is moderate thoracic spondylosis. There is mild chroni c anterior wedging of multiple vertebral bodies. IMPRESSION: 1. Lung-RADS category 2: Benign appearance or behavior. Continue annual screening with noncontrast lo w-dose chest CT in 12 months. Reviewed, dictated and finalized at location B. ND CRUSHER IMPRESSION: 1. Lung-RADS category 2: Benign appearance or behavior. Continue annual screeni ng with noncontrast low-dose chest CT in 12 months.
== END 2024-05-13 09:39 | disposition home or self-care (01) ==
LOC: MICIMG 09:38
PROVIDERS: PCP Nurse Practitioner; Visit Provider Nurse Practitioner
DX: Z12.2 Encounter for screening for malignant neoplasm of respiratory organs (principal); Z87.891 Personal history of nicotine dependence
CPT/HCPCS: 71271

== ENCOUNTER 2024-08-02 12:38 | Outpatient (CLI) | payer MEDICARE, SELFPAY ==
--- OUTSIDE RECORDS SUMMARY | 2024-08-02 12:44 | XMS_ITS | Clinical Summary ---
Author Organization [facility] Address [address] [place] [address] Care Team Providers Care Manager Corporate Communications Name Role Phone Unknown, Provider Primary Care Provider Unavaila ble Source Comments [facility],non-owned Affiliates and Associated Physician Practices is amultiple site organization consisting of ambulatory clinics and hospital sitesin [place], [place], [place] and [place]. This disclosure is being madepursuant to the Care Everywhere program and may not contain all information available regarding this patient. Last updated 18.[facility] Allergies No known active allergies Medications * Be aware that medications may not be up to date on this document. Alwaysverify current medications with the patient. Medication Sig Dispensed Refills Start Date End Date Status diclofenac sodium (VOLTAREN) 75 MG tablet Take 1 Tab by mouth daily with food. 60 4 11/09/2009 Active VICODIN PO Take by mouth. Active FLEXERIL PO Take by mouth. Active ATIVAN PO Take by mouth. Active TEMAZEPAM PO Take by mouth. Active Social History Tobacco Use Types Packs/Day Years Used Date Smoking Tobacco: Every Day Cigarettes 1 40 Smokeless Tobacco: Never Alcohol Use Standard Drinks/Week Comments Yes 0 (1 standard drink = 0.6 oz pur e alcohol) 12 pack per week Sex and Gender Information Value Date Recorded Sex Assigned at Not on file Gender Identity Not on file Sexual Orientation Not on file Last Filed Vital Signs Vital Sign Reading Time Taken Comments Blood Pressure 110/78 12/06/2019 5:44 PM CDT Pulse 85 12/06/2019 5:44 PM CDT Temperature 37.2 C (99 F) 12/06/2019 5:44 PM CDT Respiratory Rate 18 12/06/2019 5:44 PM CDT Oxygen Saturation 98% 12/06/2019 5:44 PM CDT Inhaled Oxygen Concentration - - Weight 83.9 kg (185 lb) 12/06/2019 5:44 PM CDT Height 172.7 cm (5' 8 ) 12/06/2019 5:44 PM CDT Body Mass Index 28.13 12/06/2019 5:44 PM CDT Plan of Treatment Health Maintenance Due Date Last Done Comments COLOGUARD (AGES 45-75) - COL ON CA SCREENING 1954 COLON MONITORING 1954 COLONOSCOPY - COLON CA SCREENING 1954 CT COLONOGRAPHY - COLON CA SCREENING 1954 Colorectal Cancer Screening 1954 FIT - COLON CA SCREENING 1954 FLEX SIG - COLON CA SCREENING 1954 LIPID TESTING 1954 HEPATITIS C SCREENING 11/28/1972 DTAP/TDAP/TD VACCINES (1 - Tdap) 1973 PNEUMOCOCCAL VACCINE 50+ (1 of 2 - PCV) 1973 LUNG CANCER SCREENING 2004 ZOSTER VACCINE (1 of 2) 2004 AAA SCREENING 12/04/2019 SCREENING FOR DIABETES 12/06/2019 4, 01/13/2014 COVID-19 VACCINE ( - 2023-2 5 season) 2023 DEPRESSION SCREENING 04/24/2024 MEDICARE AWV CALENDAR YEAR 2024 INFLUENZA VACCINE (Season Ended) 2024 Respiratory Syncytial Virus (RSV) Vaccine Pt: or over 60 yrs (1 - 1-dose 75+ series) 2029 HEPATITIS B VACCINE Aged Out No longe r eligible based on patient's age to complete this topic HIB VACCINE Aged Out No longer eligi ble based on patient's age to complete this topic HPV VACCINE Aged Out No longer eligi ble based on patient's age to complete this topic MENINGOCOCCAL (Group B) VACCINE SHARED DECISION-MAKING Aged Out No longer eligible based on patient's age to complete this topic MENINGOCOCCAL GROUPS A/C/Y/W VACCINE Aged Out No longer eligible b ased on patient's age to complete this topic Procedures Procedure Name Priority Date/Time Associated Diagnosis Comments COMPREHENSIVE METABOLIC PANEL Timed 01/14/2014 2:34 AM CDT from Last 3 Months or Most Recently Relevant to Health Maintenance Results * (ABNORMAL) COMPREHENSIVE METABOLIC PANEL (01/14/2014 2:34 AM CDT) BUN 13 7 - 26 mg/dL [facility] Creatinine 0.9 0.6 - 1.2 mg/dL [facility] Sodium 139 136 - 145 mmol/L [facility] Potassium 3.8 3.5 - 4.5 mmol/L [facility] Chloride 108(H) 98 - 107 mmol/L [facility] CO2 23 22 - 29 mmol/L [facility] Glucose 113 70 - 115 mg/dL [facility] Calcium 8.6 8.4 - 10.2 mg/dL [facility] Protein Total 5.8(L) 6.0 - 8.3 g/dL [facility] Albumin 3.0(L) 3.4 - 5.0 g/dL [facility] Bilirubin Total 0.6 0.2 - 1.2 mg/dL [facility] Alkaline Phosphatase 52 40 - 150 Units/L [facility] ALT 9 0 - 55 Units/L [facility] AST 15 5 - 34 Units/L [facility] Anion Gap 12 8 - 18 [facility] BUN/Creatinine Ratio 14 7 - 23 [facility] Osmolality Calculated 274 270 - 300 mOsm/kg [facility] Albumin/Globulin Ratio 1.1 1.1 - 2.3 [facility] eGFR >60 >60 mL/min/1.7 3 m2 [facility] Blood specimen (specimen) BLOOD SPECIMEN / Unknown 01/14/2014 2:34 AM CDT 01/14/2014 2:53 AM CDT Sushil Bazzi DO LAB - CHEMISTRY [facility] [place] Organization Address City/State/ZIP Co de Phone Number [address] [phone] from Last 3 Months or Most Recently Relevant to Health Maintenance Care Teams Manager Corporate Communications Relationship Specialty Start Date End Date Unknown, Provider PCP - General 12/06/19
--- OUTSIDE RECORDS SUMMARY | 2024-08-02 12:44 | XMS_ITS | Referral Summary ---
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 Gender Identity Not on file Sexual Orientation Not on file Last Filed Vital Signs Vital Sign Reading Time Taken Comments Blood Pressure 143/78 01/19/2023 2:00 AM CDT Pulse 77 01/19/2023 2:00 AM CDT Temperature 36.6 C (97.9 F) 01/18/2023 10:49 PM CDT Respiratory Rate 19 01/19/2023 2:00 AM CDT Oxygen Saturation 97% 01/19/2023 12:00 AM CDT Inhaled Oxygen Concentration - - Weight 89.8 kg (198 lb) 01/18/2023 10:49 PM CDT Height - - Body Mass Index - - Plan of Treatment Not on file Procedures Procedure Name Priority Date/Time Associated Diagnosis Comments CT ABDOMEN PELVIS WO CONTRAST ED 01/19/2023 12:23 AM CDT from Last 3 Months or Most Recently Relevant to Health Maintenance Results * CT Abdomen Pelvis WO Contrast (01/19/2023 12:23 AM CDT) Anatomical Region Laterality Modality Body N/A Computed Tomogra phy 01/19/2023 1:32 AM CDT Narrative 01/19/2023 1:43 AM CDT EXAM DESCRIPTION: CT ABDOMEN PELVIS WO CONTRAST REASON FOR STUDY: Abdominal pain, acute, nonlocalized, nausea, projectile vomiting, history of SBO, multiple abdominal surgeries 10:05 PM Carlos Blue is a 67 y.o. male presenting to the ED c/o neck pain, back pain and bilateral hip pain after ground level fall prior to arrival. Patient was drinking alcohol at a bar. Patient states he was getting up off of stool and fell. He is unsure how fall occurred. Per bystanders, patient fell backwards hitting his head. Patient is unsure if he lost consciousness. He is not on blood thinners. Patient sources nausea. He denies visual changes, vomiting, paresthesias, extremity weakness, or any other injuries. No medications taken or given prior to arrival. TECHNIQUE: CT scan of the abdomen and pelvis performed without intravenous and without oral contrast using helical scanning technique. Reconstructed coronal and sagittal MPR images reviewed. All images stored on PACS. Automated exposure control was used as a dose optimization technique for this examination. COMPARISON: None REFERENCE: Per ACR white paper recommendations, unless otherwise specified no follow-up imaging is recommended for incidental renal and adrenal lesions per consensus recommendations based on imaging criteria. Further lab evaluation could be pursued based on clinical findings. FINDINGS: The sensitivity for detection of visceral lesions is diminished without the use of intravenous contrast. LOWER CHEST: No significant pulmonary abnormalities. No effusion. LIVER: Normal size. No identified cystic or solid masses. GALLBLADDER: Surgically absent. BILE DUCTS: No intrahepatic or extrahepatic ductal dilatation. SPLEEN: Normal size. No focal lesions. PANCREAS: No identified cystic or solid masses. No significant calcifications. No adjacent inflammation or peripancreatic fluid collections. Pancreatic duct not dilated. ADRENALS: Normal. KIDNEYS/URINARY TRACT: No identified significant cystic or solid masses. No stones. No hydronephrosis or hydroureter. Urinary bladder is unremarkable. GI: Small hiatal hernia. No dilated bowel loops. No obvious wall thickening. Normal appendix. No significant diverticular disease. PERITONEUM: No ascites or free air. RETROPERITONEUM: No mass or adenopathy. REPRODUCTIVE: No significant abnormality. VASCULATURE: No abdominal aortic aneurysm. Severe atheromatous vascular calcifications MUSCULOSKELETAL: No significant abnormality. OTHER: No other abnormality. IMPRESSION: No acute findings in the abdomen or pelvis. THIS IS AN ELECTRONICALLY VERIFIED FINAL REPORT 01/19/2023 1:43 AM - Electronically signed by Dada Bernabe M.D. RW T: Report ID: [id number] Reading Location: [id number] Procedure Note Dada Bernabe MD - 01/19/2023 EXAM DESCRIPTION: CT ABDOMEN PELVIS WO CONTRAST REASON FOR STUDY: Abdominal pain, acute, nonlocalized, nausea,projectile vomiting, history of SBO, multiple abdominal surgeries 10:05 PM Carlos Blue is a 67 y.o. male presenting to the ED c/oneck pain, back pain and bilateral hip pain after ground level fall prior to arrival. Patient was drinking alcohol at a bar. Patient states he was getting up off of stool and fell. He is unsure how fall occurred. Per bystanders, patient fell backwards hitting his head. Patient is unsure ifhe lost consciousness. He is not on blood thinners. Patient sources nausea.He denies visual changes, vomiting, paresthesias, extremity weakness, orany other injuries. No medications taken or given prior to arrival. TECHNIQUE: CT scan of the abdomen and pelvis performed without intravenousand without oral contrast using helical scanning technique. Reconstructed coronal and sagittal MPR images reviewed. All images stored on PACS.Automated exposure control was used as a dose optimization technique for this examination. COMPARISON: None REFERENCE: Per ACR white paper recommendations, unless otherwise specifiedno follow-up imaging is recommended for incidental renal and adrenal lesionsper consensus recommendations based on imaging criteria. Further labevaluation could be pursued based on clinical findings. FINDINGS: The sensitivity for detection of visceral lesions is diminished without the use of intravenous contrast. LOWER CHEST: No significant pulmonary abnormalities. No effusion. LIVER: Normal size. No identified cystic or solid masses. GALLBLADDER: Surgically absent. BILE DUCTS: No intrahepatic or extrahepatic ductal dilatation. SPLEEN: Normal size. No focal lesions. PANCREAS: No identified cystic or solid masses. No significant calcifications. No adjacent inflammation or peripancreatic fluidcollections. Pancreatic duct not dilated. ADRENALS: Normal. KIDNEYS/URINARY TRACT: No identified significant cystic or solid masses.No stones. No hydronephrosis or hydroureter. Urinary bladder isunremarkable. GI: Small hiatal hernia. No dilated bowel loops. No obvious wallthickening. Normal appendix. No significant diverticular disease. PERITONEUM: No ascites or free air. RETROPERITONEUM: No mass or adenopathy. REPRODUCTIVE: No significant abnormality. VASCULATURE: No abdominal aortic aneurysm. Severe atheromatousvascular calcifications MUSCULOSKELETAL: No significant abnormality. OTHER: No other abnormality. IMPRESSION: No acute findings in the abdomen or pelvis. THIS IS AN ELECTRONICALLY VERIFIED FINAL REPORT 01/19/2023 1:43 AM - Electronically signed by Dada Bernabe M.D. RW T: Report ID: [id number] Reading Location: [id number] [facility] MARTINE[facility] IMG CT PROCEDURES Final Resu lt from Last 3 Months or Most Recently Relevant to Health Maintenance [place] [address] MEDICARE MEDICARE Care Teams Pot Fluxer Relationship Specialty Start Date End Date Geovanna Mason MD [address] [address] PCP - General Family Medicine 01/18/23
--- OUTSIDE RECORDS SUMMARY | 2024-08-02 12:44 | XMS_ITS | Clinical Summary ---
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 Gender Identity Not on file Sexual Orientation [...] Mass Index - - Plan of Treatment Health Maintenance Due Date Last Done Comments Colon Cancer Screening-Colonoscopy 1954 Depression Screening 1954 Fall Risk Assessment 1955 Hepatitis C Screening 1955 Prostate Cancer Screening-PSA 1954 Hepatitis B Screening 1972 Zoster Vaccine (1 of 2) 2004 Well Visit 65+ 12/04/2019 Pneumococcal vaccine 65+ (2 of 2 - PCV) 02/17/2022 1 Covid-19 Vaccine (3 - season) 2023, 06/18/2020 Influenza Vaccine (Season Ended) 2024 12/30/19 23 DTaP/Tdap/Td Vaccine (2 - Td or Tdap) 01/21/2028 Abdominal Aortic Aneurysm (AAA) Screen Completed Procedures Procedure Name Priority Date/Time Associated Diagnosis [...] Dada Bernabe M.D. RW T: Report ID: [id number] Reading Location: [id number] Procedure Note Dada Bernabe MD - 01/19/2023 [...] Dada Bernabe M.D. RW T: Report ID: [id number] Reading Location: [place] [address] PROCEDURES Final Resu lt from Last 3 Months or Most Recently Relevant to Health Maintenance [place] [address] MEDICARE Care Teams Power Technician Relationship Specialty Start Date End Date Geovanna Mason MD [address] [place] [address] [place] [id number] PCP - General Family Medicine 01/18/23
--- OUTSIDE RECORDS SUMMARY | 2024-08-02 12:44 | XMS_ITS | Clinical Summary ---
Author Organization [facility] Address [address] [place] [id number] Care Team Providers Care Bleach Tester Name Role Phone Unavailable Primary Care Provider Unavailabl e Social History Tobacco Use Types Packs/Day Years Used Date Smoking Tobacco: Never Assessed Sex and Gender Information Value Date Recorded Sex Assigned at Not on file Legal Sex Male 7:50 PM CDT Gender Identity Not on file Sexual Orientation Not on file Plan of Treatment Health Maintenance Due Date Last Done Comments Colorectal Cancer Screening Colonoscopy (10 Years) 1954 Hepatitis C 1972 DTaP, Tdap and Td Vaccines ( 1 - Tdap) 1973 Zoster Vaccines (1 of 2) 2004 Pneumococcal Vaccine: 65+ Ye ars (1 of 1 - PCV) 12/04/2019 COVID-19 Vaccine ( - 2023-2 5 season) 2023 RSV Immunization or 60+ Years (1 - 1-dose 75+ series) 2029 Meningococcal B Vaccine Aged Out No l onger eligible based on patient's age to complete this topic Meningococcal Vaccine Aged Out No hugh claudette eligible based on patient's age to complete this topic RSV Immunizations Under 20 Months Aged Out No longer eligible based on patient's age to complete this topic
== END 2024-08-02 12:39 | disposition home or self-care (01) ==
LOC: ANHAUDASC 12:39
PROVIDERS: PCP Nurse Practitioner; Visit Provider Otolaryngology Otolaryngology/Facial Plastic Surgery
DX: H61.23 Impacted cerumen, bilateral (principal); H90.42 Sensorineural hearing loss, unilateral, left ear, with unrestricted hearing on the contralateral side; H90.71 Mixed conductive and sensorineural hearing loss, unilateral, right ear, with unrestricted hearing on the contralateral side
CPT/HCPCS: 92557; 92567

== ENCOUNTER 2024-08-20 10:19 | Outpatient (CLI) | payer MEDICARE, SELFPAY ==
--- NOTE | ~2024-08-20 | CT_ITS ---
CT facial bones w con Ordering provider: Hernandez Anguiano MD History: . H90.A11 - Conductive hearing loss, unilateral, right ear ... . Comparison: None. Technique: Thin slice axial CT of the facial bones was performed without contrast. Coronal and sagit sabine reformatted images were also obtained. . Automated exposure control and iterative reconstruction technique were employed. The dose-length product was 305.45 mGy-cm. 100 mL Omnipaque 350 was given I V. FINDINGS: PARANASAL SINUSES: Bilateral frontal and sphenoid sinus disease. Bilateral maxillary sinus disease mo re on the right. Otherwise, Well aerated. BONES: No facial fracture including no nasal bone fracture. Nasal septal deviation. ORBITS AND SUPERFICIAL SOFT TISSUES: The optic globes and orbits are normal. Multiple small lymph nod es are seen bilaterally in the neck of the The superficial soft tissues are normal. VISUALIZED MASTOIDS: Soft tissue density is seen in the right middle ear involving the Prussak's spac e which may indicate otitis media or cholesteatoma cannot be excluded. Follow-up advised. Fluid also seen in the right mastoid bone. Sclerotic right mastoid with highly suggestive postoperative changes seen. Minimal effusion in the left mastoid air cells laterally. left mastoid air cells are well aerated. LIMITED VISUALIZED BRAIN PARENCHYMA: Normal. IMPRESSION: Pansinusitis. Soft tissue density in the right middle ear which may indicate otitis media versus cholesteatoma. Fol low-up and further evaluation advised. Highly suggestive postoperative changes in the right posterior bone. Minimal effusion the left mastoid air cells laterally. Reviewed, dictated and finalized at location A. IMPRESSION: Pansinusitis. Soft tissue density in the right middle ear which may indicate otitis media conor heidy cholesteatoma. Follow-up and further evaluation advised. Highly suggestive postoperative changes in the right posterior bone. Minimal effusion the left mastoid air cells laterally.
[2024-08-20 10:37] LABS: Estimated Glomerular Filt Rate > 60
== END 2024-08-20 10:20 | disposition home or self-care (01) ==
LOC: MICIMG 10:21
PROVIDERS: PCP Otolaryngology Otolaryngology/Facial Plastic Surgery; Visit Provider Otolaryngology Otolaryngology/Facial Plastic Surgery
DX: H90.A11 Conductive hearing loss, unilateral, right ear with restricted hearing on the contralateral side (principal)
CPT/HCPCS: 70487; Q9967

== ENCOUNTER 2024-12-13 10:36 | Outpatient (CLI) | payer MEDICARE, SELFPAY ==
--- OUTSIDE RECORDS SUMMARY | 2024-12-13 10:45 | XMS_ITS | Clinical Summary ---
Author Organization [facility] [email or web address] Address [address] [place] [address] Care Team Providers Care Shredding Specialist Name Role Phone Unknown, Provider Primary Care Provider Unavaila ble Source Comments [facility],non-owned Affiliates and Associated Physician Practices is amultiple site organization consisting of ambulatory clinics and hospital sitesin [place], [place], [place] and [place]. This disclosure is being madepursuant to the Care Everywhere program and may not contain all information available regarding this patient. Last updated 18.[facility] [email or web address] Allergies No known active allergies Medications * Be aware that medications may not be up to date on this document. Alwaysverify current medications with the patient. 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 Gender Identity Not on file Sexual Orientation [...] 5:44 PM CDT Height 172.7 cm (5' 8) 12/06/2019 5:44 PM CDT Body Mass Index [...] MEDICARE AWV CALENDAR YEAR 2024 INFLUENZA VACCINE (#1) 2024 Respiratory Syncytial Virus (RSV) Vaccine Pt: [...] CDT) BUN 13 7 - 26 mg/dL [facility] Creatinine 0.9 0.6 - 1.2 mg/dL [facility] Sodium 139 136 - 145 mmol/L [facility] Potassium 3.8 3.5 - 4.5 mmol/L [facility] Chloride 108(H) 98 - 107 mmol/L [facility] CO2 23 22 - 29 mmol/L [facility] Glucose 113 70 - 115 mg/dL [facility] Calcium 8.6 8.4 - 10.2 mg/dL [facility] Protein Total 5.8(L) 6.0 - 8.3 g/dL [facility] Albumin 3.0(L) 3.4 - 5.0 g/dL [facility] Bilirubin Total 0.6 0.2 - 1.2 mg/dL [facility] Alkaline Phosphatase 52 40 - 150 Units/L [facility] ALT 9 0 - 55 Units/L [facility] AST 15 5 - 34 Units/L [facility] Anion Gap 12 8 - 18 [facility] BUN/Creatinine Ratio 14 7 - 23 [facility] Osmolality Calculated 274 270 - 300 mOsm/kg [facility] Albumin/Globulin Ratio 1.1 1.1 - 2.3 [facility] eGFR >60 >60 mL/min/1.7 3 m2 [facility] Blood specimen (specimen) BLOOD SPECIMEN / Unknown 01/14/2014 2:34 AM CDT 01/14/2014 2:53 AM CDT us Sushil Bazzi DO LAB - CHEMISTRY ORDERABLES F inal Result [address] [phone] from Last 3 Months or Most Recently Relevant to Health Maintenance Insurance SELF PAY NO INSURANCE Member Subscriber Plan / Payer (Ef fective for All Dates) Name:Perry Corona Member ID:Not on file Relation to Subscriber:Self Name:Perry Corona Subscriber ID:Not on file Payer ID:Not on file Group ID:Not on file Type:Self Pay Address: [place], [place] [employer] MEDICARE ADV SELF PAY NO INSURANCE Member Subscriber Plan / Payer (Ef fective for All Dates) Name:Perry Corona Member ID:Not on file Relation to Subscriber:Not on file Name:PERRY CORONA Subscriber ID:Not on file (Home) Address: [place] [address] Payer ID:Not on file Group ID:Not on file Type:Self Pay Address: [place], [place] Care Teams Shredding Specialist Relationship Specialty Start Date End Date Unknown, Provider PCP - General 12/06/19
--- OUTSIDE RECORDS SUMMARY | 2024-12-13 10:45 | XMS_ITS | Clinical Summary ---
Author Organization [facility] Address [address] [place] [address] Care Team Providers Care Ranch Hand Name Role Phone Unavailable Primary Care Provider [...] Td Vaccines ( 1 - Tdap) 1973 Pneumococcal Vaccine: 50+ Ye ars (1 of 1 - PCV) 2004 Zoster Vaccines (1 of 2) 2004 COVID-19 Vaccine ( - 2023-2 5 season) [...]
--- OUTSIDE RECORDS SUMMARY | 2024-12-13 10:45 | XMS_ITS | Clinical Summary ---
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 RW T: Report ID: [id number] Reading Location: [id number] Procedure Note Dada Bernabe MD - 01/19/2023 [...] Dada Bernabe M.D. RW T: Report ID: [id number] Reading Location: [place] [address] [address] PROCEDURES Final Resu lt from Last 3 Months or Most Recently Relevant to Health Maintenance Insurance MEDICARE MEDICARE Care Teams Public Health Administrator Relationship Specialty Start Date End Date Geovanna Mason MD [address] [address] PCP - General Family Medicine 01/18/23
--- NOTE | 2024-12-13 10:49 | ECG_ITS ---
Test Date: 2024-12-13 10:54:10 Measurements Intervals [place] Rate: 71 P: -3 TX: 147 QRS: 24 QRSD: 106 T: 44 QT: 412 QTc: 448 Interpretive Statements SINUS RHYTHM INCOMPLETE RIGHT BUNDLE BRANCH BLOCK DELAYED PRECORDIAL R/S TRANSITION BASELINE ARTIFACT- I, III, AVR, AVL, AVF, V1 BORDERLINE ECG No previous ECG available for comparison Electronically Signed On 12-13-2024 11:13:05 CDT by Michael Harrington D.O.
== END 2024-12-13 10:37 | disposition home or self-care (01) ==
LOC: ANHSURGERY 10:43
PROVIDERS: PCP Nurse Practitioner; Visit Provider Otolaryngology Otolaryngology/Facial Plastic Surgery
DX: F17.210 Nicotine dependence, cigarettes, uncomplicated (principal); Z01.818 Encounter for other preprocedural examination; I45.10 Unspecified right bundle-branch block
CPT/HCPCS: 93005

== ENCOUNTER 2024-12-20 00:21 | Day surgery (SDC) | payer MEDICARE, SELFPAY ==
[2024-12-12 14:43] VITALS: BMI 30.9
--- NOTE | 2024-12-12 15:14 | PC.NURSE ---
Report to the Outpatient Waiting Room, entrance under the green pavilion located off [facility], at time __8:30AM___ on date __12/20/24___. Planned Procedure Time: ___10:30AM___.? Time changes happen often and if your time is changed the preop area will call you the afternoon before. - You and your visitor will be asked to self-screen and do not enter if you have any COVID symptoms. Please call surgeon if you need to reschedule. - A mask is optional within the hospital at this time. Patients may have clear liquids (water, carbonated beverages, clear teas, apple juice) until 3 hours prior to surgery (7:30AM) with a maximum of 20 ounces. - No food from midnight until time of surgery and no smoking, or chewing tobacco (or any form of nicotine). No chewing gum, candy or mints. Take only the following medications with a SIP of water on the morning of surgery: ____GABAPENTIN. MAY TAKE/USE ALBUTEROL INHALER AND CLONAZEPAM NEEDED. DO NOT STOP ANY OF YOUR OTHER PRESCRIPTION MEDICATIONS PRIOR TO SURGERY EXCEPT THE FOLLOWING Hold all vitamins and supplements for 3 days per anesthesiologist. Medications to discontinue per physician NONE Date to take last dose Please no make-up, nail kyrgyz, hairspray, perfume, deodorant, or body powder the day of surgery.? No jewelry (including any body piercings) or valuables the day of surgery, leave them at home.? Please take a shower or bath the night before, or the morning of, surgery with an antibacterial soap.? Wear comfortable, loose fitting clothing.? - Jewelry must be removed prior to entering the operating room.? Rings and piercings that are not removed may be cut off. - The hospital will not accept responsibility for valuables.? - Please leave all valuables, including medications, at home the day of surgery. If you are going home after surgery, a licensed hazmat truck driver must drive you home.? - NO public transportation without another adult if you receive anesthesia. - We recommend that an adult stay with you for 24 hours following discharge. - We also recommend that you do not drive, make important decision, drink alcoholic beverages, or take any drugs that were not prescribed by your health care provider for at least 24 hours after your discharge time. Follow any additional instructions given to you from your surgeon. Telephone instructions given to ____PATIENT and asked if any additional questions and then verbalized understanding. Patient advised to call surgeon office or pre surgery nurse liaison [phone] if any additional questions.
[2024-12-20] VITALS (9 sets, daily range): BP systolic 117–153; BP diastolic 48–97; PULSE 68–78; RESP 12–20; TEMP 36.4–36.6; O2SAT 91–100
--- OUTSIDE RECORDS SUMMARY | 2024-12-20 00:24 | XMS_ITS | Clinical Summary ---
Author Organization [facility] Address [address] [address] Care Team Providers Care Records Assistant Name Role Phone Unknown, Provider Primary Care Provider Unavaila ble Source Comments [facility],non-owned Affiliates and Associated Physician Practices is amultiple site organization consisting of ambulatory clinics and hospital sitesin [place], [place], [place] and [place]. This disclosure is being madepursuant to the Care Everywhere program and may not contain all information available regarding this patient. 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 Gender Identity Not on file Sexual Orientation [...] CDT) BUN 13 7 - 26 mg/dL [facility] Creatinine 0.9 0.6 - 1.2 mg/dL [facility] Sodium 139 136 - 145 mmol/L [facility] Potassium 3.8 3.5 - 4.5 mmol/L [facility] Chloride 108(H) 98 - 107 mmol/L [facility] CO2 23 22 - 29 mmol/L [facility] Glucose 113 70 - 115 mg/dL [facility] Calcium 8.6 8.4 - 10.2 mg/dL [facility] Protein Total 5.8(L) 6.0 - 8.3 g/dL [facility] Albumin 3.0(L) 3.4 - 5.0 g/dL [facility] Bilirubin Total 0.6 0.2 - 1.2 mg/dL [facility] Alkaline Phosphatase 52 40 - 150 Units/L [facility] ALT 9 0 - 55 Units/L [facility] AST 15 5 - 34 Units/L [facility] Anion Gap 12 8 - 18 [facility] BUN/Creatinine Ratio 14 7 - 23 [facility] Osmolality Calculated 274 270 - 300 mOsm/kg [facility] Albumin/Globulin Ratio 1.1 1.1 - 2.3 [facility] eGFR >60 >60 mL/min/1.7 3 m2 [facility] Blood specimen (specimen) BLOOD SPECIMEN / Unknown 01/14/2014 2:34 AM CDT 01/14/2014 2:53 AM CDT us Sushil Bazzi DO LAB - CHEMISTRY ORDERABLES F inal Result [address] [phone] from Last 3 Months or Most Recently Relevant to Health Maintenance Insurance SELF PAY NO INSURANCE Member Subscriber Plan / Payer (Ef fective for All Dates) Name:Perry Corona Member ID:Not on file Relation to Subscriber:Self Name:Perry Corona Subscriber ID:Not on file Payer ID:Not on file Group ID:Not on file Type:Self Pay Address: [place], [place] [employer] MEDICARE ADV SELF PAY NO INSURANCE Member Subscriber Plan / Payer (Ef fective for All Dates) Name:Perry Corona Member ID:Not on file Relation to Subscriber:Not on file Name:PERRY CORONA Subscriber ID:Not on file (Home) Address: [place] [address] Payer ID:Not on file Group ID:Not on file Type:Self Pay Address: [place], [place] Care Teams Records Assistant Relationship Specialty Start Date End Date Unknown, Provider PCP - General 12/06/19
--- OUTSIDE RECORDS SUMMARY | 2024-12-20 00:24 | XMS_ITS | Clinical Summary ---
Author Organization [facility] Address [address] [place] [address] Care Team Providers Care Weather Reporter Name Role Phone Unavailable Primary Care Provider [...]
--- OUTSIDE RECORDS SUMMARY | 2024-12-20 00:24 | XMS_ITS | Clinical Summary ---
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 RW T: Report ID: [id number] Reading Location: [id number] Procedure Note Dada Bernabe MD - 01/19/2023 [...] Dada Bernabe M.D. RW T: Report ID: [id number] Reading Location: [place] [id number] PROCEDURES Final Resu lt from Last 3 Months or Most Recently Relevant to Health Maintenance Insurance MEDICARE MEDICARE Care Teams Machine Set Up Relationship Specialty Start Date End Date Geovanna Mason MD [address] [address] PCP - General Family Medicine 01/18/23
--- NOTE | 2024-12-20 07:03 | PM.IMHP ---
H&P: HPI History of Present Illness Date/Time: 12/20/24 07:03 Chief Complaint: chronic sinusitis Review of Systems Review of Systems: All systems reviewed & are unremarkable except as noted in HPI and below Constitutional: Constitutional: Reports as per HPI ENT: Reports as per HPI Respiratory: Respiratory: Reports as per HPI Gastrointestinal: Gastrointestinal: Reports as per HPI [facility] Past Medical History Medical History (Updated 12/20/24 @ 07:06 by Hernandez Anguiano MD) Chronic ethmoidal sinusitis Conductive hearing loss in right ear Mixed hearing loss of right ear Conductive hearing loss, unilateral, right ear with restricted hearing on the contralateral side Bilateral impacted cerumen Bilateral hearing loss Otorrhea of left ear COPD (chronic obstructive pulmonary disease) Hyperlipidemia Hernia BMI 30.0-30.9,adult BMI 29.0-29.9,adult Surgical History Surgical History Status post cervical arthrodesis History of ankle surgery H/O rotator cuff surgery Family History Family History Father Heart disease Mother Sibling Hypertension Heart disease Breast cancer Brain tumor Social History Social History Social History: Caffeine-coffee Smoking packs per day: 1 Smoking cigarettes per day: 20.0 Years smoked: 55 Smoking pack-years: 55.00 Smoking status: Current every day smoker Tobacco type: cigarettes Second hand tobacco smoke exposure: Yes Alcohol intake: current Drinks per week: 12 Alcohol use details: beer Substance use: never Substance use type: does not use Do You Feel Safe in your Home?: Yes Lack of Transportation: No Lack of Food: Never True Current Housing: I Have Housing Concerned About Future Housing: No Difficulty Paying Gas/Electric Bills: No Difficulty Paying for Meds: No Currently Unemployed: No Education: High School Diploma/GED Difficulty w/ Childcare or Family Care: No Living arrangements: with family Additional living arrangements comments: Occupation/Education: retired Additional occupation/education comments: [employer] Gender identity (if verbalized by the patient): Male Spiritual care concerns: No Meds Home Medications and Allergies Home Medications ?Medication ?Instructions ?Recorded ?Confirmed ?Type triamcinolone acetonide 0.1 % 1 applic topical BID PRN rash #80 12/26/23 12/12/24 Rx topical cream grams gabapentin 600 mg tablet 600 mg PO BID #180 tabs 04/25/24 12/12/24 Rx esomeprazole magnesium 40 mg 40 mg PO DAILY 06/21/24 12/12/24 History capsule,delayed release (Nexium) albuterol sulfate 90 mcg/actuation 1 inh inhalation QID PRN Shortness 07/12/24 12/12/24 Rx aerosol inhaler Of Breath #8.5 grams clonazepam 0.5 mg tablet 0.5 mg PO BID PRN anxiety #60 tabs 11/18/24 12/12/24 Rx fluticasone propionate 50 1 spray intranasal DAILY PRN nasal 12/12/24 12/12/24 History mcg/actuation nasal congestion spray,suspension Allergies Allergy/AdvReac Type Severity Reaction Status Date / Time No Known Allergies Allergy Unknown Verified 12/12/24 14:40 Exam Const: General: cooperative, healthy appearing, comfortable, no acute distress, well developed, alert, awake and Physically active Orientation/consciousness: oriented to person, oriented to place, oriented to time and patient oriented x3 HENMT: Head: normocephalic and atraumatic Ears: external ears normal and EAC's normal Face/Nose/Sinus: Normal external nose present and Normal nares present Mouth: Yes Normal oral and palatal mucosa present, Yes lip normal and Yes tongue normal Other: hypertrophy of nasal turbinates Severely retracted eardrum. Valsalva maneuver was negative no equalization. left deviated nasal septum Eyes: General: appearance normal, both eyes and all related structures Neck: Neck: normal visual inspection, full ROM and trachea midline Resp: Effort & Inspection: normal respiratory effort and able to speak in complete sentences Cardio: Rate: regular rate Neuro: General: oriented to person, oriented to place, oriented to time and patient oriented x3 Assessment and Plan Assessment and plan (1) Conductive hearing loss in right ear: Qualifiers: Contralateral hearing status: restricted hearing on contralateral side Qualified Code(s): H90.A11 - Conductive hearing loss, unilateral, right ear with restricted hearing on the contralateral side Code(s): H90.11 - Conductive hearing loss, unilateral, right ear, with unrestricted hearing on the contralateral side Status: Acute (2) Mixed hearing loss of right ear: Qualifiers: Contralateral hearing status: restricted hearing on contralateral side Qualified Code(s): H90.A31 - Mixed conductive and sensorineural hearing loss, unilateral, right ear with restricted hearing on the contralateral side Code(s): H90.71 - Mixed conductive and sensorineural hearing loss, unilateral, right ear, with unrestricted hearing on the contralateral side Status: Acute (3) Chronic ethmoidal sinusitis: Code(s): J32.2 - Chronic ethmoidal sinusitis Status: Acute Plan Details: 68-year-old male with right-sided hearing difficulty, and chronic sinusitis with deviated nasal septum coming for follow-up. Patient reports having right-sided hearing difficulty persistent since last visit. Patient has used antibiotics and Flonase nasal sprays without improvement patient denies vertigo imbalance. m 1 applic topical BID PRN rash #80 grams 12/26/23 [Rx Confirmed 11/04/24] gabapentin 600 mg tablet 600 mg PO BID #180 tabs 04/25/24 [Rx Confirmed 11/04/24] esomeprazole magnesium 40 mg capsule,delayed release (Nexium) 40 mg PO DAILY 06/21/24 [History Confirmed 11/04/24] albuterol sulfate 90 mcg/actuation aerosol inhaler 1 inh inhalation QID PRN Shortness Of Breath #8.5 grams 07/12/24 [Rx Confirmed 11/04/24] clonazepam 0.5 mg tablet 0.5 mg PO BID PRN anxiety #60 tabs 08/12/24 [Rx Confirmed 11/04/24] fluoxetine 40 mg capsule 40 mg PO DAILY #30 caps 09/12/24 [Rx Confirmed 11/04/24] fluticasone propionate 50 mcg/actuation nasal spray,suspension 1 spray intranasal DAILY 30 days #16 grams 09/20/24 [Rx Confirmed 11/04/24] Do you need a note to return to daycare/school/sports/work: No Nurse's Note: Pt stated it is the same as his last office visit in August, stated he is here to decided if Dr. Anguiano would like to do surgery or not. Preferred pharmacy verified?: Yes Preferred laboratory: [place] Exam Exam Const General: cooperative, healthy appearing, comfortable, no acute distress, well developed, alert, awake and Physically active Orientation/Consciousness: oriented to person, oriented to place, oriented to time and patient oriented x3 HENMT Head: normocephalic and atraumatic Ears: external ears normal and EAC's normal Face/Nose/Sinus: Normal external nose present and Normal nares present Mouth: Normal oral and palatal mucosa present, lip normal and tongue normal Other: Severely retracted eardrum. Valsalva maneuver was negative no equalization. left deviated nasal septum Eyes General: appearance normal, both eyes and all related structures Neck General: Yes normal visual inspection, Yes full ROM and Yes trachea midline Resp Effort/Inspection: normal respiratory effort and able to speak in complete sentences Cardio Rate: Yes regular rate Neuro General: Yes oriented to person, Yes oriented to place and Yes oriented to time Assessment & Plan (1) Ear Problem: Code(s): H93.90 - Unspecified disorder of ear, unspecified ear Qualifiers: Laterality: right Qualified Code(s): H93.91 - Unspecified disorder of right ear (2) Mixed hearing loss of right ear: Code(s): H90.71 - Mixed conductive and sensorineural hearing loss, unilateral, right ear, with unrestricted hearing on the contralateral side Category: Medical Qualifiers: Contralateral hearing status: restricted hearing on contralateral side Qualified Code(s): H90.A31 - Mixed conductive and sensorineural hearing loss, unilateral, right ear with restricted hearing on the contralateral side (3) Chronic ethmoidal sinusitis: Code(s): J32.2 - Chronic ethmoidal sinusitis (4) Chronic maxillary sinusitis: Code(s): J32.0 - Chronic maxillary sinusitis (5) Deviated nasal septum: Code(s): J34.2 - Deviated nasal septum (6) Chronic frontal sinusitis: Code(s): J32.1 - Chronic frontal sinusitis Plan 68-year-old male with right-sided mixed hearing loss, right-sided eustachian tube dysfunction,bilateral chronic sinusitis,left deviated nasal septum I have personally reviewed the imaging CT sinuses study the patient performed and i agree with the report :there is bilateral maxillary ,bilateral anterior ethmoid opacity,bilateral frontal opacity I have also reviewed the imaging study with the patient I have discussed with the patient that the cause of his right-sided the station tube dysfunction is his chronic sinusitis hence we need to address the chronic sinusitis that is not improving on medication as well Myringotomy for the right side ear was done today without tube placement as the patient had difficulty tolerating the procedure and we could place tube ,the patient felt immediate relief of his ear pressure sensation once the myringotomy was done . Hence we are going to schedule :Right side myringotomy and T tube insertion +Septoplasty+bilateral inferior turbinates submucous reduction +bilateral anterior ethmoidectomy+bilateral maxillary antrostomy +bilateral frontal sinuotomy with balloon dilation 2-Risk of septoplasty procedures were discussed with the patient which include but not limited to; Bleeding, infection, septal perforation, saddle nose deformity, intranasal scarring 3-Risks for sinus surgery: injury to the skull base, injury to the eye, need for further surgery. Risk of recurrent disease is also discussed. 4-Risk for Myringotomy and tube placement : Anesthesia complications:Allergic reactions, breathing problems, or heart irregularities can occur due to anesthesia. Infection:While less common with good post-operative care, infection can still occur. Bleeding:Bleeding can occur during the procedure or afterward, potentially leading to blockage of the tube. Hearing loss:While the procedure is intended to improve hearing, it can sometimes lead to hearing loss, either temporary or permanent. Scarring:Scarring of the eardrum can occur, which may be a result of previous infections or the surgery itself. Tube problems:Tubes may come out too soon, require removal, or stay in too long. Eardrum perforation:In rare cases, the eardrum may not close after the tube is removed, requiring additional surgery. Fluid drainage:Some ear drainage may occur after surgery, which should subside after a few days. Tube clogging:Tubes can become clogged with blood, mucus, or earwax. Granulation tissue:In some cases, granulation tissue can develop around the tube
--- NOTE | 2024-12-20 07:07 | WPDHPUPDATE1 ---
History and Physical Update Update Date/Time: 12/20/24 07:07 History and Physical has been reviewed, including an updated exam of the patient. There are NO changes in the patient's condition. Risks, benefits, and alternatives have been discussed and questions answered. Patient agrees to proceed with procedure.
--- NOTE | 2024-12-20 07:13 | P.PNAN_ITS ---
Anes - Initial Pre Proc Eval Procedure: Operation Date: 12/20/24 10:30 Proposed Procedures p Image Guided Bilateral Inferior Turbinates Submucous Reduction, Bilateral Anterior Ethmoidectomy, Bilateral Maxillary Antrostomy, Bilateral Frontal Sinusotomy with Balloon Dilation - Hernandez Anguiano MD s Endoscopic Septoplasty - MD ivet Busby Right Side Myringotomy and T-Tube Insertion - Hernandez Anguiano MD Date/Time: 12/20/24 07:13 Surgeon: Hernandez Anguiano MD Pre Op Diagnosis: sinusitis,dev nasal septum,cholesteatoma of attic Patient Data Age: 69 Gender: M Height: 1.71 m Weight: 91 kg Allergies Allergy/AdvReac Type Severity Reaction Status Date / Time No Known Allergies Allergy Unknown Verified 12/12/24 14:40 Home Medications ?Medication ?Instructions ?Recorded ?Confirmed ?Type triamcinolone acetonide 0.1 % 1 applic topical BID PRN rash #80 12/26/23 12/12/24 Rx topical cream grams gabapentin 600 mg tablet 600 mg PO BID #180 tabs /06/1812/12/24 Rx esomeprazole magnesium 40 mg 40 mg PO DAILY 06/21/24 0 12/12/24 History capsule,delayed release (Nexium) albuterol sulfate 90 mcg/actuation 1 inh inhalation QI D PRN Shortness 07/12/24 12/12/24 Rx aerosol inhaler Of Breath #8.5 grams clonazepam 0.5 mg tablet 0.5 mg PO BID PRN anxiety #6 0 tabs 11/18/24 12/12/24 Rx fluticasone propionate 50 1 spray intranasal DAILY PRN nasal 12/12/24 12/12/24 History mcg/actuation nasal congestion spray,suspension Patient hx anesthesia problems: none Family hx anesthesia problems: none Results Review: All pre-operative results and documents have been reviewed as part of the pre- operative evaluation. [facility] Past Medical History Medical History (Updated 12/20/24 @ 07:13 by Angelito Wyatt DO) GERD (gastroesophageal reflux disease) Asthma Chronic ethmoidal sinusitis Conductive hearing loss in right ear Mixed hearing loss of right ear Conductive hearing loss, unilateral, right ear with restricted hearing on the contralateral side Bilateral impacted cerumen Bilateral hearing loss Otorrhea of left ear COPD (chronic obstructive pulmonary disease) Hyperlipidemia Hernia BMI 30.0-30.9,adult BMI 29.0-29.9,adult Surgical History Surgical History Status post cervical arthrodesis History of ankle surgery H/O rotator cuff surgery Family History Family History Father Heart disease Mother Sibling Hypertension Heart disease Breast cancer Brain tumor Social History Social History Social History: Caffeine-coffee Smoking packs per day: 1 Smoking cigarettes per day: 20.0 Years smoked: 55 Smoking pack-years: 55.00 Smoking status: Current every day smoker Tobacco type: cigarettes Second hand tobacco smoke exposure: Yes Alcohol intake: current Drinks per week: 12 Alcohol use details: beer Substance use: never Substance use type: does not use Do You Feel Safe in your Home?: Yes Lack of Transportation: No Lack of Food: Never True Current Housing: I Have Housing Concerned About Future Housing: No Difficulty Paying Gas/Electric Bills: No Difficulty Paying for Meds: No Currently Unemployed: No Education: High School Diploma/GED Difficulty w/ Childcare or Family Care: No Living arrangements: with family Additional living arrangements comments: Occupation/Education: retired Additional occupation/education comments: [employer] Gender identity (if verbalized by the patient): Male Spiritual care concerns: No Anes - Eval Final PreProcedure Day of Procedure 12/20/24 07:13 Patient weight: obese Heart: regular rate and rhythm Lungs: clear to auscultation Airway: Mallampati scale class II Neurological: alert and oriented Last oral intake: >/= 8 hours ASA classification: III Emergent: no Anesthetic plan: proceed Anesthesia type and monitoring: general ETT and standard monitoring Results Review: All pre-operative results and documents have been reviewed as part of the pre-operative evaluation. Informed Consent: The patient's anesthetic plan and its attendant risks and benefits were discussed with the patient/family/POA. Questions were solicited and answers provided to the satisfaction of the patient/family/POA.
[2024-12-20] MEDS: ACETAMINOPHEN 500 MG TABLET 1000 MG PO (09:09)
[2024-12-20] MEDS: OXYMETAZOLINE HCL 0.05% NAS 15 ML BTL (*BKC) 2 SPRAY NASAL ×3 (09:10→09:20)
[2024-12-20] MEDS: LACTATED RINGERS 1,000 ML 30 ML IV CONT ×2 (09:18→14:00)
--- NOTE | 2024-12-20 10:13 | P.OP_ITS ---
Procedure Note - Detailed Date of Procedure 12/20/24 Pre-op Diagnosis sinusitis,dev nasal septum,cholesteatoma of attic Post-op Diagnosis Same Procedure Performed . Right myringotomy and Tube insertion ? Endoscopic septoplasty ? Nasal endoscopy with maxillary antrostomy bilaterally. ? Nasal endoscopy with anterior ethmoidectomy bilaterally. ? Nasal endoscopy with frontal balloon dilation bilaterally ? Bilateral inferior turbinate reduction (intramural (submucosal) ablation of the inferior turbinate.) ? Therapeutic fracture of the inferior turbinates bilaterally. Surgeon Hernandez Anguiano MD Anesthesia General Description of Procedure The patient was seen in the preoperative area, informed consent was checked and confirmed. The patient was taken to the operating room, sedated and placed under general anesthesia with an endotracheal tube . Eyes were taped and were prepped and draped in the usual sterile fashion. The right ear was examined with the binocular microscope and cleaned of cerumen with a curette. The tympanic membrane was examined--findings as detailed above. A radial myringotomy was made in the anterior-inferior quadrant. Suction used gently to clear the middle ear space. A tympanostomy T tube was inserted and positioned with forceps and pick. Topical antibiotic drops were applied. The nose was examined, and the right anterior septum was injected with 1% lidocaine with 1:100,000 epinephrine. [place] incision was made and a mucoperichondrial flap was elevated to expose the quadrangular cartilage and bony septum. Incision was then made anteriorly on the quadrangular cartilage to elevate the contralateral mucoperichondrial flap. The deviated quadrangular cartilage was excised with a Say knife. At least 1 cm of dorsal and caudal strut of quadrangular was left in place. We resected the deviated bony septum with a Isiah-Desir and a pituitary forceps. After adequate resection of the posterior-inferior bony septum, the mucoperichondrial Flap was laid back in an atomic position.04 chromic was was to suture back the incision We proceeded to the endoscopic sinus procedure starting on the right side. The agger nasi area was injected with 1% lidocaine with 1:100,000 epinephrine. The body of the middle turbinate was injected with 1% lidocaine with 1:100,000 epinephrine. The middle turbinate was gently medialized and the uncinectomy was performed with a pediatric Leonard backbiter and the uncinectomy was completed with a shaver from the inferior-posterior attachment to the superior anterior attachment. The ethmoidectomy was performed by shaving the anterior ethmoid bulla and care was taken to protect the skull base in the lamina papyracea. Maxillary antrum was re-examined with a 30-degree scope. A ball probe was passed into the antrum and was further widened with a backbiter in the anterior- inferior aspect. Agger Nasi cells on right were opened with the shaver and 30-degree scope. Fron sabine sinus ostium was identified with lighted guidewire. Then the balloon was passed into the frontal sinus and the ostia was adequately dilated. Shaver was used to debride excess tissue to clear the frontal recess. Pledgets were placed in the ethmoid cavity. and we proceeded to the left side. and i proceeded to the left side : The agger nasi area was injected with 1% lidocaine with 1:100,000 epinephrine. The body of the middle turbinate was injected with 1% lidocaine with 1:100,000 epinephrine. The middle turbinate was gently medialized and the uncinectomy was performed with a pediatric Leonard backbiter and the uncinectomy was completed with a shaver from the inferior-posterior attachment to the superior anterior attachment. The ethmoidectomy was performed by shaving the anterior ethmoid bulla and care was taken to protect the skull base in the lamina papyracea. Maxillary antrum was re-examined with a 30-degree scope. A ball probe was passed into the antrum and was further widened with a backbiter in the anterior- inferior aspect.left posterior ethmoidectomy was done through the inferio- medial quadrant of basal lamella Agger Nasi cells on left were opened with the shaver and 30-degree scope. Frontal sinus ostium was identified with lighted guidewire. Then the balloon was passed into the frontal sinus and the ostia was adequately dilated. Shaver was used to debride excess tissue to clear the frontal recess. We proceeded with submucosal inferior turbinate reduction, starting on the right side, a stab incision was made anterior mucosa of inferior turbinate. Submucosal pocket was created along the length of the inferior turbinate and the microdebrider blade 2mm thick was introduced anteriorly and into the whole submucosal pocket. Microdebrider was then used to remove the hypertrophied bony parts of anterior turbinate head and soft tissue with the outer layer intact. The residual inferior turbinate was then out fractured using Boies elevator. We proceeded to the left side. A stab incision was made on the anterior mucosa of inferior turbinate. Submucosal pocket was created along the length of the inferior turbinate and the microdebrider blade 2 mm thick was introduced anteriorly and into the whole submucosal pocket. Microdebrider was then used to remove the hypertrophied bony parts of anterior turbinate head and soft tissue with the outer layer intact. The residual inferior turbinate was then out fractured using Boies elevator. Pledgets were removed from ethmoid cavities, PosiSep X BAM Hemostat Dressing sponges were placed in ethmoid cavities bilaterally and infiltrated with a mixture of kenalog and cefazolin. The nose was then suctioned clean and at this point the care of the patient was then transferred to the anesthesiologist where the patient emerged from general anesthesia without complication. Estimated Blood Loss 15 (ml) Packing Yes (merocel packing ,will be removed by the patient the next day after surgery ) Complications No immediate complications Condition Stable Disposition PACU [facility] Billing Surgery - Charge Forward: Surgery Billing
[2024-12-20] MEDS: ceFAZolin 2 GM in SODIUM CHLORIDE 0.9% IV 50 ML 100 ML IVPB (10:24)
[2024-12-20] MEDS: CIPROFLOXACIN HCL 0.3% OP SOLN 2.5 ML BTL 4 DROP EACH EAR (10:54)
[2024-12-20] MEDS: COCAINE HCL (*CRX) 4% TOP SOLN 4 ML VIAL 1 APPLIC TOPICAL (10:56)
[2024-12-20] MEDS: LIDO 1%/EPINEPHRINE 1:100,000 50 ML VIAL 20 ML INFILTRATE (12:25)
[2024-12-20] MEDS: TRIAMCINOLONE ACET INJ 40 MG/ML VIAL IM (12:50)
[2024-12-20] MEDS: fentaNYL CITRATE INJ (*CRX) 100 MCG/2 ML VIAL 25 MCG IV PUSH (14:48)
== END 2024-12-20 16:15 | disposition home or self-care (01) ==
PROVIDERS: PCP Nurse Practitioner; Visit Provider Otolaryngology Otolaryngology/Facial Plastic Surgery
PROC: (CPT 31256; principal; 2024-12-20 10:30)
PROC: (CPT 30520; 2024-12-20 10:30)
PROC: (CPT 31256; 2024-12-20 10:30)
DX: J32.2 Chronic ethmoidal sinusitis (principal); J34.2 Deviated nasal septum; H71.01 Cholesteatoma of attic, right ear; F17.210 Nicotine dependence, cigarettes, uncomplicated; H90.A31 Mixed conductive and sensorineural hearing loss, unilateral, right ear with restricted hearing on the contralateral side
CPT/HCPCS: 31256; 31254; 31296; 61782; 30520; 30140; 69436; J0690; A9270; C1726; J1100; J2004; J2250; J2371; J2405; J2704; J2919; J3010; J3301; J7040; J7050; J7120

== ENCOUNTER 2025-01-02 14:01 | Emergency (ER) | payer MEDICARE, SELFPAY ==
[2025-01-02] VITALS (21 sets, daily range): BP systolic 111–131; BP diastolic 44–87; PULSE 69–76; RESP 15–24; TEMP 36.6; O2SAT 91–100
--- NOTE | ~2025-01-02 | CT_ITS ---
EXAMINATION: CT abdomen pelvis w con DATE: 01/02/2025 16:03 INDICATION: Epigastric abdominal pain TECHNIQUE: Computed tomography (CT) of the abdomen and pelvis was performed with 100 cc Omnipaque 350 intravenous contrast. The dose-length product was 957.85 mGy-cm. Automated exposure control and iterative reconstruction technique were employed. COMPARISON: None. FINDINGS: There is dependent atelectasis. There is a 3 mm right middle lobe nodule, likely benign. Heart size normal. No significant pleural or pericardial effusion. There is thickening of the distal esophagus, suspicious for esophagitis. The liver, spleen, pancreas, adrenal glands are unremarkable. There are bilateral renal cysts. Gallbladder is surgically absent. Nonobstructive bowel gas pattern. Colonic diverticulosis without evidence for diverticulitis. Normal appendix. There is atherosclerosis of the aorta without aneurysm. No lymphadenopathy. No free air or free fluid. Moderate-severe lumbar spondylosis. IMPRESSION: 1. Thickening of the distal esophagus, suspicious for esophagitis. Reviewed, dictated and finalized at location O.
--- NOTE | 2025-01-02 14:23 | ECG_ITS ---
Test Date: 2025-01-02 14:26:12 Measurements Intervals [place] Rate: 77 P: -19 SD: 138 QRS: 24 QRSD: 105 T: 56 QT: 414 QTc: 469 Interpretive Statements SINUS RHYTHM Compared to ECG 12/13/2024 10:54:10 NO SIGNIFICANT CHANGES Electronically Signed On 01-03-2025 15:03:22 CDT by Shiv James M.D.
[2025-01-02 14:40] LABS: Hematocrit 32.1 % (42.0-52.0); Hemoglobin 10.5 g/dL (14.0-18.0); Immature Granulocyte Percent A 2.0 % (0-0.5); Lymphocytes Absolute Auto 2.39 K/mm3 (0.9-3.2); Mean Corpuscular HGB Conc 32.7 g/dl (32-36); Mean Corpuscular Hemoglobin 35.2 pg (26-34); Mean Corpuscular Volume 107.7 fl (80-100); Nucleated Red Blood Cells Absolute Auto 0.000 K/mm3 (0.0-0.012); Nucleated Red Blood Cells Perc 0.0 % (0.0-0.2); Platelet Count Result 272 k/mm3 (150-375); Red Blood Count 2.98 M/mm3 (4.6-6.20); White Blood Count 9.5 K/mm3 (4.5-10.0)
[2025-01-02 14:52] LABS: Alanine Aminotransferase 14 U/L (6-50); Albumin Level 3.7 g/dL (3.5-5.1); Alkaline Phosphatase 69 U/L (38-126); Anion Gap 8 mmol/L (4-12); Aspartate Amino Transferase 20 U/L (17-59); Bilirubin,Total 0.9 mg/dL (0.2-1.3); Blood Urea Nitrogen 13 mg/dL (9-20); Calcium 8.7 mg/dL (8.4-10.2); Carbon Dioxide 27 mmol/L (22-30); Chloride 96 mmol/L (98-107); Estimated CRCL calculation 71 ml/min; Estimated Glomerular Filt Rate > 60; Glucose 101 mg/dL (65-110); Lipase 86 U/L (23-300); Potassium 3.3 mmol/L (3.4-5.0); Sodium 131 mmol/L (137-145); Total Protein 7.1 g/dL (6.3-8.2)
--- NOTE | 2025-01-02 15:08 | ED.ABDPAIN ---
HPI - Abdominal Pain General Chief Complaint: Abdominal Pain Stated Complaint: abd. pain & throwing up blood since Sat Time Seen by Provider: 01/02/25 15:01 History of Present Illness HPI narrative: Pt presents with epigastric and mid abdominal pain for several days. Pt has history of hernia repair surgeries and SBO. Pt als admits to vomiting dark coffe ground looking emesis but not passing black stools. Pt actually has not had BM for 6 days. Related Data Home Medications ?Medication ?Instructions ?Recorded ?Confirmed ?Last Taken ?Type esomeprazole magnesium 40 mg 40 mg PO DAILY 06/21/24 01/02/25 12/19/24 History capsule,delayed release (Nexium) fluticasone propionate 50 1 spray intranasal DAILY PRN nasal 12/12/24 01/02/25 Unknown History mcg/actuation nasal congestion spray,suspension Allergies Allergy/AdvReac Type Severity Reaction Status Date / Time No Known Allergies Allergy Unknown Verified 01/02/25 14:18 Review of Systems Review of Systems: All systems reviewed & are unremarkable except as noted in HPI and below PMFSH Past Medical History Medical History GERD (gastroesophageal reflux disease) Asthma Chronic ethmoidal sinusitis Conductive hearing loss in right ear Mixed hearing loss of right ear Conductive hearing loss, unilateral, right ear with restricted hearing on the contralateral side Bilateral impacted cerumen Bilateral hearing loss Otorrhea of left ear COPD (chronic obstructive pulmonary disease) Hyperlipidemia Hernia BMI 30.0-30.9,adult BMI 29.0-29.9,adult Surgical History Surgical History Status post cervical arthrodesis History of ankle surgery H/O rotator cuff surgery Family History Family History Father Heart disease Mother Sibling Hypertension Heart disease Breast cancer Brain tumor Social History Social History Social History: Caffeine-coffee Smoking packs per day: 1 Smoking cigarettes per day: 20.0 Years smoked: 55 Smoking pack-years: 55.00 Smoking status: Current every day smoker Tobacco type: cigarettes Second hand tobacco smoke exposure: Yes Alcohol intake: current Drinks per week: 12 Alcohol use details: beer Substance use: never Substance use type: does not use Do You Feel Safe in your Home?: Yes Lack of Transportation: No Lack of Food: Never True Current Housing: I Have Housing Concerned About Future Housing: No Difficulty Paying Gas/Electric Bills: No Difficulty Paying for Meds: No Currently Unemployed: No Education: High School Diploma/GED Difficulty w/ Childcare or Family Care: No Living arrangements: with family Additional living arrangements comments: Occupation/Education: retired Additional occupation/education comments: [employer] Gender identity (if verbalized by the patient): Male Spiritual care concerns: No Exam Const: General: healthy appearing and no acute distress Nutritional Appearance: well nourished Orientation/consciousness: patient oriented x3 Limitations: no limitations Chest: Chest palpation & inspection: normal inspection of the chest Resp: Effort & Inspection: normal respiratory effort Auscultation: clear to auscultation bilaterally Cardio: Rate: regular rate Rhythm: regular rhythm GI: GI Palp: Yes Soft to palpation and Yes Tenderness to palpation present (GI) (midline epigastric t navel) Auscultation: Hyperactive bowel sounds present Rectal Exam: normal sphincter tone Other: heme neg stool Skin: General skin exam: normal color Rashes: no rashes Wounds: no wounds Neuro: General: patient oriented x3, moves all extremities and no focal motor deficits Speech: normal speech Extrem: General: normal to inspection and no clubbing, cyanosis or edema Psych: Mental Status: mental status grossly normal Affect: normal affect Attitude: cooperative Course Vital Signs Vital signs: Vital Signs Temperature 97.8 F 01/02/25 14:15 Pulse Rate 76 01/02/25 14:15 Respiratory Rate 17 01/02/25 14:15 Blood Pressure 120/44 L 01/02/25 14:15 Pulse Oximetry 98 01/02/25 14:15 Oxygen Delivery Room Air 01/02/25 14:15 Temperature 97.8 F 01/02/25 14:15 Pulse Rate 70 01/02/25 16:45 Respiratory Rate 16 01/02/25 16:45 Blood Pressure 111/66 01/02/25 16:31 Pulse Oximetry 95 01/02/25 16:45 Oxygen Delivery Room Air 01/02/25 14:24 MDM - Abdominal Pain MDM Narrative Medical decision making narrative: Pt presents with midline epigastric and mid abdominal pain with dark black emesis. Will get CT and labs and treat pain and give protonix. pt heme neg. esophagitis on ct. Pt feels better. Pt would like to go home. Differential Diagnosis Differential diagnosis: Likely abdominal pain, gastroenteritis, pancreatitis, small bowel obstruction and other (upper gi bleed) Lab Data Attestation: I reviewed the patient's lab results. 01/02/25 14:32 01/02/25 14:32 Labs: Lab Results 01/02/25 Range/Units 14:32 WBC 9.5 (4.5-10.0) K/mm3 RBC 2.98 L (4.6-6.20) M/mm3 Hgb 10.5 L (14.0-18.0) g/dL Hct 32.1 L (42.0-52.0) % MCV 107.7 H (80-100) fl MCH 35.2 H (26-34) pg MCHC 32.7 (32-36) g/dl RDW 14.5 (11.5-14.5) % Plt Count 272 (150-375) k/mm3 MPV 10.6 H (7.4-10.4) fl Immature Gran % (Auto) 2.0 H (0-0.5) % Neut % (Auto) 53.1 (45.5-73.1) % Lymph % (Auto) 25.2 (18.3-44.2) % Bailey % (Auto) 18.1 H (2.6-8.5) % Eos % (Auto) 0.5 (0-4.4) % Baso % (Auto) 1.1 (0.2-1.2) % Lymph # (Auto) 2.39 (0.9-3.2) K/mm3 Bailey # (Auto) 1.7 H (0.1-0.6) K/mm3 Eos # (Auto) 0.1 (0-0.3) K/mm3 Baso # (Auto) 0.1 (0.0-0.1) K/mm3 Abs Immat Gran (auto) 0.19 H (0.00-0.031) K/mm3 Absolute Neuts (auto) 5.0 (1.3-6.7) K/mm3 Absolute Nucleated RBC 0.000 (0.0-0.012) K/mm3 Band Neutrophils % Not Reportable Nucleated RBC % 0.0 (0.0-0.2) % Platelet Estimate Adequate (Adequate) Hypochromasia 1+ Macrocytosis 1+ (NORMAL) Schistocytes None seen Sodium 131 L (137-145) mmol/L Potassium 3.3 L (3.4-5.0) mmol/L Chloride 96 L (98-107) mmol/L Carbon Dioxide 27 (22-30) mmol/L Anion Gap 8 (4-12) mmol/L BUN 13 (9-20) mg/dL Creatinine 0.90 (0.7-1.3) mg/dL Estim Creat Clear Calc 71 ml/min Estimated GFR > 60 (59 - ) Glucose 101 (65-110) mg/dL Calcium 8.7 (8.4-10.2) mg/dL Total Bilirubin 0.9 (0.2-1.3) mg/dL AST 20 (17-59) U/L ALT 14 (6-50) U/L Alkaline Phosphatase 69 (38-126) U/L Total Protein 7.1 (6.3-8.2) g/dL Albumin 3.7 (3.5-5.1) g/dL Lipase 86 (23-300) U/L Blood Type O Positive Antibody Screen Negative Imaging Data Attestation: I personally reviewed and interpreted this imaging study as follows: My impression: agree with radiology assessment Radiologist's impression: ITS Impressions Abdomen/Pelvis CT 01/02/25 16:05 IMPRESSION: 1. Thickening of the distal esophagus, suspicious for esophagitis. Discharge Plan Discharge Clinical Impression: Esophagitis Patient Disposition: Home Condition: Improved Instructions: Antibiotic Form, Esophagitis (ED) Patient Language: Urdu Prescriptions: New pantoprazole [Protonix] 20 mg tablet,delayed release (DR/EC) 20 mg PO HS Qty: 30 0RF No Action esomeprazole magnesium [Nexium] 40 mg capsule,delayed release(DR/EC) 40 mg PO DAILY gabapentin 600 mg tablet 600 mg PO BID Qty: 180 3RF fluticasone propionate 50 mcg/actuation spray,suspension 1 spray intranasal DAILY PRN (Reason: nasal congestion) Rx Instructions: administer into each nostril acetaminophen-codeine 300-15 mg tablet 1 tablet PO Q8H PRN (Reason: pain (scale score 7-10)) Qty: 15 0RF Rx Instructions: to be use for sever pain only for moderate to mild pain use regular Tylenol triamcinolone acetonide 0.1 % cream 1 applic topical BID PRN (Reason: rash) Qty: 80 0RF albuterol sulfate 90 mcg/actuation HFA aerosol inhaler 1 inh INHALATION QID PRN (Reason: Shortness Of Breath) Qty: 8.5 1RF clonazepam 0.5 mg tablet 0.5 mg PO BID PRN (Reason: anxiety) Qty: 60 2RF Rx Instructions: administer 30 minutes before bedtime Follow-up/Referrals: Emanuel Chirinos MD [Physician, Gastroenterology] Guillermo Hernández DO [Primary Care Provider, Internal Medicine]
[2025-01-02] MEDS: ONDANSETRON INJ 4 MG/2 ML VIAL IV PUSH (15:36)
[2025-01-02] MEDS: fentaNYL CITRATE INJ (*CRX) 100 MCG/2 ML VIAL 50 MCG IV PUSH (15:36)
[2025-01-02] MEDS: PANTOPRAZOLE SODIUM IV 40 MG VIAL IV PUSH (15:36)
--- NOTE | 2025-01-02 15:38 | PC.NURSE ---
patient unable to provide a urine sample at this time, was educated that we need a sample and if he can't provide one we may need to use a straight cath
[2025-01-02 15:49] LABS: Hypochromasia 1+; Macrocytosis 1+ (NORMAL); Schistocytes None Seen
--- OUTSIDE RECORDS SUMMARY | 2025-01-02 15:49 | XMS_ITS | Clinical Summary ---
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 RW T: Report ID: [id number] Reading Location: [id number] Procedure Note Dada Bernabe MD - 01/19/2023 [...] Dada Bernabe M.D. RW T: Report ID: [id number] Reading Location: [place] [address] PROCEDURES Final Resu lt from Last 3 Months or Most Recently Relevant to Health Maintenance Insurance MEDICARE MEDICARE Care Teams Bulb Tester Relationship Specialty Start Date End Date Geovanna Mason MD [address] [address] PCP - General Family Medicine 01/18/23
--- OUTSIDE RECORDS SUMMARY | 2025-01-02 15:49 | XMS_ITS | Clinical Summary ---
Author Organization [facility] Address [address] [place] [id number] Care Team Providers Care Prosthetic Technician Name Role Phone Unavailable Primary Care Provider [...] Vaccines (1 of 2) 2004 COVID-19 Vaccine (1 - 2023-2 5 season) 2024 RSV Immunization or 60+ Years (1 - [...]
--- OUTSIDE RECORDS SUMMARY | 2025-01-02 16:37 | XMS_ITS | Clinical Summary ---
Author Organization [facility] Address [address] [place] [address] Care Team Providers Care Svp Marketing Name Role Phone Unavailable Primary Care Provider [...]
--- OUTSIDE RECORDS SUMMARY | 2025-01-02 16:37 | XMS_ITS | Clinical Summary ---
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 RW T: Report ID: [id number] Reading Location: [id number] Procedure Note Dada Bernabe MD - 01/19/2023 [...] Dada Bernabe M.D. RW T: Report ID: [id number] Reading Location: [place] [address] PROCEDURES Final Resu lt from Last 3 Months or Most Recently Relevant to Health Maintenance Insurance MEDICARE MEDICARE Care Teams Ceramics Teacher Relationship Specialty Start Date End Date Geovanna Mason MD [address] [address] PCP - General Family Medicine 01/18/23
== END 2025-01-02 17:09 | disposition home or self-care (01) ==
PROVIDERS: Emergency Provider Emergency Medicine; PCP Internal Medicine
DX: K20.90 Esophagitis, unspecified without bleeding (principal); J44.9 Chronic obstructive pulmonary disease, unspecified; E78.5 Hyperlipidemia, unspecified; F17.210 Nicotine dependence, cigarettes, uncomplicated
CPT/HCPCS: 36415; 74177; 80053; 83690; 85025; 86850; 86900; 86901; 93005; 96374; 96375; 99284; J2405; J2470; J3010; Q9967

== ENCOUNTER 2025-01-20 13:45 | Outpatient (CLI) | payer MEDICARE, SELFPAY ==
--- NOTE | ~2025-01-20 | MR_ITS ---
EXAMINATION: MR lumbar spine wo con DATE: 01/20/2025 14:26 INDICATION: Low back pain. Spinal stenosis, lumbar region with neurogenic claudication. TECHNIQUE: Magnetic resonance imaging (MRI) of the lumbar spine was performed without intravenous contrast. Sequences included sagittal T2-weighted FSE, sagittal T2-weighted FS FSE, sagittal T1-weighted FSE, and axial T2-weighted FSE. COMPARISON: Lumbar spine MRI 01/31/2024 FINDINGS: L5 is a transitional segment. There is 4 mm retrolisthesis of L3 on L4. Vertebral body heights are normal. There is mildly decreased disc height at L1-L2 and L2-L3 and severely decreased disc height at L3-L4, L4-L5, and L5-S1. There is interbody fusion at L5-S1. The distal spinal cord signal intensity is normal. The conus medullaris is at T12. The following disc levels are specifically discussed: L1-L2: The disc is bulging and has an annular fissure. There is mild bilateral facet joint osteoarthritis. There is mild right and moderate left neural foraminal stenosis. There is mild central canal stenosis. L2-L3: The disc is bulging and has an annular fissure. There is severe bilateral facet joint osteoarthritis. There is mild bilateral neural foraminal stenosis. There is mild central canal stenosis. L3-L4: The disc is bulging and has an annular fissure. There is severe bilateral facet joint osteoarthritis. There is hypertrophy of the ligamentum flavum. There is moderate bilateral neural foraminal stenosis. There is mild central canal stenosis. L4-L5: The disc is bulging and has an annular fissure. There is severe bilateral facet joint osteoarthritis. There is severe bilateral neural foraminal stenosis. There is mild central canal stenosis. L5-S1: The disc does not extend beyond the endplate margin. There is mild bilateral facet joint hypertrophy. There is no neural foraminal stenosis. There is no central canal stenosis. IMPRESSION: 1. Severe lumbar spondylosis, stable from 01/31/2024. Reviewed, dictated and finalized at location E.
== END 2025-01-20 13:46 | disposition home or self-care (01) ==
LOC: MICIMG 13:45
PROVIDERS: PCP Internal Medicine; Visit Provider Neurological Surgery
DX: M47.816 Spondylosis without myelopathy or radiculopathy, lumbar region (principal); M48.062 Spinal stenosis, lumbar region with neurogenic claudication
CPT/HCPCS: 72148

== ENCOUNTER 2025-03-12 09:47 | Outpatient (CLI) | payer MEDICARE, SELFPAY ==
--- NOTE | ~2025-03-12 | XR_ITS ---
EXAMINATION: XR chest 2V DATE: 03/12/2025 11:16 INDICATION: Spinal stenosis. TECHNIQUE: PA and lateral views of the chest were obtained. COMPARISON: Chest radiograph dated 05/06/2024 FINDINGS: Mild increased and airspace opacities in the posterior right lower lung zone which could represent mild pulmonary edema, pneumonia, atelectasis or some combination thereof. Remainder of the lungs are clear. No pleural effusion or pneumothorax. The cardiomediastinal silhouette is normal. Change of prior lower cervical posterior spinal fusion with bilateral vertical marlin and lateral mass screw fixation involving at least C5-C7. IMPRESSION: 1. Opacities in the posterior right lower lung zone which could represent mild pulmonary edema, pneumonia, atelectasis or some combination thereof. Reviewed, dictated and finalized at location A. [facility]
[2025-03-12 11:35] LABS: Hematocrit 34.8 % (42.0-52.0); Hemoglobin 11.1 g/dL (14.0-18.0); Mean Corpuscular HGB Conc 31.9 g/dl (32-36); Mean Corpuscular Hemoglobin 32.8 pg (26-34); Mean Corpuscular Volume 103.0 fl (80-100); Platelet Count Result 308 k/mm3 (150-375); Red Blood Count 3.38 M/mm3 (4.6-6.20); White Blood Count 8.4 K/mm3 (4.5-10.0)
[2025-03-12 11:36] LABS: Add Urine Microscopic? NO; Appearance Urine Clear (Clear); Glucose Urine UA Negative (Negative); Leukocyte Esterase Ur Negative LEU/UL (Negative); Nitrate Urine Negative (Negative); Specific Grav Ur 1.017 (1.001-1.035)
[2025-03-12 11:48] LABS: INR 1.0; Prothrombin Time 13.0 Seconds (11.1-14.7)
[2025-03-12 11:49] LABS: Partial Thromboplastin Time 48.5 Seconds (22.3-36.8)
[2025-03-12 11:55] LABS: Anion Gap 5 mmol/L (4-12); Blood Urea Nitrogen 16 mg/dL (9-20); Calcium 9.1 mg/dL (8.4-10.2); Carbon Dioxide 28 mmol/L (22-30); Chloride 101 mmol/L (98-107); Estimated Glomerular Filt Rate > 60; Glucose 95 mg/dL (65-110); Potassium 4.2 mmol/L (3.4-5.0); Sodium 134 mmol/L (137-145)
--- OUTSIDE RECORDS SUMMARY | 2025-03-12 13:27 | XMS_ITS | Clinical Summary ---
Author Organization [facility] Address [address] [place] [address] Care Team Providers Care Loss Prevention Lead Name Role Phone Unknown, Provider Primary Care Provider Unavaila ble Source Comments [facility],non-owned Affiliates and Associated Physician Practices is amultiple site organization consisting of ambulatory clinics and hospital sitesin [place], [place], [place] and [place]. This disclosure is being madepursuant to the Care Everywhere program and may not contain all information available regarding this patient. 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 Gender Identity Not on file Sexual Orientation [...] 12/04/2019 SCREENING FOR DIABETES 12/06/2019 4, 01/13/2014 DEPRESSION SCREENING 04/24/2024 MEDICARE AWV CALENDAR YEAR 2024 COVID-19 VACCINE (1 - 2024-2 6 season) 2024 INFLUENZA VACCINE (#1) 2024 Respiratory Syncytial [...] HOSPITAL Anion Gap 12 8 - 18 [facility] BUN/Creatinine Ratio 14 7 - 23 YALE [...] LAB - CHEMISTRY ORDERABLES F inal Result [address] [phone] from Last 3 Months or Most Recently Relevant to Health Maintenance Insurance SELF PAY NO INSURANCE Member Subscriber Plan / Payer (Ef fective for All Dates) Name:Perry Corona Member ID:Not on file Relation to Subscriber:Self Name:Perry Corona Subscriber ID:Not on file Payer ID:Not on file Group ID:Not on file Type:Self Pay Address: [place], [place] [employer] MED[employer]ARE ADV SELF PAY NO INSURANCE Member Subscriber Plan / Payer (Ef fective for All Dates) Name:Perry Corona Member ID:Not on file Relation to Subscriber:Not on file Name:PERRY CORONA Subscriber ID:Not on file (Home) Address: [place] [address] Payer ID:Not on file Group ID:Not on file Type:Self Pay Address: [place], [place] Care Teams Loss Prevention Lead Relationship Specialty Start Date End Date Unknown, Provider PCP - General 12/06/19
--- OUTSIDE RECORDS SUMMARY | 2025-03-12 13:27 | XMS_ITS | Clinical Summary ---
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 RW T: Report ID: [id number] Reading Location: [id number] Procedure Note Dada Bernabe MD - 01/19/2023 [...] Dada Bernabe M.D. RW T: Report ID: [id number] Reading Location: [place] [address] [address] PROCEDURES Final Resu lt from Last 3 Months or Most Recently Relevant to Health Maintenance Insurance MEDICARE MEDICARE Care Teams Educational Technologist Relationship Specialty Start Date End Date Geovanna Mason MD [address] [address] PCP - General Family Medicine 01/18/23
== END 2025-03-12 09:48 | disposition home or self-care (01) ==
LOC: ANHSURGERY 09:51
PROVIDERS: PCP Nurse Practitioner; Visit Provider Neurological Surgery
DX: M48.062 Spinal stenosis, lumbar region with neurogenic claudication (principal); Z01.818 Encounter for other preprocedural examination
CPT/HCPCS: 36415; 71046; 80048; 81003; 85027; 85610; 85730

== ENCOUNTER 2025-03-17 02:08 | Day surgery (SDC) | payer MEDICARE, SELFPAY ==
[2025-03-03 14:45] VITALS: BMI 31.0
--- OUTSIDE RECORDS SUMMARY | 2025-03-17 02:11 | XMS_ITS | Data Portability ---
Author Organization [place] [employer], Main Office Address [address] [place] [address] Assessment No assessment recorded. Plan of Treatment Reminders Order Date Submit Date Provider Last Modified By Organization Details Last Modified Time Details Appointments None recorded. Lab None recorded. Referral neurologica l surgeon referral 2022 023 [email or web address] Coty Zhou MD, [address], [address], [place], [address], 3 16:59:05 otolaryngol ogist referral - Please call pt to schedule appt. Thank you 2022 023 [email or web address] 3 Jose Vazquez MD, [address] [facility], [address], [place], [address], 3 14:07:24 Procedures None recorded. Surgeries None recorded. Imaging MRI, cervical spine, w/o contrast - *Please call pt to schedule* 2022 023 [facility] (Radiology), [address] [place], [address], 3 12:44:03 MRI, lumbar spine, w/o contrast - *Please call pt to schedule* 2022 023 [facility] (Radiology), [address] [place], [address], 3 13:19:19 XR, cervical spine 2022 023 [email or web address] [facility] (Imaging), [address] [place], [address], 3 09:57:01 XR, lumbar spine 2022 023 [email or web address] [facility] ([facility]), [address], [place], [address], 3 09:57:01 Medication Orders prednisone 20 mg tablet 2023 024 [facility] [address], [address] [place] [address], [address], 4 15:06:10 prednisone 20 mg tablet [address], [address] [place] [address], [address], 3 17:38:30 hydrocodone 10 mg-acetamin ophen 325 mg tablet 2022 023 [facility] [address], [address] [place] [address], [address], 3 15:20:37 prednisone 20 mg tablet [address], [address] [place] [address], [address], 3 17:38:30 hydrocodone 5 mg-acetamin ophen 325 mg tablet [address], [address] [place] [address], [address], 3 15:14:43 meloxicam 15 mg tablet [address], [address] [place] [address], [address], 3 15:16:06 hydrocodone 5 mg-acetamin ophen 325 mg tablet [address], [address] [place] [address], [address], 3 15:14:43 prednisone 20 mg tablet 2022 023 john paul [facility] [address], [address] [place], [address], 3 17:38:30 methocarbam ol 750 mg tablet 2022 023 [facility], [address] [place], [address], 3 16:55:37 Patient TargetsNo targets recorded. Patient InstructionsNo instructions recorded. Reason for Referral [employer] Referral fo r Otalgia of right ear Please call pt to schedule appt. Thank you Referring Physician: Brandi Gregg [facility], Encounter Date: 06/28/2022 Neurological Surgeon Vidal carter for Degeneration of cervical intervertebral disc Referring Physician: José Miguel Mason, [facility], Encounter Date: 11/22/2022 Results Created Date Observation Date Name Description Value Unit Range Abnormal Flag Note LastModifiedBy Organization Detail LastModifiedTime 01/07/2001/06/2022 COLOG UARD cologuard result cancel led - order d not applic able Not Available [facility] [address], [place], [address], 01/06/2022 08:17:44 12/01/1911/30/2022 MRI, cervi quinn spine , w/o contr ast [facility] [place] [id number] [phone] Patien t Name: MAYANK CHANG Access ion #: [id number] Sex: M : 1955 6 Dictat ed By: Beatriz Arvizu [facility] Physic zaira: KRUPA PARRISH [facility] Physic zaira: KRUPA PARRISH Exam Date: 2022 08:55 AM Exam Name: MRI C SPINE WO Admitt ing Diagno sis(es ): CLINIC AL INFORM ATION: Severe neck pain. Worsen ing sympto ms over the last 6 months . Numbne ss and tingli ng in the hands and finger s. TECHNI QUE: Multis equenc e multip lanar MRI images of the cervic al spine were obtain ed withou t contra st. COMPAR ABDIAS: No prior studie s. FINDIN GS: Bones: Straig htenin g of the normal cervic al lordos is. 3 mm ayse listhe sis of C4 on C5. Minima l retrol isthes is of C5 on C6 and minima l ayse listhe sis of C7 on T1. Verteb ral body height s are mainta ined. Senior It Specialist ior elemen ts are intact . No acute fractu re. No focal suspic ious marrow signal abnorm ality. Spinal cord: T2/STI R hyperi ntense signal in the spinal cord at the C4-C5 level, likely due to myelop athy given the severe spinal canal stenos is at this level. Parasp inal soft tissue s: Parasp inal and prever tebral soft tissue s are unrema rkable . Other: Incide ntal note is made of a superf icial T1 and T2 hypoin tense mass adjace nt to the skin surfac e in the trapper bird ior subcut aneous tissue s measur ing up to 1.4 cm, likely sebace ous cyst. Cervic al disc levels : C2-C3: Disc desicc ation with modera te to severe disc space narrow ing. 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 Facet and uncina te hypert rophy with modera te to severe left and modera te right neural forami nal stenos es. C3-C4: Disc desicc ation with diffus e disc bulge superi mposed on a degree of congen ital spinal canal narrow ing. Modera te spinal canal stenos is with the disc bulge closel y approx imatin g the ventra l aspect of the thecal sac. There is partia l efface ment of the left latera l recess by the disc bulge. Severe left neural forami nal stenos is and modera te right neural forami nal stenos is Page 1 [facility] [address] [facility], [place] [address] [phone] Patien t Name: MAYANK CHANG ion #: [id number] Sex: M : 1955 6 Dictat ed By: Beatriz arnold Attend ing Physic zaira: KATY KELLEY Orderjesús ng Physic zaira: KRUPA PARRISH Exam Date: 2022 08:55 AM Exam Name: MRI C SPINE WO Admitt ing Diagno sis(es ): second siria to facet and uncina te hypert rophy. C4-C5: Disc desicc ation with diffus e disc bulge superi mposed on a degree of congen ital spinal canal stenos is causin g severe spinal canal stenos is, abutti ng and indent ing the ventra l aspect of the spinal cord. There is infold ing of the ligame ntum flavum , contri buting to the spinal canal stenos is, abutti ng the dorsal aspect of the spinal cord. There is efface ment of the latera l recess es bilate rally. Severe bilate ral neural forami nal stenos es, left greate r than right. C5-C6: Disc desicc ation with modera te to severe disc space narrow ing. Diffus e disc bulge superi mposed on a degree of congen ital spinal canal narrow ing causin g modera te to severe spinal canal stenos is, abutti ng the ventra l aspect of the spinal cord and effaci ng the latera l recess es. Facet and uncina te hypert rophy with severe bilate ral neural forami nal stenos es, left slight ly greate r than right. C6-C7: Disc desicc ation with modera te to severe disc space narrow ing and diffus e disc bulge and infold ing of the ligame ntum flavum contri buting to modera te spinal canal stenos is. The disc bulge abuts the ventra l aspect of the spinal cord and efface s the latera l recess es bilate rally. Facet and uncina te hypert rophy with modera te to severe bilate ral neural forami nal stenos es, right greate r than left. C7-T1: Disc desicc ation. No signif icant spinal canal stenos is. Facet and uncina te hypert rophy with modera te to severe left neural forami nal stenos is. IMPRES LONNIE: 1. Multil evel degene rative disc diseas e and facet/ uncina te diseas e with associ ated spinal canal, subart icular , and neural forami nal stenos es as detail ed above. 2. Likely myelop athy at the C4-C5 level second siria to severe spinal canal stenos is at this level. 3. Straig htenin g of the normal cervic al lordos is and spondy lolist heses as descri bed above. Electr onical ly Signed by: Beatriz arnold at 2022 11:41: 49 AM Page 3 [email or web address] [facility] (Imaging) [address] [place], [address], 12/29/2022 15:22:38 12/01/19 23 11/30/2022 MRI, lumba r spine , w/o contr ast [facility] [address] [place] [id number] [phone] Patien t Name: MAYANK CHANG Access ion #: [id number] Sex: M : 1955 6 Dictat ed By: Beatriz arnold Attend ing Physic zaira: KRUPA PARRISH [facility] Physic zaira: KRUPA PARRISH Exam Date: 2022 08:55 AM Exam Name: MRI L SPINE WO Admitt ing Diagno sis(es ): CLINIC AL INFORM ATION: Severe lower back pain. Diffic ulty walkin g. Weakne ss in the left leg. TECHNI QUINN INFORM ATION: Multis equenc e multip lanar MRI images of the lumbar spine were obtain ed withou t contra st. COMPAR ABDIAS: None. INTERP RETATI ON: Minima l retrol isthes es of T12 on L1, L1 on L2, and L3 on L4. Verteb ral body height s are mainta ined. Senior It Specialist ior elemen ts are intact . No focal suspic ious marrow signal abnorm ality. Visual ized spinal cord and cauda equina are within normal limits . The conus medull tan is approp riate in signal at the T12-L1 level. Small Tarlov cysts are noted at the S1 and S2 levels . Parasp inal soft tissue s are unrema rkable . Right renal cysts incide ntally noted. T12-L1 : Disc desicc ation with diffus e disc bulge mildly indent ing the ventra l aspect of the thecal sac causin g a mild degree of spinal canal stenos is. Facet hypert rophy with mild bilate ral neural forami nal stenos es. L1-L2: Disc desicc ation with mild disc bulge and concom itant promin ence of the trapper bird ior epidur al fat contri buting to mild to modera te spinal canal stenos is. Facet hypert rophy and encroa chment of the left neural forame n by the disc bulge contri bute to modera te left neural forami nal stenos is. Mild to modera te right neural forami nal stenos is. L2-L3: Disc desicc ation with diffus e disc bulge and promin ence of the trapper bird ior epidur al fat contri buting to mild spinal canal stenos is. Facet hypert rophy with modera te bilate ral neural forami nal stenos es. L3-L4: Disc desicc ation with modera te to severe disc space narrow ing and diffus e disc bulge with concom itant facet hypert rophy and infold ing of the Page [address] [facility] [address] [address] Patien t Name: MAYANK CHANG Access ion #: [id number] Sex: M : 1955 6 Dictat ed By: Beatriz arnold Attend ing Physic zaira: KATY KELLEY [facility] Physic zaira: KRUPA PARRISH Exam Date: 2022 08:55 AM Exam Name: MRI L SPINE WO Admitt ing Diagno sis(es ): ligame ntum flavum contri buting to modera te to severe spinal canal stenos is with crowdi ng of the cauda equina . Severe bilate ral neural forami nal stenos es. L4-L5: Disc desicc ation with modera te to severe disc space narrow ing. Minima l disc bulge mildly indent ing the ventra l aspect of the thecal sac. No signif icant spinal canal stenos is. Severe bilate ral neural forami nal stenos es second siria to facet hypert rophy. L5-S1: Disc desicc ation with severe disc space narrow ing. No signif icant spinal canal stenos is or neural forami nal stenos is. IMPRES LONNIE: 1. Degene rative disc diseas e and facet diseas e in the lumbar spine with associ ated spinal canal and neural forami nal stenos es as detail ed above. 2. Multil evel minima l retrol isthes es. 3. Additi onal findin gs as detail ed above. Electr onical ly Signed by: Beatriz arnold at 2022 12:16: 57 PM Page [address] ([facility]) [address] [place], [address], 12/29/2022 15:22:37 03/01/20 23 03/01/2023 [email or web address] No observ ation record ed. [email or web address] [address], [address], 04/12/2023 12:35:53 04/11/20 23 04/11/2023 XR, cervi quinn spine No observ ation record ed. [address], [address], 04/12/2023 12:35:38 07/12/19 24 07/12/2023 XR, cervi quinn spine No observ ation record ed. [email or web address], [address], 09/07/2023 08:57:57 Result Notes Documentation Provider Name and Address Organization Details Recorded Time Mri, Lumbar Spine, W/o Contrast : [facility] [address] [place] [address] Patient Name: CARLOS BLUE Sex: M : 1955 Dictated By: Rusty Puga Attending Physician: JOSÉ MIGUEL MASON Ordering Physician: JOSÉ MIGUEL MASON Exam Date: 11/30/2022 08:55 AM Exam Name: MRI L SPINE WO Admitting Diagnosis(es): CLINICAL INFORMATION: Severe lower back pain. Difficulty walking. Weakness in the left leg. TECHNICAL INFORMATION: Multisequence multiplanar MRI images of the lumbar spine were obtained without contrast. COMPARISON: None. INTERPRETATION: Minimal retrolistheses of T12 on L1, L1 on L2, and L3 on L4. Vertebral body heights are maintained. Posterior elements are intact. No focal suspicious marrow signal abnormality. Visualized spinal cord and cauda equina are within normal limits. The conus medullaris is appropriate in signal at the T12-L1 level. Small Tarlov cysts are noted at the S1 and S2 levels. Paraspinal soft tissues are unremarkable. Right renal cysts incidentally noted. T12-L1: Disc desiccation with diffuse disc bulge mildly indenting the ventral aspect of the thecal sac causing a mild degree of spinal canal stenosis. Facet hypertrophy with mild bilateral neural foraminal stenoses. L1-L2: Disc desiccation with mild disc bulge and concomitant prominence of the posterior epidural fat contributing to mild to moderate spinal canal stenosis. Facet hypertrophy and encroachment of the left neural foramen by the disc bulge contribute to moderate left neural foraminal stenosis. Mild to moderate right neural foraminal stenosis. L2-L3: Disc desiccation with diffuse disc bulge and prominence of the posterior epidural fat contributing to mild spinal canal stenosis. Facet hypertrophy with moderate bilateral neural foraminal stenoses. L3-L4: Disc desiccation with moderate to severe disc space narrowing and diffuse disc bulge with concomitant facet hypertrophy and infolding of the Page 1 [facility] [address] [place] [address] Patient Name: CARLOS BLUE Sex: M : 1955 Dictated By: Rusty Puga Attending Physician: DESTINEY VALDEZ Ordering Physician: JOSÉ MIGUEL MASON Exam Date: 11/30/2022 08:55 AM Exam Name: MRI L SPINE WO Admitting Diagnosis(es): ligamentum flavum contributing to moderate to severe spinal canal stenosis with crowding of the cauda equina. Severe bilateral neural foraminal stenoses. L4-L5: Disc desiccation with moderate to severe disc space narrowing. Minimal disc bulge mildly indenting the ventral aspect of the thecal sac. No significant spinal canal stenosis. Severe bilateral neural foraminal stenoses secondary to facet hypertrophy. L5-S1: Disc desiccation with severe disc space narrowing. No significant spinal canal stenosis or neural foraminal stenosis. IMPRESSION: 1. 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 2. Multilevel minimal retrolistheses. 3. Additional findings as detailed above. Page 2 José Miguel Mason MD [address], [address], [place] [facility] [employer] [facility] 12/29/2022 15:22:37 Mri, Cervical Spine, W/o Contrast : [facility] [address] [place] [address] Patient Name: CARLOS BLUE Sex: M : 1955 Dictated By: Rusty Puga Attending Physician: JOSÉ MIGUEL MASON Ordering Physician: JOSÉ MIGUEL MASON Exam Date: 11/30/2022 08:55 AM Exam Name: MRI C SPINE WO Admitting Diagnosis(es): CLINICAL INFORMATION: Severe neck pain. Worsening symptoms over the last 6 months. Numbness and tingling in the hands and fingers. TECHNIQUE: Multisequence multiplanar MRI images of the cervical spine were obtained without contrast. COMPARISON: No prior studies. FINDINGS: Bones: Straightening of the normal cervical lordosis. 3 mm anterolisthesis of C4 on C5. Minimal retrolisthesis of C5 on C6 and minimal anterolisthesis of C7 on T1. Vertebral body heights are maintained. Posterior elements are intact. No acute fracture. No focal suspicious marrow signal abnormality. Spinal cord: T2/STIR hyperintense signal in the spinal cord at the C4-C5 level, likely due to myelopathy given the severe spinal canal stenosis at this level. Paraspinal soft tissues: Paraspinal and prevertebral soft tissues are unremarkable. Other: Incidental note is made of a superficial T1 and T2 hypointense mass adjacent to the skin surface in the posterior subcutaneous tissues measuring up to 1.4 cm, likely sebaceous cyst. Cervical disc levels: C2-C3: Disc desiccation with moderate to severe disc space narrowing. There is a moderate degree of congenital spinal canal narrowing. Facet and uncinate hypertrophy with moderate to severe left and moderate right neural foraminal stenoses. C3-C4: Disc desiccation with diffuse disc bulge superimposed on a degree of congenital spinal canal narrowing. Moderate spinal canal stenosis with the disc bulge closely approximating the ventral aspect of the thecal sac. There is partial effacement of the left lateral recess by the disc bulge. Severe left neural foraminal stenosis and moderate right neural foraminal stenosis [address] [address] Patient Name: CARLOS BLUE Sex: M : 1955 Dictated By: Rusty Puga Attending Physician: DESTINEY VALDEZ Ordering Physician: JOSÉ MIGUEL MASON Exam Date: 11/30/2022 08:55 AM Exam Name: MRI C SPINE WO Admitting Diagnosis(es): secondary to facet and uncinate hypertrophy. C4-C5: Disc desiccation with diffuse disc bulge superimposed on a degree of congenital spinal canal stenosis causing severe spinal canal stenosis, abutting and indenting the ventral aspect of the spinal cord. There is infolding of the ligamentum flavum, contributing to the spinal canal stenosis, abutting the dorsal aspect of the spinal cord. There is effacement of the lateral recesses bilaterally. Severe bilateral neural foraminal stenoses, left greater than right. C5-C6: Disc desiccation with moderate to severe disc space narrowing. Diffuse disc bulge superimposed on a degree of congenital spinal canal narrowing causing moderate to severe spinal canal stenosis, abutting the ventral aspect of the spinal cord and effacing the lateral recesses. Facet and uncinate hypertrophy with severe bilateral neural foraminal stenoses, left slightly greater than right. C6-C7: Disc desiccation with moderate to severe disc space narrowing and diffuse disc bulge and infolding of the ligamentum flavum contributing to moderate spinal canal stenosis. The disc bulge abuts the ventral aspect of the spinal cord and effaces the lateral recesses bilaterally. Facet and uncinate hypertrophy with moderate to severe bilateral neural foraminal stenoses, right greater than left. C7-T1: Disc desiccation. No significant spinal canal stenosis. Facet and uncinate hypertrophy with moderate to severe left neural foraminal stenosis. IMPRESSION: 1. Multilevel degenerative disc disease and facet/uncinate disease with associated spinal canal, subarticular, and neural foraminal stenoses as detailed above. 2. Likely myelopathy at the C4-C5 level secondary to severe spinal canal stenosis at this level. 3. Straightening of the normal cervical lordosis and spondylolistheses as described above. Page 3 José Miguel Mason MD [address] [place] [address], [address], [facility] [employer] 12/29/2022 15:22:38 Problems Name Problem SNOMED Code Status Onset Date Resolution Date Notes Provider Name and Address Organization Details Recorded Time Insomnia 219110400 Active Not Available [facility] 3 05:58:42 Anxiety disorder 198090482 Active Not Available [facility] 3 05:58:42 Mass of neck 028348953 Active Not Available [facility] 3 05:58:42 Depressiv e disorder 25049682 Active Not Available [facility] 3 05:58:42 Migraine 30857811 Active Not Available [employer] 3 05:58:42 Cervical radiculop athy 74225530 Active Not Available [facility] 3 05:58:42 Carpal tunnel syndrome 15045335 Completed Not Available [facility] 3 05:58:42 Displacem ent of intervert ebral disc without myelopath y 92258052 Active Not Available [facility] 3 05:58:42 Herniatio n of nucleus pulposus 47533620 Active Not Available [facility] 3 05:58:42 Kidney stone 46138898 Active Not Available [facility] 3 05:58:42 Chronic pain syndrome 899536774 Active 2017 Not Available [facility] 3 05:58:42 Asthma 124885587 Active 2017 Not Available [facility] 3 05:58:42 Chronic obstructi ve pulmonary disease 68053578 Active 2020 Not Available [facility] 3 05:58:41 Coronary arteriosc lerosis 65333469 Active 2020 Not Available [facility] 3 05:58:42 Partial thickness rotator cuff tear 095551818 Active 2020 Not Available [facility] 3 05:58:42 Syncope 894588173 Active 2022 MICHELLE Amos [address], [address], [place], [address] , [employer] 3 12:32:09 Otalgia of right ear 0733792012 Active 2022 MICHELLE Amos [address], [address], [place], [address] , [employer] 3 16:50:49 Degenerat ion of lumbar intervert ebral disc 88819542 Active 2022 MICHELLE Amos [address], [address], [place], [address] , [employer] 3 16:55:02 Degenerat ion of cervical intervert ebral disc 69223697 Active 2022 MICHELLE Amos [address], [address], [place], [address] , [employer] 3 09:14:53 Low back pain 169427278 Active 2022 José Miguel Mason MD [address], [address], [place], [address] , [facility] [employer] [facility] 3 12:06:05 Neck pain 02477681 Active 2022 José Miguel Mason MD [address] [place] [address], [place], [address] , [facility] [employer] [facility] 3 12:06:12 Pain of left shoulder joint [id number] 512809 Active 2023 GALILEO Harrison [address] [facility] [address], [place], [address] , [facility] [employer] [facility] 4 14:58:14 Problem Notes None recorded. Medical Equipment None Reported. Allergies No known drug allergies Medications Name Sig Start Date Stop Date Status Note LastModified by Organization Details LastModified Time cyclobenza vipul 10 mg tablet TAKE 1 TABLET BY MOUTH EVERY 8 HOURS FOR 14 DAYS active Not Available Not Available No t Available amoxicilli n 500 mg capsule Take 1 capsule 3 times a day by oral route for 10 days. 02/17 completed Not Available Not Available Not Available Augmentin 875 mg-125 mg tablet Take 1 tablet every 12 hours by oral route. 06/26 completed Not Available Not Available Not Available prednisone 10 mg tablet TAKE 1 TABLET BY MOUTH THREE TIMES DAILY FOR 3 DAYS AND THEN 1 TWICE DAILY FOR 2 DAYS AND THEN 1 ONCE DAILY FOR 1 DAY 06/21 completed Not Available Not Available Not Available gabapentin 600 mg tablet TAKE 1 TABLET BY MOUTH TWICE DAILY active Not Available Not Available No t Available citalopram 40 mg tablet Take 1 tablet by mouth once daily active Not Available Not Available No t Available tizanidine 4 mg tablet TAKE 1 TABLET BY MOUTH EVERY 8 HOURS NEEDED FOR MUSCLE SPASM active Not Available Not Available No t Available benzonatat e 200 mg capsule Take 1 capsule 3 times a day by oral route. 01/06 completed Not Available Not Available Not Available hydrocodon e 5 mg-acetami nophen 325 mg tablet TAKE 1 TABLET BY MOUTH EVERY 8 HOURS NEEDED 12/29 completed Not Available Not Available Not Available meloxicam 15 mg tablet TAKE 1 TABLET BY MOUTH ONCE DAILY 12/29 completed Not Available Not Available Not Available prednisone 20 mg tablet TAKE 3 TABLETS BY MOUTH ONCE DAILY FOR 5 DAYS AND THEN 2 ONCE DAILY FOR 5 DAYS AND THEN 1 ONCE DAILY FOR 5 DAYS AND THEN 1/2 (ONE-ANKUSH F) ONCE DAILY FOR 5 DAYS THEN STOP active Not Available Not Available No t Available hydrocodon e 10 mg-acetami nophen 325 mg tablet Take 1 tablet every 6 hours by oral route. 2022 active Not Available Not Available Not Avai lable prednisone 10 mg tablets in a dose pack Take 1 tab by mouth, 3 times a day for 3 daysTake 1 tab by mouth 2 times a day for 2 daysTake 1 tab by mouth once a day for 1 day 06/21 completed Not Available Not Available Not Available amoxicilli n 875 mg tablet Take 1 tablet every 12 hours by oral route for 7 days. active Not Available Not Available No t Available citalopram 20 mg tablet Take 1 tablet every day by oral route. active Not Available Not Available No t Available lorazepam 0.5 mg tablet Take 1 tablet by mouth twice daily as needed 2023 active Not Available Not Available Not Avai lable methocarba mol 750 mg tablet TAKE 1 TABLET BY MOUTH THREE TIMES DAILY NEEDED active Not Available Not Available No t Available temazepam 30 mg capsule TAKE 1 CAPSULE BY MOUTH ONCE DAILY AT BEDTIME 01/06 completed Not Available Not Available Not Available Kenalog 10 mg/mL suspension for injection In office injectio n administ ered by the provider 06/21 completed [facility]: [id number] Not Available Not Available Not Available hydrocodon e 7.5 mg-acetami nophen 325 mg tablet TAKE 1 TABLET BY MOUTH EVERY 6 HOURS NEEDED active Not Available Not Available No t Available cephalexin 500 mg capsule TAKE 1 CAPSULE BY MOUTH EVERY 6 HOURS active Not Available Not Available No t Available pantoprazo le 40 mg tablet,del ayed release Take 1 tablet by mouth once daily active Not Available Not Available No t Available nystatin 100,000 unit/gram topical cream APPLY TO THE AFFECTED AREA(S) BY TOPICAL ROUTE 2 TIMES PER DAY active Not Available Not Available No t Available nitroglyce rin 0.4 mg sublingual tablet active Not Available Not Available Not Available gabapentin 300 mg capsule 1 po qhs x 7 days then increase to 1 po bid active Not Available Not Available No t Available methylpred nisolone 4 mg tablets in a dose pack Take by oral route as per package insert active Not Available Not Available No t Available Percocet 5 mg-325 mg tablet 10/23 completed septra ds Not Available Not Available Not Available oxycodone 5 mg tablet TAKE 1 TABLET BY MOUTH EVERY 4 HOURS NEEDED FOR PAIN RATED 4-6 FOR 7 DAYS active Not Available Not Available No t Available neomycin-p olymyxin-h ydrocort 3.5 mg-10,000 unit/mL-1 % ear drops,susp INSTILL 4 DROPS INTO AFFECTED EAR(S) BY OTIC ROUTE 3 TIMES PER DAY 10/12 completed Not Available Not Available Not Available Bactrim DS 800 mg-160 mg tablet Take 1 tablet every 12 hours by oral route for 5 days. 01/06 completed Not Available Not Available Not Available cyclobenza vipul 5 mg tablet Take 1 tablet by mouth three times daily as needed 08/08 completed Not Available Not Available Not Available Golytely 227.1 gram-21.5 gram-6.36 gram oral powder packet 03/19 completed Not Available Not Available Not Available rosuvastat in 5 mg tablet TAKE 1 TABLET BY MOUTH ONCE DAILY active Not Available Not Available No t Available fexofenadi ne 2020 active Not Available Not Available Not Avai lable Tagamet HB 2020 active Not Available Not Available Not Avai lable lidocaine (PF) 10 mg/mL (1 %) injection solution In office injectio n administ ered by the provider 06/21 completed [facility]: [phone] Not Available Not Available Not Available vareniclin e tartrate 1 mg tablet Take by oral route for 28 days. active Not Available Not Available No t Available vareniclin e tartrate 0.5 mg (11)-1 mg (42) tablets in a dose pack take as directed active Not Available Not Available No t Available ProAir HFA 90 mcg/actuat ion aerosol inhaler 2 puffs q 4 hours PRN-may substitu te for most economic al inhaler 01/06 completed Not Available Not Available Not Available Spiriva Respimat 2.5 mcg/actuat ion solution for inhalation Inhale 2 puffs every day by inhalati on route. active Not Available Not Available No t Available Vitals Date Recorded Body height Body mass index (BMI) Body weight Body temperature Heart rate Oxygen saturation Systolic And Diastolic Provider Name and Address Organization Details Last Updated DateTime 4 175.26 cm 28.1 kg/m2 07805.5 5 g 97.8 [degF] 79 /min 97 % 138/76 mm[Hg] Natalee Ross RN [facility] [email or web address] [facility] 4 14:53:44 Date Recorded Body height Body mass index (BMI) Body weight Body temperature Heart rate Oxygen saturation Systolic And Diastolic Provider Name and Address Organization Details Last Updated DateTime 3 175.26 cm 28.8 kg/m2 63284.5 1 g 98 [degF] 82 /min 97 % 138/67 mm[Hg] Blanca Cunningham [facility] [employer] [facility] [email or web address] [facility] 3 16:36:47 Date Recorded Body height Body mass index (BMI) Body weight Body temperature Oxygen saturation Heart rate Systolic And Diastolic Provider Name and Address Organization Details Last Updated DateTime 3 175.26 cm 27.8 kg/m2 78870.3 7 g 96.5 [degF] 98 % 76 /min 136/76 mm[Hg] Blanca Cunningham [facility] [employer] [facility] [email or web address] [facility] 3 09:02:55 Date Recorded Body height Body mass index (BMI) Body weight Body temperature Heart rate Oxygen saturation Systolic And Diastolic Provider Name and Address Organization Details Last Updated DateTime 3 175.26 cm 28.4 kg/m2 31220.7 4 g 97.3 [degF] 74 /min 97 % 136/82 mm[Hg] Peterson Lea RN [facility] [email or web address] [facility] 3 15:08:43 Date Recorded Body height Body mass index (BMI) Body weight Body temperature Heart rate Oxygen saturation Systolic And Diastolic Provider Name and Address Organization Details Last Updated DateTime 3 175.26 cm 28.1 kg/m2 41478.5 5 g 98.2 [degF] 80 /min 97 % 150/78 mm[Hg] Peterson Lea RN [facility] [employer] [facility] 3 14:43:21 Social History Question Answer Notes LastModified by Organizat ion Details LastModified Time Tobacco Smoking Status Current Every Day Smoker Not Available [facility] 06/22/2022 05:53:17 Do You Wear A Helmet When Biking? No [id number] Information not available 06/22/2022 What Is Your Level Of Caffeine Consumption? Moderate [id number].[id number] Information not available 06/22/2022 In The 14 Days Before Symptom Onset, Have You Had Close Contact With A Laboratory-confirm ed COVID-19 While That Case Was Ill? No MIGRATION.[id number] 6035 Information not available 06/22/2022 In The 14 Days Before Symptom Onset, Have You Had Close Contact With A Person Who Is Under Investigation For COVID-19 While That Person Was Ill? No MIGRATION.[id number] Information not available 06/22/2022 What Type Of Diet Are You Following? REGULAR MIGRATION.[id number] Information not available 06/22/2022 What Was The Date Of Your Most Recent Tobacco Screening? 01/06/2021 MIGRATION.[id number] Information not available 06/22/2022 What Is Your Current Pack Years? 10-19packyegerald s ociols17 Information not available 06/28/2022 Have You Ever Been Counseled For Unhealthy Alcohol Use? No MIGRATION.109624 2934 Information not available 06/22/2022 What Is Your Relationship Status? MIGRATION.265594 7435 Information not available 06/22/2022 Do You Use Your Seat Belt Or Car Seat Routinely? Yes MIGRATION.398393 3640 Information not available 06/22/2022 How Much Tobacco Do You Smoke? 2 PPD MIGRATION.712102 6444 Information not available 06/22/2022 Has Tobacco Cessation Counseling Been Provided? No MIGRATION.850568 4771 Information not available 06/22/2022 How Many Years Have You Smoked Tobacco? 50 MIGRATION.598421 9299 Information not available 06/22/2022 Have You Recently Traveled Abroad? No MIGRATION.951306 5040 Information not available 06/22/2022 Are You Currently In School? No MIGRATION.870547 2632 Information not available 06/22/2022 Do You Have Any Dietary Restrictions? No MIGRATION.617447 2892 Information not available 06/22/2022 Sex: Unknown Functional Status Question Answer Note LastModified by Organizat ion Details LastModified Time Do you use any illicit or recreational drugs? No MIGRATION.[id number] 026 Information not available 06/22/2022 What is your level of alcohol consumption? 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 Occasional MIGRATION.[id number] 026 Information not available 06/22/2022 Mental Status Question Answer Note LastModified by Organizat ion Details LastModified Time Do you feel stressed (tense, restless, nervous, or anxious, or unable to sleep at night)? [id number] [id number].[id number] Information not available 06/22/2022 Family History Relationship Description Onset Age of this Age Resolved Age Notes LastModified by Organization Details LastModified Time Brother Essential hypertension [id number] Not available 06/22/2022 05:53:28 Brother Malignant neoplasm of liver MIGRATION.[id number] Not available 06/22/2022 05:53:28 Father Chronic obstructive pulmonary disease MIGRATION.[id number] Not available 06/22/2022 05:53:28 Medical History No medical history recorded. Immunizations Vaccine Type Date Status Note Provider Nam e and Address Organization Details Recorded Time Influenza, high-dose, quadrivalent, PF 3 completed Peterson Lea [facility] [place] [facility] AfterYes 12/29/2022 15:33:52 Tdap 8 completed Not Available [facility] 06/22/2022 06:04:18 pneumococcal polysaccharide PPV23 completed Not Available [facility] 06/22/2022 06:04:18 Past Encounters Encounter ID Performer Location Encounter Start Date Encounter Closed Date Diagnosis/Indication Diagnosis SNOMED-CT Code Diagnosis ICD10 Code Diagnosis IMO Codes Diagnosis Note [id number] José Miguel Mason MD [place] [place] [facility] [place] [address] [facility] [place] [address] 01/06/2021 00:00:00 01/20/2021 08:59:25 [id number] José Miguel Mason MD [place] [place] [address] [place] [address] 02/17/2021 00:00:00 02/18/2021 08:51:22 [id number] Farooq Min MD [facility]_[address], [address] [place] [address] 03/02/2021 00:00:00 03/02/2021 10:23:28 [id number] Farooq Min MD [facility]_[place] [address] [facility], [address] [place] [address] 03/30/2021 00:00:00 03/30/2021 09:18:35 [id number] José Miguel Mason MD [facility] [place] [address] [place] [address] [address] [place] [address] 06/21/2021 00:00:00 06/21/2021 13:18:17 [id number] MICHELLE Amos [facility] [place] [address] [place] [address] [address] [place] [address] 07/27/2021 00:00:00 07/27/2021 11:29:31 [id number] MICHELLE Amos [facility] [place] [address] [place] [address] [address] [place] [address] 10/11/2021 00:00:00 10/11/2021 08:58:57 [id number] José Miguel Mason MD [facility] [place] [address] [place] [address] [address] [place] [address] 11/25/2021 00:00:00 11/25/2021 09:01:34 [id number] José Miguel Mason MD [facility] [place] [address] [place] [address] [address] [place] [address] 05/24/2022 00:00:00 05/24/2022 15:21:05 [id number] MICHELLE Amos [facility] [place] [address] [place] [address] [address] [place] [address] 06/28/2022 16:27:56 07/13/2022 15:25:49 Syncope [id number] R55 Most likely due to dehydratio n in combinatio n with alcohol consumptio n.Labs completed 05/24/31 - BMP, Hepatic panel, Lipids, PSA unremarkab le.He has hx of CAD and is establishe d with cardiology (U), he was supposed to go last month but had to cancel due to illnesses in the family. Advised he contonue routine f/u. Otalgia of right ear 904 9858713 H92.01 Needs new referral for EENT. Degenerati on of lumbar intervertebral disc 94323640 M51.36 Would like to try different muscle relaxer. Will do trial of methocarba mol. [id number] MICHELLE Amos [facility] Primary Care [facility] [address] [place] [address] 08/08/2022 08:58:31 08/08/2022 09:43:45 Degeneration of lumbar intervertebral disc 07311068 M51.36 Will get updated imaging.Ad vised to work on gentle stretching .Will start daily meloxicam. Continue muscle relaxer as needed. Will do temporary course of steroids and pain medication for breakthrou gh pain, advised to use sparingly. Degenerati on of cervical intervertebral disc 56450161 M50.30 Will get updated imaging.Ad vised to work on gentle stretching . [id number] José Miguel Mason MD [facility] Primary Care [facility] [address] [place] [address] 11/22/2022 15:04:08 11/22/2022 15:27:28 Degeneration of lumbar intervertebral disc 56485422 M51.36 no alf improvemen t with steroidsun able to complete PT due to findings on evaluation exam today agreed with PT eval-clonu s, hyperrefle daly, decreased strength in UE and LEvery worrisome for spinal stenosis, need MRI and neurosurge ry evaluation Degenerati on of cervical intervertebral disc 32925844 M50.30 no meterman improvemen t with steroidsun able to complete PT due to findings on evaluation exam today agreed with PT eval-clonu s, hyperrefle daly, decreased strength in UE and LEvery worrisome for spinal stenosis, need MRI and neurosurge ry evaluation [id number] José Miguel Mason MD [facility] Primary Care [facility] [address] [place] [address] 12/29/2022 14:39:55 12/29/2022 15:39:53 Administration of influenza vaccine [id number] Z23 Degenerati on of cervical intervertebral disc 10659344 M50.30 no alf improvemen t with steroidsun able to complete PT due to findings on evaluation exam today agreed with PT eval-clonu s, hyperrefle daly, decreased strength in UE and LEvery worrisome for spinal stenosis, need MRI and neurosurge ry evaluation update 12/29/22: MRI confirms severe degenerati ve change and likely myelopathy in cervical spinerepea t course of prednisone with food, avoid other nsaidscont inue gabapentin 600 mg bidrefill hydrocodon e/apap 10/325 pt uses this sparinglyh as appt with neurosurge ry next week Degenerati on of lumbar intervertebral disc 95041488 M51.36 no alf improvemen t with steroidsun able to complete PT due to findings on evaluation exam today agreed with PT eval-clonu s, hyperrefle daly, decreased strength in UE and LEvery worrisome for spinal stenosis, need MRI and neurosurge ry evaluation update 12/29/22: MRI confirms degenerati ve disk disease in lumbar spijnerepe at course of prednisone with food, avoid other nsaidscont inue gabapentin 600 mg bidrefill hydrocodon e/apap 10/325 pt uses this sparinglyh as appt with neurosurge ry next week [id number] GALILEO Harrison [facility] Primary Care [address] [place] [address] 05/25/2023 14:42:31 05/25/2023 15:16:15 Pain of left shoulder joint [id number] 5735794 M25.512 -recent hx of cervical fusion in February-left shoulder pain has been an issue for about 2 weeks-bret nol for pain-his surgeon started physical therapy last week [facility] for 6 weeks-next f/u with surgeon is in June-decl tess muscle relaxers at this time-he would like to try a round of steroids-h e plans to continue with physical therapy-renuka nogueira form completed Health Concerns Section Related Observation LastModified by Organization Detai ls LastModified Time None Recorded Concern Status LastModified by Organization Details LastModified Time None Recorded Advance Directives Directive None Recorded Payers Insurance Date Sequence Insurance Name Policy Number Policy Light Covered Member ID Light Member ID Guarantor Name 05/25/2023 1 [place] Carlos Blue Jr [id number] Carlos Blue Notes Date Note Type Note Provider Name and Address Organization Details Recorded Time 06/28/2022 text/html Pt. here with complaints of dizziness, states he passed out on Monday. He states he was just playing pool and passed out. A witness said he was out for only a few seconds. He denies hitting his head on anything. He states he did feel like he was having vertigo type symptoms beforehand. He denies any chest pain, shortness of breath. He states he had only drank about 12 ounces of water that day. He states he has always had good blood pressure. 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 He states all symptoms have resolved. No additional syncopal episodes have occurred since. MICHELLE Amos [address], [email or web address], [place], [address], [employer] 06/28/2022 16:59:22 08/08/2022 text/html Pt. states his back has been bothering him for the last few weeks. Pain has been radiating down his left leg. states it goes all the way to the foot. He has been walking more to help try and loosen it up. Has been taking his muscle relaxer, no additional otc medications. He also has pain on the left side of neck, will go about senior living down the arm. Denies any new injury or fall. MICHELLE Amos [address] [email or web address], [place], [address], [employer] 08/08/2022 09:20:47 11/22/2022 text/html ROS as noted in the HPI Pt. states his back has been bothering him for the last few weeks. Pain has been radiating down his left leg. states it goes all the way to the foot. He has been walking more to help try and loosen it up. Has been taking his muscle relaxer, no additional otc medications. He also has pain on the left side of neck, will go about senior living down the arm. Denies any new injury or fall. update 11/22/22: He continues to have significant pain in his neck and low back with decreased strength in hands and feet. He has numbness/tingling constantly in bilateral hands and on and off in bilateral feet. His strength is decreased, legs feel like they will give out on him and he drops things when he tries to pick them up. Pain is constant and severe. He was seen by PT who canceled his session after his evaluation because they found hyper-reflexia, clonus, and decreased strength. No loss of bowel/bladder control José Miguel Mason MD [address], [place], [address], [place] 11/22/2022 15:27:12 12/29/2022 text/html ROS as noted in the HPI Pt. states his back has been bothering him for the last few weeks. Pain has been radiating down his left leg. states it goes all the way to the foot. He has been walking more to help try and loosen it up. Has been taking his muscle relaxer, no additional otc medications. He also has pain on the left side of neck, will go about senior living down the arm. Denies any new injury or fall. update 11/22/22: He continues to have significant pain in his neck and low back with decreased strength in hands and feet. He has numbness/tingling constantly in bilateral hands and on and off in bilateral feet. His strength is decreased, legs feel like they will give out on him and he drops things when he tries to pick them up. Pain is constant and severe. He was seen by PT who canceled his session after his evaluation because they found hyper-reflexia, clonus, and decreased strength. No loss of bowel/bladder control update 12/29/22: no interval change José Miguel Mason MD [address], [place], [address], [place] 12/29/2022 15:24:29 05/25/2023 text/html Pt is here for left shoulder pain ALLY Harrison-[facility] [address], [place], [address], [place] 05/26/2023 08:25:08
--- OUTSIDE RECORDS SUMMARY | 2025-03-17 02:11 | XMS_ITS | Clinical Summary ---
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 RW T: Report ID: [id number] Reading Location: [id number] Procedure Note Dada Bernabe MD - 01/19/2023 [...] Dada Bernabe M.D. RW T: Report ID: [id number] Reading Location: [place] [address] PROCEDURES Final Resu lt from Last 3 Months or Most Recently Relevant to Health Maintenance Insurance MEDICARE MEDICARE Care Teams Delivery Rep Relationship Specialty Start Date End Date Geovanna Mason MD [address] [address] PCP - General Family Medicine 01/18/23
--- OUTSIDE RECORDS SUMMARY | 2025-03-17 02:11 | XMS_ITS | Clinical Summary ---
Author Organization [facility] Address [address] [place] [address] Care Team Providers Care Fleet Administrative Assistant Name Role Phone Unknown, Provider Primary Care Provider Unavaila ble Source Comments [facility],non-owned Affiliates and Associated Physician Practices is amultiple site organization consisting of ambulatory clinics and hospital sitesin [place], [place], [place] and [place]. This disclosure is being madepursuant to the Care Everywhere program and may not contain all information available regarding this patient. 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 Gender Identity Not on file Sexual [...] CDT) BUN 13 7 - 26 mg/dL [facility] Creatinine 0.9 0.6 - 1.2 mg/dL [facility] Sodium 139 136 - 145 mmol/L [facility] Potassium 3.8 3.5 - 4.5 mmol/L [facility] Chloride 108(H) 98 - 107 mmol/L [facility] CO2 23 22 - 29 mmol/L [facility] Glucose 113 70 - 115 mg/dL [facility] Calcium 8.6 8.4 - 10.2 mg/dL [facility] Protein Total 5.8(L) 6.0 - 8.3 g/dL [facility] Albumin 3.0(L) 3.4 - 5.0 g/dL [facility] Bilirubin Total 0.6 0.2 - 1.2 mg/dL [facility] Alkaline Phosphatase 52 40 - 150 Units/L [facility] ALT 9 0 - 55 Units/L [facility] AST 15 5 - 34 Units/L [facility] Anion Gap 12 8 - 18 [facility] BUN/Creatinine Ratio 14 7 - 23 [facility] Osmolality Calculated 274 270 - 300 mOsm/kg [facility] Albumin/Globulin Ratio 1.1 1.1 - 2.3 [facility] eGFR >60 >60 mL/min/1.7 3 m2 [facility] Blood specimen (specimen) BLOOD SPECIMEN / Unknown 01/14/2014 2:34 AM CDT 01/14/2014 2:53 AM CDT us Sushil Bazzi DO LAB - CHEMISTRY ORDERABLES F inal Result [address] [phone] from Last 3 Months or Most Recently Relevant to Health Maintenance Insurance SELF PAY NO INSURANCE Member Subscriber Plan / Payer (Ef fective for All Dates) Name:Perry Corona Member ID:Not on file Relation to Subscriber:Self Name:Perry Corona Subscriber ID:Not on file Payer ID:Not on file Group ID:Not on file Type:Self Pay Address: [place], [place] [employer] MED[employer]ARE ADV SELF PAY NO INSURANCE Member Subscriber Plan / Payer (Ef fective for All Dates) Name:Perry Corona Member ID:Not on file Relation to Subscriber:Not on file Name:PERRY CORONA Subscriber ID:Not on file (Home) Address: [place] [address] Payer ID:Not on file Group ID:Not on file Type:Self Pay Address: [place], [place] Care Teams Fleet Administrative Assistant Relationship Specialty Start Date End Date Unknown, Provider PCP - General 12/06/19
--- OUTSIDE RECORDS SUMMARY | 2025-03-17 02:11 | XMS_ITS | Clinical Summary ---
Author Organization [facility] Address [address] [place] [id number] Care Team Providers Care Decontamination Technician Name Role Phone Unavailable Primary Care [...] of 2) 2004 COVID-19 Vaccine (1 - 2024-2 6 season) 2024 Influenza Adult (#1) 2025 RSV Immunization or 60+ Years (1 - 1-dose 75+ series) 2029 Hepatitis A Vaccines Aged Out No long er eligible based on patient's age to complete this topic Meningococcal B Vaccine Aged Out No l onger eligible based on patient's age to complete this topic Meningococcal Vaccine Aged Out No hugh claudette eligible based on patient's age to complete this topic RSV Immunizations Under 20 Months Aged Out No longer eligible based on patient's age to complete this topic
[2025-03-17 11:08] VITALS: BP 129/63; PULSE 78; RESP 20; TEMP 36.4; O2SAT 95
[2025-03-17] MEDS: LACTATED RINGERS 1,000 ML 150 ML IV CONT (11:15)
--- NOTE | 2025-03-17 12:14 | WPDANESEPPF ---
Anes - Initial Pre Proc Eval Procedure: Operation Date: 03/17/25 12:45 Proposed Procedures p Esophagogastroduodenoscopy - Kasi Rudolph MD Date/Time: 03/17/25 12:14 Surgeon: Kasi Rudolph MD Pre Op Diagnosis: Nausea with vomiting, unspecified Patient Data Age: 69 Gender: M Height: 1.7 m Weight: 87 kg Last Vital Signs Temp 97.6 F 03/17/25 11:08 Pulse 78 03/17/25 11:08 Resp 20 03/17/25 11:08 BP 129/63 03/17/25 11:08 Pulse Ox 95 03/17/25 11:08 O2 Del Method Room Air 03/17/25 11:08 Allergies Allergy/AdvReac Type Severity Reaction Status Date / Time No Known Allergies Allergy Unknown Verified 03/17/25 11:07 Home Medications ?Medication ?Instructions ?Recorded ?Confirmed ?Type triamcinolone acetonide 0.1 % 1 applic topical BID PRN rash #80 12/26/23 03/17/25 Rx topical cream grams gabapentin 600 mg tablet 600 mg PO BID #180 tabs 04/25/24 03/17/25 Rx albuterol sulfate 90 mcg/actuation 1 inh inhalation QID PRN Shortness 07/12/24 03/12/25 Rx aerosol inhaler Of Breath #8.5 grams fluticasone propionate 50 1 spray intranasal DAILY PRN nasal 12/12/24 03/17/25 History mcg/actuation nasal congestion spray,suspension hydrocodone 5 mg-acetaminophen 325 1 tablet PO DAILY PRN pain #30 tabs 01/17/25 03/12/25 Rx mg tablet pantoprazole 40 mg tablet,delayed 40 mg PO QAM 3 months #90 tabs 01/27/25 03/17/25 Rx release clonazepam 0.5 mg tablet 0.5 mg PO BID PRN anxiety #60 tabs 02/20/25 03/12/25 Rx fluoxetine 40 mg capsule 40 mg PO HS 03/12/25 03/17/25 History methocarbamol 500 mg tablet 1,000 mg PO TID PRN muscle spasm 03/12/25 03/17/25 History Patient hx anesthesia problems: none Family hx anesthesia problems: none Results Review: All pre-operative results and documents have been reviewed as part of the pre-operative evaluation. [facility] Past Medical History Medical History Nausea and vomiting Epigastric pain Adenomatous colon polyp GERD (gastroesophageal reflux disease) Asthma Chronic ethmoidal sinusitis Conductive hearing loss in right ear Mixed hearing loss of right ear Conductive hearing loss, unilateral, right ear with restricted hearing on the contralateral side Bilateral impacted cerumen Bilateral hearing loss Otorrhea of left ear COPD (chronic obstructive pulmonary disease) Hyperlipidemia Hernia BMI 30.0-30.9,adult BMI 29.0-29.9,adult Surgical History Surgical History Status post cervical arthrodesis History of ankle surgery H/O rotator cuff surgery Family History Family History Father Heart disease Mother Sibling Hypertension Heart disease Breast cancer Brain tumor Social History Social History Social History: Caffeine-coffee Smoking packs per day: 1 Smoking cigarettes per day: 20.0 Years smoked: 55 Smoking pack-years: 55.00 Smoking status: Current every day smoker Tobacco type: cigarettes Second hand tobacco smoke exposure: Yes Alcohol intake: former Drinks per week: 12 Alcohol use details: QUIT 12/2024, HEAVY DRINKER YEARS AGO Substance use: never Substance use type: does not use Do You Feel Safe in your Home?: Yes Lack of Transportation: No Lack of Food: Never True Current Housing: I Have Housing Concerned About Future Housing: No Difficulty Paying Gas/Electric Bills: No Difficulty Paying for Meds: No Currently Unemployed: No Education: High School Diploma/GED Difficulty w/ Childcare or Family Care: No Living arrangements: with family Additional living arrangements comments: Occupation/Education: retired Additional occupation/education comments: [email or web address] Gender identity (if verbalized by the patient): Male Spiritual care concerns: No Anes - Eval Final PreProcedure Day of Procedure 03/17/25 12:14 Patient weight: obese Lungs: normal air movement Airway: Mallampati scale class II and special considerations (Missing upper. ) Neurological: alert and oriented Last oral intake: >/= 8 hours ASA classification: III Emergent: no Anesthetic plan: proceed Anesthesia type and monitoring: general GIVS and standard monitoring Results Review: All pre-operative results and documents have been reviewed as part of the pre-operative evaluation. COPD/asthma, stable. GERD. Informed Consent: The patient's anesthetic plan and its attendant risks and benefits were discussed with the patient/family/POA. Questions were solicited and answers provided to the satisfaction of the patient/family/POA.
--- NOTE | 2025-03-17 12:21 | PM.HPGS ---
History of Present Illness History of Present Illness Consent: Risks, benefits, and alternatives have been discussed and questions answered. Patient agrees to proceed with procedure. Chief complaint: Nausea with vomiting, unspecified Narrative: Carlos Blue Jr. is a 69 year old male wiht coffee ground emesis about 2 months ago then started on pantoprazole and no more issues but never had egd Review of Systems Review of Systems: All systems reviewed & are unremarkable except as noted in HPI and below PMFSH Past Medical History Medical History (Updated 03/17/25 @ 12:22 by Kasi Rudolph MD) Coffee ground emesis Nausea and vomiting Epigastric pain Adenomatous colon polyp GERD (gastroesophageal reflux disease) Asthma Chronic ethmoidal sinusitis Conductive hearing loss in right ear Mixed hearing loss of right ear Conductive hearing loss, unilateral, right ear with restricted hearing on the contralateral side Bilateral impacted cerumen Bilateral hearing loss Otorrhea of left ear COPD (chronic obstructive pulmonary disease) Hyperlipidemia Hernia BMI 30.0-30.9,adult BMI 29.0-29.9,adult Surgical History Surgical History Status post cervical arthrodesis History of ankle surgery H/O rotator cuff surgery Family History Family History Father Heart disease Mother Sibling Hypertension Heart disease Breast cancer Brain tumor Social History Social History Social History: Caffeine-coffee Smoking packs per day: 1 Smoking cigarettes per day: 20.0 Years smoked: 55 Smoking pack-years: 55.00 Smoking status: Current every day smoker Tobacco type: cigarettes Second hand tobacco smoke exposure: Yes Alcohol intake: former Drinks per week: 12 Alcohol use details: QUIT 12/2024, HEAVY DRINKER YEARS AGO Substance use: never Substance use type: does not use Do You Feel Safe in your Home?: Yes Lack of Transportation: No Lack of Food: Never True Current Housing: I Have Housing Concerned About Future Housing: No Difficulty Paying Gas/Electric Bills: No Difficulty Paying for Meds: No Currently Unemployed: No Education: High School Diploma/GED Difficulty w/ Childcare or Family Care: No Living arrangements: with family Additional living arrangements comments: Occupation/Education: retired Additional occupation/education comments: [email or web address] Gender identity (if verbalized by the patient): Male Spiritual care concerns: No Meds Home Medications and Allergies Home Medications ?Medication ?Instructions ?Recorded ?Confirmed ?Type triamcinolone acetonide 0.1 % 1 applic topical BID PRN rash #80 12/26/23 03/17/25 Rx topical cream grams gabapentin 600 mg tablet 600 mg PO BID #180 tabs 04/25/24 03/17/25 Rx albuterol sulfate 90 mcg/actuation 1 inh inhalation QID PRN Shortness 07/12/24 03/12/25 Rx aerosol inhaler Of Breath #8.5 grams fluticasone propionate 50 1 spray intranasal DAILY PRN nasal 12/12/24 03/17/25 History mcg/actuation nasal congestion spray,suspension hydrocodone 5 mg-acetaminophen 325 1 tablet PO DAILY PRN pain #30 tabs 01/17/25 03/12/25 Rx mg tablet pantoprazole 40 mg tablet,delayed 40 mg PO QAM 3 months #90 tabs 01/27/25 03/17/25 Rx release clonazepam 0.5 mg tablet 0.5 mg PO BID PRN anxiety #60 tabs 02/20/25 03/12/25 Rx fluoxetine 40 mg capsule 40 mg PO HS 03/12/25 03/17/25 History methocarbamol 500 mg tablet 1,000 mg PO TID PRN muscle spasm 03/12/25 03/17/25 History Allergies Allergy/AdvReac Type Severity Reaction Status Date / Time No Known Allergies Allergy Unknown Verified 03/17/25 11:07 Vital Signs Vital Signs - 24 hr 03/17/25 11:08 Temperature 97.6 F Pulse Rate 78 Respiratory Rate 20 Blood Pressure 129/63 Pulse Oximetry 95 Oxygen Delivery Room Air Exam Const: General: comfortable and no acute distress HENMT: Face/Nose/Sinus: Normal nares present Eyes: General: appearance normal, both eyes and all related structures Neck: Neck: no JVD Resp: Auscultation: clear to auscultation bilaterally Cardio: Rate: regular rate Rhythm: regular rhythm GI: Inspection: non-distended GI Palp: Yes Soft to palpation Skin: General skin exam: normal color Extrem: General: normal to inspection Psych: Mental Status: mental status grossly normal Assessment and Plan Assessment and plan (1) Coffee ground emesis: Code(s): K92.0 - Hematemesis Status: Acute Assessment and Plan: egd already on ppi and denies any more episodes
[2025-03-17 12:39] VITALS: BP 93/52; PULSE 66; RESP 20; O2SAT 99
--- NOTE | 2025-03-17 12:43 | S_PTH ---
PATIENT: Carlos Blue Jr. LOC: [facility]#:[id number] AGE/SX: 69/M ROOM: RE03/17/[address]: Kasi Rudolph MD : 1955 BED: DIS: 03/17/2025 SPEC #: [id number] RECD: 03/17/25 13:26 STATUS: SINA RELynnette #: [id number] HUGO: 03/17/25 12:[address]: Kasi Rudolph DEPT: [facility] Surgical RECD BY: Trisha Stephens ENTERED: 03/17/25 13:26 SP TYPE: Surgical OTHR DR: Bernarda Ames, KALI Tissues: A - Gastric Biopsy Procedures: Hematoxylin and Eosin Stain Gross and Microscopic Level 4
[2025-03-17 12:49] VITALS: BP 104/63; PULSE 64; RESP 20; O2SAT 98
[2025-03-17 12:59] VITALS: BP 126/68; PULSE 65; RESP 20; O2SAT 100
== END 2025-03-17 13:13 | disposition home or self-care (01) ==
PROVIDERS: PCP Nurse Practitioner; Visit Provider Internal Medicine Gastroenterology
PROC: 0DJ08ZZ Inspection of Upper Intestinal Tract, Via Natural or Artificial Opening Endoscopic (ICD-10-PCS; CPT 43239; principal; 2025-03-17 12:45)
DX: K92.0 Hematemesis (principal); K44.9 Diaphragmatic hernia without obstruction or gangrene; K31.7 Polyp of stomach and duodenum; F17.210 Nicotine dependence, cigarettes, uncomplicated; E66.9 Obesity, unspecified; Z68.30 Body mass index [BMI] 30.0-30.9, adult
CPT/HCPCS: 43239; 43236; 43251; 88305; J2704; J7120

== ENCOUNTER 2025-03-19 11:45 | Outpatient (CLI) | payer MEDICARE, SELFPAY ==
--- NOTE | ~2025-03-19 | XR_ITS ---
EXAMINATION: XR chest 2V 03/19/2025 12:02 INDICATION: Cough PROCEDURE: 2 view chest COMPARISON: 03/12/2025 FINDINGS: The lungs are clear. The cardiomediastinal silhouette is within normal limits. There are no pleural effusions. There is no pneumothorax suspected. IMPRESSION: 1: NO ACUTE CARDIOPULMONARY DISEASE. Reviewed, dictated and finalized at location O. [facility]
== END 2025-03-19 11:46 | disposition home or self-care (01) ==
LOC: GOSHIMG 11:45
PROVIDERS: PCP Neurological Surgery; Visit Provider Nurse Practitioner
DX: R05.9 Cough, unspecified (principal)
CPT/HCPCS: 71046